=== PATIENT | female | born 1995 | race Caucasian/White ===

== ENCOUNTER 2020-04-04 19:42 | Emergency (ER) | payer OTHER ==
[2020-04-04] MEDS ORDERED: MORPHINE 4 MG/ML 1ML VIAL/SYRINGE (J2270) As Ordered ONE (19:43)
[2020-04-04] MEDS ORDERED: MORPHINE 4 MG/ML 1ML VIAL/SYRINGE (J2270) ONE (19:43)
[2020-04-04] MEDS ORDERED: ISOVUE-370 76% 100ML VIAL As Ordered ONE (22:06)
[2020-04-04] MEDS ORDERED: KETOROLAC 30 MG/ML 1ML VIAL As Ordered ONE (23:28)
[2020-04-04] MEDS ORDERED: KETOROLAC 30 MG/ML 1ML VIAL ONE (23:28)
[2020-05-04 18:07] LABS: BASO # 0.1 10^3/uL (0.0-0.2); BASO % 0.8 % (0.0-1.0); EOS # 0.1 10^3/uL (0.0-0.5); EOS % 0.8 % (0.0-3.0); HEMATOCRIT 33.1 % (36.0-47.0); HEMOGLOBIN 10.5 g/dl (12.0-15.5); LYMPH # 1.7 10^3/uL (1.5-5.0); LYMPH % 24.3 % (24.0-44.0); MEAN CORPUSCULAR HEMOGLOBIN 30.2 pg (27.0-33.0); MEAN CORPUSCULAR HGB CONC 31.7 g/dl (32.0-36.5); MEAN CORPUSCULAR VOLUME 95.1 fl (80.0-96.0); MONO # 0.4 10^3/uL (0.0-0.8); MONO % 5.3 % (0.0-5.0); NEUTROPHILS # 4.9 10^3/uL (1.5-8.5); NEUTROPHILS % 68.5 % (36.0-66.0); PLATELET COUNT, AUTOMATED 421 10^3/uL (150-450); RED BLOOD COUNT 3.48 10^6/uL (4.00-5.40); WHITE BLOOD COUNT 7.2 10^3/uL (4.0-10.0)
[2020-05-17 10:10] LABS: ALBUMIN 4.2 GM/DL (3.2-5.2); ALT/SGPT 11 U/L (12-78); BILIRUBIN,TOTAL 0.5 MG/DL (0.2-1.0); BLOOD UREA NITROGEN 11 MG/DL (7-18); CALCIUM LEVEL 9.8 MG/DL (8.5-10.1); CARBON DIOXIDE LEVEL 29 MEQ/L (21-32); CHLORIDE LEVEL 106 MEQ/L (98-107); GLOMERULAR FILTRATION RATE > 60.0 (>60); GLUCOSE, FASTING 91 MG/DL (70-100); LIPASE 492 U/L (73-393); POTASSIUM SERUM 4.3 MEQ/L (3.5-5.1); SODIUM LEVEL 140 MEQ/L (136-145); TOTAL PROTEIN 7.6 GM/DL (6.4-8.2)
[2020-05-17 10:11] LABS: HCG, SERUM QUALITATIVE NEGATIVE (NEGATIVE)
[2020-05-17 10:14] LABS: AMPHETAMINES LEVEL URINE NEGATIVE (NEGATIVE); BARBITURATES URINE NEGATIVE (NEGATIVE); BENZODIAZEPINES URINE NEGATIVE (NEGATIVE); CANNABINOIDS URINE NEGATIVE (NEGATIVE); COCAINE METABOLITE URINE NEGATIVE (NEGATIVE); METHADONE URINE NEGATIVE (NEGATIVE); OPIATES URINE POSITIVE (NEGATIVE); PHENCYCLIDINE URINE NEGATIVE (NEGATIVE)
[2020-05-19 11:20] LABS: APPEARANCE, URINE HAZY (CLEAR); BACTERIA, URINE AUTO NEGATIVE (NEGATIVE); BILIRUBIN, URINE AUTO NEGATIVE (NEGATIVE); BLOOD, URINE BLOOD NEGATIVE (NEGATIVE); COLOR, URINE STRAW (YELLOW); GLUCOSE, URINE (UA) AUTO NEGATIVE (NEGATIVE); KETONE, URINE AUTO NEGATIVE (NEGATIVE); LEUKOCYTE ESTERASE, URINE AUTO NEGATIVE (NEGATIVE); MUCUS, URINE SMALL (NEGATIVE); NITRITE, URINE AUTO NEGATIVE (NEGATIVE); PROTEIN, URINE AUTO NEGATIVE (NEGATIVE); RBC, URINE AUTO 1 /HPF (0-3); SQUAMOUS EPITHELIAL CELL UR AU 21 /HPF (0-6); UROBILINOGEN, URINE AUTO 0.2 mg/dL (0.0-2.0); WBC, URINE AUTO 0 /HPF (0-3)
[2020-05-19 11:21] LABS: SPECIFIC GRAVITY URINE AUTO >1.060 (1.002-1.035)
== END 2020-04-05 02:00 | disposition home or self-care (01) ==
LOC: M ED 19:42
DX: N83.201 Unspecified ovarian cyst, right side (principal); D64.9 Anemia, unspecified; M51.9 Unspecified thoracic, thoracolumbar and lumbosacral intervertebral disc disorder; F17.290 Nicotine dependence, other tobacco product, uncomplicated
CPT/HCPCS: 74177; 76830; 76856; 80053; 80307; 81001; 83605; 83690; 84703; 85025; 87040; 87086; 93976; 96374; 96375; 99284; J1885; J2270; Q9967

== ENCOUNTER 2020-05-17 12:59 | Emergency (ER) | payer OTHER ==
[~2020-05-17] VITALS: Ht 147.3 cm; Wt 44.9 kg
[2020-05-17] MEDS ORDERED: TRAM50TA2 PO (13:09)
[2020-05-17] MEDS ORDERED: KETOROLAC 30 MG/ML 1ML VIAL IV ONE (13:30)
[2020-05-17] MEDS ORDERED: diphenhydrAMINE 50MG/ML VIAL (J1200) IV ONE (13:30)
[2020-05-17] MEDS ORDERED: METOCLOPRAMIDE INJ 10MG/2ML VIAL (J2765 PER 1) IV ONE (13:30)
[2020-05-17] MEDS ORDERED: NS 1,000 ML IV ONE (13:30)
[2020-05-17] MEDS ORDERED: BENZOCAINE 20% GEL 9GM TUBE (ANBESOL MAX STRENGTH) TOP ONE (13:30)
[2020-05-17] MEDS ORDERED: AUGM875T28 PO (15:33)
[2020-05-17 15:55] VITALS: BP 126/83
== END 2020-05-17 15:57 | disposition home or self-care (01) ==
LOC: M ED 12:59
DX: K02.9 Dental caries, unspecified (principal); G43.909 Migraine, unspecified, not intractable, without status migrainosus; Z79.899 Other long term (current) drug therapy
CPT/HCPCS: 84702; 96361; 96374; 96375; 99283; J1200; J1885; J2765

== ENCOUNTER → 2020-05-26 | Outpatient (CLI) | payer OTHER ==
[~2020-05-26] MED LIST: ABIL1TAB13 PO; ALBU83IN NEB; AUGM875T28 PO; COMPMIS43 XX; KLON0.5T PO; PRED20TA PO; TRAM50TA2 PO; VITA50005 PO
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
== END ==
LOC: M PAIN 08:30
PROVIDERS: ATTEND Family Medicine
DX: M54.2 Cervicalgia (principal); M54.89 Other dorsalgia; F17.290 Nicotine dependence, other tobacco product, uncomplicated; Z79.899 Other long term (current) drug therapy

== ENCOUNTER 2020-07-08 17:10 | Emergency (ER) | payer OTHER ==
[~2020-07-08] VITALS: Ht 147.3 cm; Wt 44.8 kg
[~2020-07-08 17:10] MED LIST changes: -ABIL1TAB13 PO; -ALBU83IN NEB; -COMPMIS43 XX; -KLON0.5T PO; -PRED20TA PO; -VITA50005 PO
[2020-07-08] MEDS ORDERED: ABIL1TAB13 PO (17:24)
[2020-07-08] MEDS ORDERED: VITA50005 PO (17:24)
[2020-07-08] MEDS ORDERED: KLON0.5T PO (17:24)
[2020-07-08] MEDS ORDERED: ALBUTEROL 90 MCG/ACT 8GM HFA INHALER INH ONE (17:45)
[2020-07-08] MEDS ORDERED: NS 1,000 ML IV ONE (17:45)
[2020-07-08 18:33] LABS: VENOUS BASE EXCESS -7.8 (-2.0-2.0); VENOUS HCO3 16.7 MEQ/L (23.0-27.0); VENOUS O2 SATURATION 71.2 % (60.0-80.0); VENOUS PARTIAL PRESSURE CO2 30.8 mmHg (38.0-50.0); VENOUS PARTIAL PRESSURE O2 38.8 mmHg (30.0-50.0); VENOUS PH 7.351 UNITS (7.330-7.430); VENOUS STANDARD HCO3 17.7 MEQ/L; VENOUS TOTAL CO2 17.6 MEQ/L (24.0-28.0)
[2020-07-08 18:38] LABS: BASO % 0.4 % (0.0-1.0); EOS % 0.3 % (0.0-3.0); HEMATOCRIT 33.4 % (36.0-47.0); HEMOGLOBIN 10.8 g/dl (12.0-15.5); LYMPH # 1.5 10^3/uL (1.5-5.0); LYMPH % 20.1 % (24.0-44.0); MEAN CORPUSCULAR HEMOGLOBIN 29.8 pg (27.0-33.0); MEAN CORPUSCULAR HGB CONC 32.3 g/dl (32.0-36.5); MONO # 0.4 10^3/uL (0.0-0.8); MONO % 5.5 % (0.0-5.0); NEUTROPHILS # 5.4 10^3/uL (1.5-8.5); NEUTROPHILS % 73.4 % (36.0-66.0); PLATELET COUNT, AUTOMATED 193 10^3/uL (150-450); RED BLOOD COUNT 3.63 10^6/uL (4.00-5.40); WHITE BLOOD COUNT 7.3 10^3/uL (4.0-10.0)
[2020-07-08 19:19] LABS: ALBUMIN 3.9 GM/DL (3.2-5.2); ALT/SGPT 12 U/L (12-78); BILIRUBIN,DIRECT 0.1 MG/DL (0.0-0.2); BILIRUBIN,TOTAL 0.6 MG/DL (0.2-1.0); BLOOD UREA NITROGEN 4 MG/DL (7-18); CALCIUM LEVEL 8.3 MG/DL (8.5-10.1); CARBON DIOXIDE LEVEL 19 MEQ/L (21-32); CHLORIDE LEVEL 112 MEQ/L (98-107); CK-MB VALUE MASS < 1.0 NG/ML (<3.6); CPK CREATINE PHOSPHOKINASE 86 U/L (26-192); CREATININE FOR GFR 0.39 MG/DL (0.55-1.30); GLOMERULAR FILTRATION RATE > 60.0 (>60); GLUCOSE, FASTING 72 MG/DL (70-100); HCG, SERUM QUANTITATIVE 74414 MIU/ML; MB/CK RELATIVE INDEX 1.16 (< OR =4); NT-PRO BNP 14 PG/ML (<125); SODIUM LEVEL 140 MEQ/L (136-145); THYROID STIMULATING HORMONE 0.833 uIU/ML (0.358-3.740); THYROXINE (T4) 10.2 UG/DL (4.5-12.0); TOTAL PROTEIN 6.2 GM/DL (6.4-8.2); TROPONIN I < 0.02 NG/ML (< 0.10)
--- NOTE | 2020-07-08 19:31 | ECGEPIP ---
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
[2020-07-08] MEDS ORDERED: POTASSIUM CHLORIDE 10 MEQ SR TABLET PO ONE (20:00)
[2020-07-08] MEDS ORDERED: ALBU83IN NEB (20:00)
[2020-07-08] MEDS ORDERED: COMPMIS43 XX (20:00)
[2020-07-08] MEDS ORDERED: PRED20TA PO (20:00)
[2020-07-08] MEDS ORDERED: predniSONE 20 MG TAB PO ONE (20:00)
[2020-07-08 20:26] VITALS: BP 116/68
== END 2020-07-08 20:28 | disposition home or self-care (01) ==
LOC: M ED 17:10
DX: O99.511 Diseases of the respiratory system complicating pregnancy, first trimester (principal); J45.901 Unspecified asthma with (acute) exacerbation; O99.281 Endocrine, nutritional and metabolic diseases complicating pregnancy, first trimester; E87.6 Hypokalemia; R06.02 Shortness of breath; O99.331 Smoking (tobacco) complicating pregnancy, first trimester; F17.290 Nicotine dependence, other tobacco product, uncomplicated; Z3A.01 Less than 8 weeks gestation of pregnancy; Z79.899 Other long term (current) drug therapy

== ENCOUNTER 2020-07-12 13:37 | Emergency (ER) | payer OTHER ==
[~2020-07-12] VITALS: Ht 147.3 cm; Wt 45.9 kg
[~2020-07-12 13:37] MED LIST changes: +ABIL1TAB13 PO; +ALBU83IN NEB; +COMPMIS43 XX; +KLON0.5T PO; +PRED20TA PO; +VITA50005 PO
[2020-07-12 15:27] LABS: HEMATOCRIT 29.9 % (36.0-47.0); HEMOGLOBIN 9.8 g/dl (12.0-15.5); MEAN CORPUSCULAR HEMOGLOBIN 30.2 pg (27.0-33.0); MEAN CORPUSCULAR HGB CONC 32.8 g/dl (32.0-36.5); MEAN CORPUSCULAR VOLUME 92.3 fl (80.0-96.0); PLATELET COUNT, AUTOMATED 213 10^3/uL (150-450); RED BLOOD COUNT 3.24 10^6/uL (4.00-5.40); WHITE BLOOD COUNT 13.6 10^3/uL (4.0-10.0)
--- NOTE | 2020-07-12 15:34 | REP ---
INDICATION: preg. COMPARISON: None. TECHNIQUE: Real-time sonographic evaluation of gravid uterus performed. FINDINGS: There is a single living intrauterine gestation. The estimated gestational age 8 weeks 2 days based on a crown-rump length of 18 mm. EDC is 02/19/2021. The heart rate is 169 beats per minute. A yolk sac is also seen within the gestational sac. There is a small subchorionic hemorrhage measuring 14 x 4 x 27 mm. Cystic structure in the right ovary demonstrates internal septations and measures 2.1 cm maximally likely representing a corpus luteum. Blood flow seen in each ovary with duplex Doppler evaluation, with no torsion. IMPRESSION: Viable intrauterine gestation with estimated gestational age 8 weeks 2 days as discussed above. Small subchorionic hemorrhage. <Electronically signed by Edi Jose > 07/12/20 [id number]
[2020-07-12] MEDS ORDERED: clonazePAM 0.5 MG TAB PO ONE (16:00)
[2020-07-12 16:07] LABS: ACETAMINOPHEN LEVEL < 2.0 UG/ML (10.0-30.0); ALBUMIN 4.1 GM/DL (3.2-5.2); ALT/SGPT 10 U/L (12-78); BILIRUBIN,DIRECT < 0.1 MG/DL (0.0-0.2); BILIRUBIN,TOTAL 0.2 MG/DL (0.2-1.0); BLOOD UREA NITROGEN 7 MG/DL (7-18); CALCIUM LEVEL 8.7 MG/DL (8.5-10.1); CARBON DIOXIDE LEVEL 21 MEQ/L (21-32); CHLORIDE LEVEL 114 MEQ/L (98-107); CREATININE FOR GFR 0.57 MG/DL (0.55-1.30); ETHYL ALCOHOL (ETHANOL) < 0.003 % (0.000-0.010); GLOMERULAR FILTRATION RATE > 60.0 (>60); GLUCOSE, FASTING 121 MG/DL (70-100); POTASSIUM SERUM 3.7 MEQ/L (3.5-5.1); SODIUM LEVEL 141 MEQ/L (136-145); THYROID STIMULATING HORMONE 0.155 uIU/ML (0.358-3.740); TOTAL PROTEIN 6.7 GM/DL (6.4-8.2)
[2020-07-12 16:09] LABS: AMPHETAMINES LEVEL URINE NEGATIVE (NEGATIVE); BARBITURATES URINE NEGATIVE (NEGATIVE); BENZODIAZEPINES URINE NEGATIVE (NEGATIVE); CANNABINOIDS URINE NEGATIVE (NEGATIVE); COCAINE METABOLITE URINE NEGATIVE (NEGATIVE); METHADONE URINE NEGATIVE (NEGATIVE); OPIATES URINE NEGATIVE (NEGATIVE); PHENCYCLIDINE URINE NEGATIVE (NEGATIVE)
[2020-07-12 16:15] VITALS: BP 130/67
[2020-07-13] MEDS ORDERED: PRED20TA PO (13:52)
== END 2020-07-12 16:47 | disposition home or self-care (01) ==
LOC: M ED 13:37 → EDBD 13:37 → M ED 16:47
DX: O99.341 Other mental disorders complicating pregnancy, first trimester (principal); F43.0 Acute stress reaction; O99.511 Diseases of the respiratory system complicating pregnancy, first trimester; J45.909 Unspecified asthma, uncomplicated; Z3A.08 8 weeks gestation of pregnancy; Z79.899 Other long term (current) drug therapy
CPT/HCPCS: 36415; 76801; 80048; 80076; 80307; 84443; 85027; 93976; 99284; G0480

== ENCOUNTER 2020-07-13 13:42 | Inpatient (IN) | payer OTHER ==
[~2020-07-13] VITALS: Ht 147.3 cm; Wt 45.7 kg
[2020-07-13] MEDS ORDERED: PRED20TA PO (13:52)
[2020-07-13 14:37] LABS: HEMATOCRIT 33.8 % (36.0-47.0); HEMOGLOBIN 10.7 g/dl (12.0-15.5); MEAN CORPUSCULAR HEMOGLOBIN 29.7 pg (27.0-33.0); MEAN CORPUSCULAR HGB CONC 31.7 g/dl (32.0-36.5); MEAN CORPUSCULAR VOLUME 93.9 fl (80.0-96.0); PLATELET COUNT, AUTOMATED 223 10^3/uL (150-450); WHITE BLOOD COUNT 12.4 10^3/uL (4.0-10.0)
[2020-07-13 15:05] LABS: AMPHETAMINES LEVEL URINE NEGATIVE (NEGATIVE); BARBITURATES URINE NEGATIVE (NEGATIVE); BENZODIAZEPINES URINE NEGATIVE (NEGATIVE); CANNABINOIDS URINE NEGATIVE (NEGATIVE); COCAINE METABOLITE URINE NEGATIVE (NEGATIVE); METHADONE URINE NEGATIVE (NEGATIVE); OPIATES URINE NEGATIVE (NEGATIVE); PHENCYCLIDINE URINE NEGATIVE (NEGATIVE)
[2020-07-13 15:14] LABS: HCG, SERUM QUALITATIVE POSITIVE (NEGATIVE)
[2020-07-13 15:19] LABS: ACETAMINOPHEN LEVEL 5.9 UG/ML (10.0-30.0); ALBUMIN 4.1 GM/DL (3.2-5.2); ALT/SGPT 11 U/L (12-78); BILIRUBIN,DIRECT < 0.1 MG/DL (0.0-0.2); BILIRUBIN,TOTAL 0.2 MG/DL (0.2-1.0); BLOOD UREA NITROGEN 11 MG/DL (7-18); CALCIUM LEVEL 8.9 MG/DL (8.5-10.1); CARBON DIOXIDE LEVEL 21 MEQ/L (21-32); CHLORIDE LEVEL 110 MEQ/L (98-107); CREATININE FOR GFR 0.58 MG/DL (0.55-1.30); ETHYL ALCOHOL (ETHANOL) < 0.003 % (0.000-0.010); GLOMERULAR FILTRATION RATE > 60.0 (>60); GLUCOSE, FASTING 81 MG/DL (70-100); POTASSIUM SERUM 3.3 MEQ/L (3.5-5.1); SALICYLATE LEVEL 27.6 MG/DL (5.0-30.0); SODIUM LEVEL 140 MEQ/L (136-145); TOTAL PROTEIN 7.2 GM/DL (6.4-8.2)
[2020-07-13] MEDS ORDERED: POTASSIUM CHLORIDE 10 MEQ SR TABLET PO ONE (15:45)
[2020-07-13] MEDS ORDERED: traMADol 50 MG TAB PO PRN (16:45)
[2020-07-13] MEDS ORDERED: MAALOX 30 ML SUSP *UDC PO PRN (16:45)
[2020-07-13] MEDS ORDERED: traZODone 50 MG TAB PO PRN (16:45)
[2020-07-13] MEDS ORDERED: ALBUTEROL SULFATE 2.5 MG/0.5 ML INH NEB SOLN NEB PRN (16:45)
[2020-07-13] MEDS ORDERED: IBUPROFEN 400 MG TAB PO PRN (16:45)
[2020-07-13] MEDS ORDERED: MOM 30ML SUSPENSION UDC PO PRN (16:45)
[2020-07-13 21:07] VITALS: BP 115/55
[2020-07-13] MEDS ORDERED: QUEtiapine FUMARATE 50 MG TAB PO ONE (22:00)
[2020-07-13] MEDS: predniSONE 20 MG TAB PO SCH (22:09)
[2020-07-13] MEDS: ARIPiprazole 2 MG TAB PO SCH (22:09)
[2020-07-14 06:31] VITALS: BP 122/58
[2020-07-14] MEDS ORDERED: NICOTINE 7 MG/24 HR TRANSDERMAL TD SCH (09:00)
[2020-07-14] MEDS ORDERED: PRENATAL VITAMINS CHEWABLE TABLET PO SCH (09:00)
[2020-07-14] MEDS: ARIPiprazole 2 MG TAB PO SCH (10:34)
[2020-07-14] MEDS: predniSONE 20 MG TAB PO SCH (10:34)
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
--- NOTE | 2020-07-14 15:01 | MHDSPDOC ---
[facility] Discharge Summary Discharge Summary DATE OF ADMISSION: Jul 13, 2020 at 16:44 DATE OF DISCHARGE: Jul 14, 2020 at 13:00 DISCHARGE DIAGNOSES: Unspecified Schizophrenia and Other Psychotic Disorders Anxiety Disorder Borderline Personality Disorder, per patient's report Insomnia REASON FOR ADMISSION:Chief Complaint - "I had no sleep for the last 4 days and I was hearing stuff and seeing things that weren't there" History of Present Illness HISTORY OF THE PRESENT ILLNESS: Patient is a 24 -year-old , Unemployed, Domiciled , female, who brought to [facility] by her spouse after she was seen by her PCP for anxiety. She reports that she had 4 days of no sleep and was complaining of auditory and visual hallucinations. She states that she was prescribed Klonopin by her prescriber and that when she was trying to get her medications, she accidently dropped the bottle into the toilet. At the time of the initial psychiatric assessment, patient was reporting no auditory or visual hallucinations. She denies delusional, bizarre or psychotic symptoms. She was not observed with any jayson or obsessions or any other psychotic symptoms. She denied depression, anxiety, SI or HI. CONSULTANTS INVOLVED: None - patient left before this was done TREATMENT AND PROGRESS ON THE UNIT: Patient was admitted to the [facility] on a 9.39 legal status he was afforded the following treatment modalities: 1) Individual Therapy 2) Group Therapy 3) Medication Management 4) Milieu Therapy 5) Safe Environment HOSPITAL COURSE: Patient was admitted to [facility] on a 9.39 legal status. On initial psychiatric assessment patient denies having auditory or visual hallucinations. DISCHARGE ASSESSMENT: Patient is denying auditory or visual hallucinations, denies depression, suicidal/homicidal ideation. She is not observed with abnormal psychotic symptoms. She is no longer reporting any symptoms that require her continued hospitalization involuntarily. Patient requested to be discharged today. She was offered a voluntary admission and she declined. At this time, due to her normal mental status, I cannot with good petra mandate her to the hospital. Patient called her while she was in the office, her spouse feels that she has improved and can return home. Patient also has a dental appointment at 1:45 that she is wanting to go to. She also reports that she is afraid to stay on the unit due to agitated peers and states "I am , I don't know that I needed to be admitted." She reports that last night was the first night that she had received a full night's sleep. Call to pharmacy about any safe anxiolytics and Pharmacist feels that patient should refer this question to her OBGYN. MENTAL STATUS EXAMINATION ON DISCHARGE: Patient is a 24 -year-old , Unemployed, Domiciled , female, who brought to [facility] by her spouse after she was seen by her PCP for anxiety. She reports that she had 4 days of no sleep and was complaining of auditory and visual hallucinations. Hygiene is good, dressed appropriately, appears her stated age, makes good eye contact, no psychomotor changes. Speech: Is fluid, conversant, normal rate, tone and volume Language skills are intact Thought processes including: linear and goal oriented Thought content: denies depression and anxiety, SI/HI. Abstract reasoning, and computation: fair Description of associations: denies, none observed Description of abnormal or psychotic thoughts: denies, none observed. Reports no A/V/T hallucinations at this time Judgment: good Insight: good Orientation: alert and oriented to person, place, time and situation Recent and remote memory: intact Attention span and concentration: good Language: expansive Fund of knowledge: below average Mood: euthymic Affect: reactive MEDICATIONS ON DISCHARGE: Patient continued on her home medications, no changes and was encouraged to be seen by OBGYN for recommendations for safe anxiolytic PLAN/FOLLOWUP ARRANGEMENTS: [facility] The amount of time spent in the coordination of care for this patient was approximately 15 minutes. Vital Signs/I&Os Vital Signs Date Time Temp Pulse Resp B/P (MAP) Pulse Ox O2 Delivery O2 Flow Rate FiO2 07/14/20 06:31 98.4 92 16 122/58 (79) Room Air 07/13/20 21:07 99 Laboratory Data Labs 24H Laboratory Tests 2 07/13/20 17:37: Coronavirus (COVID-19)(PCR) NEGATIVE Medications Scheduled Aripiprazole (Abilify) 2 Mg Tablet, 2 MG PO TID, (Reported) Ergocalciferol (Vitamin D2) (Vitamin D2) 50,000 Units Cap, 50,000 UNITS PO QWEEK, (Reported) MONDAYS Scheduled PRN Albuterol Sulf (Albuterol Sulfate) 2.5 Mg/3 Ml Vial.neb, 1 VIAL NEB Q4HP PRN for wheezing, #50 Clonazepam (Klonopin) 0.5 Mg Tablet, 0.5 MG PO BID PRN for ANXIETY, (Reported) Tramadol HCl (Tramadol HCl) 50 Mg Tablet, 50 MG PO QID PRN for PAIN, (Reported) Allergies Coded Allergies: No Known Allergies (Unverified , 05/17/20) FERN YATES NP Jul 14, 2020 15:01
[2020-07-17] MEDS ORDERED: VITAMIN D 50,000 UNITS CAPSULE (ERGOCALCIFEROL 1.25MG) PO SCH (09:00)
== END 2020-07-14 13:00 | disposition home or self-care (01) | DRG 885 ==
LOC: M ED 13:42 → M ED INP 16:44 → M PSY 20:54
PROVIDERS: ADMIT Psychiatry & Neurology Psychiatry; ATTEND Psychiatry & Neurology Psychiatry
DX: F20.9 Schizophrenia, unspecified (principal); F41.9 Anxiety disorder, unspecified; F60.3 Borderline personality disorder; G47.00 Insomnia, unspecified

== ENCOUNTER 2020-08-13 00:47 | Emergency (ER) | payer OTHER ==
[~2020-08-13] VITALS: Ht 147.3 cm; Wt 45.0 kg
[2020-08-13] MEDS ORDERED: VITA50TA7 (00:57)
[2020-08-13] MEDS ORDERED: FLUO10CA16 (00:57)
[2020-08-13] MEDS ORDERED: QUET1TAB7 (00:57)
[2020-08-13] MEDS ORDERED: NITR100C2 (00:57)
[2020-08-13] MEDS ORDERED: FERR325T18 (00:57)
[2020-08-13] MEDS ORDERED: PEGPOW (00:57)
[2020-08-13 01:46] LABS: BASO % 0.3 % (0.0-1.0); EOS # 0.1 10^3/uL (0.0-0.5); EOS % 0.8 % (0.0-3.0); HEMATOCRIT 31.1 % (36.0-47.0); HEMOGLOBIN 10.1 g/dl (12.0-15.5); LYMPH # 1.7 10^3/uL (1.5-5.0); LYMPH % 21.1 % (24.0-44.0); MEAN CORPUSCULAR HEMOGLOBIN 29.4 pg (27.0-33.0); MEAN CORPUSCULAR HGB CONC 32.5 g/dl (32.0-36.5); MEAN CORPUSCULAR VOLUME 90.7 fl (80.0-96.0); MONO # 0.6 10^3/uL (0.0-0.8); MONO % 7.1 % (0.0-5.0); NEUTROPHILS # 5.6 10^3/uL (1.5-8.5); NEUTROPHILS % 70.4 % (36.0-66.0); PLATELET COUNT, AUTOMATED 161 10^3/uL (150-450); RED BLOOD COUNT 3.43 10^6/uL (4.00-5.40); WHITE BLOOD COUNT 7.9 10^3/uL (4.0-10.0)
[2020-08-13 02:31] LABS: BLOOD UREA NITROGEN 7 MG/DL (7-18); CALCIUM LEVEL 9.1 MG/DL (8.5-10.1); CARBON DIOXIDE LEVEL 22 MEQ/L (21-32); CHLORIDE LEVEL 106 MEQ/L (98-107); CREATININE FOR GFR 0.46 MG/DL (0.55-1.30); GLOMERULAR FILTRATION RATE > 60.0 (>60); GLUCOSE, FASTING 90 MG/DL (70-100); HCG, SERUM QUANTITATIVE 44772 MIU/ML; POTASSIUM SERUM 3.4 MEQ/L (3.5-5.1); SODIUM LEVEL 137 MEQ/L (136-145)
[2020-08-13] MEDS ORDERED: RHOGAM 300 MCG (1500 IU) INJ (J2790) IM ONE (03:00)
--- NOTE | 2020-08-13 03:16 | REPVR ---
PROCEDURE INFORMATION: Exam: US First Trimester, Transabdominal Exam date and time: 08/13/2020 2:08 AM Age: 24 years old Clinical indication: Lmp or gestational age (in weeks): 12w 5d; Other: Vaginal bleeding; ; Additional info: Vag bleeding, soft, dilated cervix, 12 wks preg TECHNIQUE: Imaging protocol: Real-time transabdominal obstetrical ultrasound of the maternal pelvis and a first trimester , less than 14 weeks 0 days, with image documentation. COMPARISON: No relevant prior studies available. FINDINGS: Gestation: Single live intrauterine fetus. Embryonic/ heart rate: 150 bpm. Placenta: Small subchorionic bleed. Amniotic fluid: Amniotic fluid is normal for gestational age. BIOMETRY: Gestational age (AUA): 12 weeks 3 day. Estimated due date (AUA): 02/22/2021. [place]-Rump length: 5.9 cm. IMPRESSION: 1. Single living intrauterine fetus with estimated gestational age of 12 weeks 3 days. 2. Small subchorionic bleed Electronically signed by: Baldomero Mccullough On 08/13/2020 03:16:46 AM
[2020-08-13 03:45] VITALS: BP 100/61
== END 2020-08-13 04:00 | disposition home or self-care (01) ==
LOC: M ED 00:47
DX: O20.0 Threatened abortion (principal); O20.8 Other hemorrhage in early pregnancy; Z3A.12 12 weeks gestation of pregnancy; Z79.51 Long term (current) use of inhaled steroids; Z79.899 Other long term (current) drug therapy
CPT/HCPCS: 76801; 80048; 81001; 84702; 85025; 86850; 86900; 86901; 96372; 99284; J2790

== ENCOUNTER 2020-09-08 19:39 | Emergency (ER) | payer OTHER ==
[~2020-09-08] VITALS: Ht 147.3 cm; Wt 46.5 kg
[~2020-09-08 19:39] MED LIST changes: +FERR325T18; +FLUO10CA16; +NITR100C2; +PEGPOW; +QUET25TA3; +VITA50TA7
[2020-09-08] MEDS ORDERED: ZOFR4TAB16 PO (19:52)
--- OUTSIDE RECORDS SUMMARY | 2020-09-08 19:57 | CCD ---
Author Author [facility] Organization [facility] [facility] Address Unknown Phone Unavailable Care Team Providers Care Patient Registration Rep Name Role Phone Elder Lu Unavailable PROBLEMS No Information ALLERGIES No Known Allergies ENCOUNTERS from 1995 to 2020-06-29 Encounter Location Date Provider Diagnosis [facility] [address] [place] [phone] Jun, Elder Lu IMMUNIZATIONS No Information SOCIAL HISTORY Sex Assigned At : Social History Observation Description Sex Assigned At Unknown Alcohol Screening: Question Answer Notes Did you have a drink containing alcohol in the past year? No Points 0 Interpretation Negative REASON FOR REFERRAL No Information VITAL SIGNS No information MEDICATIONS Medication SIG (Take, Route, Frequency, Duration) Start Date En d Date Status Flexeril 10 mg 30 10 mg one tablet orally every 8 hours prn pain Active Tramadol HCl 50 MG 1 tablet as needed Orally Once a day Active Hydrocodone-Acetaminophen 7.5-325 MG 1 tablet as needed Orally ever y 6 hrs Active Baclofen 5 MG 1 tablet with food or milk O rally Three times a day PRN for 30 days May, Active Hydrocodone-Acetaminophen 5-325 MG 1 tablet as needed Orally every 6 hrs Active PROCEDURES No Information RESULTS No Results REASON FOR VISIT MRI ORDERS MEDICAL (GENERAL) HISTORY Type Description Date Surgical History appendectomy Hospitalization History sepsis kidney infection, irr egular heart rate with low potassium. 02/2020 Goals Section No Information Health Concerns No Information MEDICAL EQUIPMENT No Information MENTAL STATUS No Information FUNCTIONAL STATUS No Information ASSESSMENTS No Information PLAN OF TREATMENT Medication Medication Name Sig Start Date Stop Date Baclofen 5 MG 1 tablet with food or milk O rally Three times a day PRN for 30 days May, Insurance Providers Payer Name Payer Address Payer Phone Insured Name Patient Relati onship to Insured Coverage Start Date Coverage End Date [facility] [address] [place] THE [facility] [address] [place] self
--- OUTSIDE RECORDS SUMMARY | 2020-09-08 19:57 | CCD ---
Author Author [facility] Organization [facility] [employer] [facility] Address Unknown Phone Unavailable Care Team Providers Care Technical Support Consultant Name Role Phone Elder Lu Unavailable PROBLEMS No Information ALLERGIES No Known Allergies ENCOUNTERS from 1995 to 2020-09-06 Encounter Location Date Provider Diagnosis [facility] [address] [place] [phone] Aug, Elder Lu IMMUNIZATIONS No Information SOCIAL HISTORY Sex Assigned At : Social History Observation Description Sex Assigned At Unknown Alcohol Screening: Question Answer Notes Did you have a drink containing alcohol in the past year? No Points 0 Interpretation Negative REASON FOR REFERRAL No Information VITAL SIGNS No information MEDICATIONS Medication SIG (Take, Route, Frequency, Duration) Notes Start Da te End Date Status Flexeril 10 mg 30 10 [...] RESULTS No Results REASON FOR VISIT MRI EXTENSION MEDICAL (GENERAL) HISTORY Type Description Date Surgical [...] a day PRN for 30 days May, Next Appt Details Provider Name:Elder Lu, 2020-10-27 09:15:00 AM, [address] [place], [phone], Insurance Providers Payer Name Payer Address Payer Phone Insured Name Patient Relati onship to Insured Coverage Start Date Coverage End Date [facility] [address] [address] [place] [id number] [place] self
--- OUTSIDE RECORDS SUMMARY | 2020-09-08 19:57 | CCD ---
Author Author [facility] Organization [facility] Address Unknown Phone Unavailable Care Team Providers Care Tool Distributor Name Role Phone Elder Lu Unavailable PROBLEMS No Information ALLERGIES No Known Allergies ENCOUNTERS from 1995 to 2020-06-14 Encounter Location Date Provider Diagnosis [facility] [address] [place] [phone] May, Elder Lu IMMUNIZATIONS No Information SOCIAL HISTORY [...] RESULTS No Results REASON FOR VISIT MRI MEDICAL (GENERAL) HISTORY Type Description Date Surgical [...] Insured Coverage Start Date Coverage End Date [facility] [address] [place] [address] [place] self
--- OUTSIDE RECORDS SUMMARY | 2020-09-08 19:57 | CCD ---
Author Author [facility] Address Unknown Phone Unavailable Care Team Providers Care Concert Promoter Name Role Phone Rodríguez MCCARTHY Unavailable Unavailable DELL AWAD Unavailable Unavailable Re-disclosure Warning The records that you are about to access may contain information from federally-assisted alcohol or drug abuse programs. If such information is present, then the following federally mandated warning applies: This information has been disclosed to you from records protected by federal confidentiality rules (42 CFR part 2). The federal rules prohibit you from making any further disclosure of this information unless further disclosure is expressly permitted by the written consent of the person to whom it pertains or as otherwise permitted by 42 CFR part 2. A general authorization for the release of medical or other information is NOT sufficient for this purpose. The Federal rules restrict any use of the information to criminally investigate or prosecute any alcohol or drug abuse patient.The records that you are about to access may contain highly sensitive health information, the redisclosure of which is protected by Article 27-F of the [facility] Public Health law. If you continue you may have access to information: Regarding HIV / AIDS; Provided by facilities licensed or operated by the [facility] Office of Mental Health; or Provided by the [facility] Office for People With Developmental Disabilities. If such information is present, then the following [facility] mandated warning applies: This information has been disclosed to you from confidential records which are protected by state law. State law prohibits you from making any further disclosure of this information without the specific written consent of the person to whom it pertains, or as otherwise permitted by law. Any unauthorized further disclosure in violation of state law may result in a fine or chcf sentence or both. A general authorization for the release of medical or other information is NOT sufficient authorization for further disc losure. Encounters Encounter Providers Location Date Indications Data Source(s ) Outpatient Attender: JONNY BOWIELOKESHReferrer: ALIZA PIERREES 09/21/2020 12:00:00 AM [facility] Outpatient Referrer: ALIZA RITESH 09/21/2020 12:00:00 AM [facility] Unknown [address] [facility] [place] [address] 09/06/2020 12:00:00 AM EST eCW1 ([facility]) Unknown [address] [facility] [place] [address] 07/08/2020 12:00:00 AM EST eCW1 ([facility]) Unknown [address] [facility] [place] [address] 07/04/2020 12:00:00 AM EST eCW1 ([facility]) Unknown [address] [facility] [place] [address] 06/29/2020 12:00:00 AM EST eCW1 ([facility]) Unknown [address] [facility] [place] [address] 06/14/2020 12:00:00 AM EDT eCW1 ([facility]) Unknown [address] [facility] [place] [address] 05/30/2020 12:00:00 AM EDT eCW1 ([facility]) Outpatient [address] [facility] [place] [address] 05/26/2020 12:00:00 AM EDT eCW1 ([facility]) Medications Medication Brand Name Start Date Product Form Dose Route Admi nistrative Instructions Pharmacy Instructions Status Indications Reaction Description Data Source(s) Baclofen 5 MG Oral Tablet Baclofen 5 MG 05/26/2020 12:00:00 AM EDT 1.0 {tablet_with_food_or_milk} active Baclo fen 5 MG eCW1 ([facility]) Baclofen 5 MG Oral Tablet Baclofen 5 MG 05/26/2020 12:00:00 AM EDT 1.0 {tablet_with_food_or_milk} active Baclo fen 5 MG eCW1 ([facility]) Baclofen 5 MG Oral Tablet Baclofen 5 MG 05/26/2020 12:00:00 AM EDT 1.0 {tablet_with_food_or_milk} active Baclo fen 5 MG eCW1 ([facility]) Baclofen 5 MG Oral Tablet Baclofen 5 MG 05/26/2020 12:00:00 AM EDT 1.0 {tablet_with_food_or_milk} active Baclo fen 5 MG eCW1 ([facility]) Baclofen 5 MG Oral Tablet Baclofen 5 MG 05/26/2020 12:00:00 AM EDT 1.0 {tablet_with_food_or_milk} active Baclo fen 5 MG eCW1 ([facility]) Baclofen 5 MG Oral Tablet Baclofen 5 MG 05/26/2020 12:00:00 AM EDT 1.0 {tablet_with_food_or_milk} active Baclo fen 5 MG eCW1 ([facility]) Baclofen 5 MG Oral Tablet Baclofen 5 MG 05/26/2020 12:00:00 AM EDT 1.0 {tablet_with_food_or_milk} active Baclo fen 5 MG eCW1 ([facility]) Insurance Providers Payer name Policy type / Coverage type Policy ID Covered green party ID Covered green party's relationship to nathan Policy Nathan Plan Information [facility] O [id number] S [id number] [facility] [id number] [place]UST [id number] U [id number] Self [id number] Vital Signs ID Date Data Source UNK Name Value Range Interpretation Code Description Data Source(s) Diastolic blood pressure 78 mm[Hg] 78 mm[Hg] eCW1 ([facility]) Systolic blood pressure 134 mm[Hg] 134 mm[Hg] e CW1 ([facility]) Body temperature 97.3 [degF] 97.3 [degF] eCW1 ( [facility]) Respiratory rate 16 /min 16 /min eCW1 ([facility]) Heart rate 96 /min 96 /min eCW1 ([facility]) Body mass index (BMI) [Ratio] 20.31 kg/m2 20.31 kg/m2 eCW1 ([facility]) Body height 58 [in_i] 58 [in_i] eCW1 ([facility]) Body weight 97.2 [lb_av] 97.2 [lb_av] eCW1 ([facility]) Patient Treatment Plan of Care Planned Activity Planned Date Details Description Data Source (s) Baclofen 5 MG Oral Tablet 05/26/2020 12:00:00 AM EDT eCW1 ([facility]) Baclofen 5 MG Oral Tablet 05/26/2020 12:00:00 AM EDT eCW1 ([facility]) Baclofen 5 MG Oral Tablet 05/26/2020 12:00:00 AM EDT eCW1 ([facility]) Baclofen 5 MG Oral Tablet 05/26/2020 12:00:00 AM EDT eCW1 ([facility]) Baclofen 5 MG Oral Tablet 05/26/2020 12:00:00 AM EDT eCW1 ([facility]) Baclofen 5 MG Oral Tablet 05/26/2020 12:00:00 AM EDT eCW1 ([facility]) Baclofen 5 MG Oral Tablet 05/26/2020 12:00:00 AM EDT eCW1 ([facility])
--- OUTSIDE RECORDS SUMMARY | 2020-09-08 19:57 | CCD ---
Author Author [facility] [employer] [facility] Organization [facility] [employer] [facility] Address Unknown Phone Unavailable Care Team Providers Care Rubber Flap Cutter Name Role Phone Elder Lu Unavailable PROBLEMS No Information ALLERGIES No Known Allergies ENCOUNTERS from 1995 to 2020-07-08 Encounter Location Date Provider Diagnosis [facility] [address] [place] [phone] Jun, Elder Lu IMMUNIZATIONS No Information SOCIAL [...] RESULTS No Results REASON FOR VISIT MRI FYI MEDICAL (GENERAL) HISTORY Type Description Date Surgical [...] Insured Coverage Start Date Coverage End Date [facility] [address] [place] [address] [place] self
[2020-09-08 22:11] LABS: APPEARANCE, URINE CLEAR (CLEAR); BACTERIA, URINE AUTO NEGATIVE (NEGATIVE); BILIRUBIN, URINE AUTO NEGATIVE (NEGATIVE); BLOOD, URINE BLOOD NEGATIVE (NEGATIVE); COLOR, URINE YELLOW (YELLOW); GLUCOSE, URINE (UA) AUTO NEGATIVE (NEGATIVE); KETONE, URINE AUTO NEGATIVE (NEGATIVE); LEUKOCYTE ESTERASE, URINE AUTO NEGATIVE (NEGATIVE); MUCUS, URINE SMALL (NEGATIVE); NITRITE, URINE AUTO NEGATIVE (NEGATIVE); PROTEIN, URINE AUTO 1+ mg/dL (NEGATIVE); RBC, URINE AUTO 1 /HPF (0-3); SPECIFIC GRAVITY URINE AUTO 1.027 (1.002-1.035); SQUAMOUS EPITHELIAL CELL UR AU 3 /HPF (0-6); UROBILINOGEN, URINE AUTO 0.2 mg/dL (0.0-2.0); WBC, URINE AUTO 1 /HPF (0-3)
[2020-09-08 22:17] LABS: BASO % 0.4 % (0.0-1.0); EOS # 0.1 10^3/uL (0.0-0.5); EOS % 1.4 % (0.0-3.0); HEMATOCRIT 30.3 % (36.0-47.0); HEMOGLOBIN 9.8 g/dl (12.0-15.5); LYMPH # 1.9 10^3/uL (1.5-5.0); LYMPH % 22.7 % (24.0-44.0); MEAN CORPUSCULAR HEMOGLOBIN 29.9 pg (27.0-33.0); MEAN CORPUSCULAR HGB CONC 32.3 g/dl (32.0-36.5); MEAN CORPUSCULAR VOLUME 92.4 fl (80.0-96.0); MONO # 0.6 10^3/uL (0.0-0.8); MONO % 6.8 % (0.0-5.0); NEUTROPHILS # 5.7 10^3/uL (1.5-8.5); NEUTROPHILS % 68.5 % (36.0-66.0); PLATELET COUNT, AUTOMATED 167 10^3/uL (150-450); RED BLOOD COUNT 3.28 10^6/uL (4.00-5.40); WHITE BLOOD COUNT 8.3 10^3/uL (4.0-10.0)
--- OUTSIDE RECORDS SUMMARY | 2020-09-08 22:39 | CCD ---
Author Author [facility] Organization [facility] Address Unknown Phone Unavailable Care Team Providers Care Clinical Analyst Name Role Phone JACKNEIDARodríguez CAM[facility] Unavailable Unavailable DELL AWAD Unavailable Unavailable Re-disclosure [...] is protected by Article 27-F of the [facility] Public Health law. If you continue you may have access to information: Regarding HIV / AIDS; Provided by facilities licensed or operated by the [facility] Office of Mental Health; or Provided by the [facility] Office for People With Developmental Disabilities. If such information is present, then the following [facility] mandated warning applies: This information has [...] law may result in a fine or retirement sentence or both. A general authorization for the release of medical or other information is NOT sufficient authorization for further disc losure. Encounters Encounter Providers Location Date Indications Data Source(s ) Outpatient Attender: JONNY BOWIELOKESHReferrer: ALIZA PIERREES 09/21/2020 12:00:00 AM [facility] Outpatient Referrer: ALIZA RITESH 09/21/2020 12:00:00 AM [facility] Unknown [address] [facility] [address] [place] [address] 09/06/2020 12:00:00 AM EST eCW1 ([facility]) Unknown [address] [facility] [address] [address] 07/08/2020 12:00:00 AM EST eCW1 ([facility]) Unknown [address] [facility] [place] [address] 07/04/2020 12:00:00 AM EST eCW1 ([facility]) Unknown [address] [facility] [address] [place] [address] 06/29/2020 12:00:00 AM EST eCW1 ([facility]) Unknown [address] [facility] [address] [address] 06/14/2020 12:00:00 AM EDT eCW1 ([facility]) Unknown [address] [facility] [place] [address] 05/30/2020 12:00:00 AM EDT eCW1 ([facility]) Outpatient [address] [facility] [address] [address] 05/26/2020 12:00:00 AM EDT eCW1 ([facility]) Medications Medication Brand Name Start Date Product Form Dose Route Admi nistrative Instructions Pharmacy Instructions Status Indications Reaction Description Data Source(s) Baclofen 5 MG Oral Tablet Baclofen 5 MG 05/26/2020 12:00:00 AM EDT 1.0 {tablet_with_food_or_milk} active Baclo fen 5 MG eCW1 ([facility]) Baclofen 5 MG Oral Tablet Baclofen 5 MG 05/26/2020 12:00:00 AM EDT 1.0 {tablet_with_food_or_milk} active Baclo fen 5 MG eCW1 ([facility]) Baclofen 5 MG Oral Tablet Baclofen 5 MG 05/26/2020 12:00:00 AM EDT 1.0 {tablet_with_food_or_milk} active Baclo fen 5 MG eCW1 ([facility]) Baclofen 5 MG Oral Tablet Baclofen 5 MG 05/26/2020 12:00:00 AM EDT 1.0 {tablet_with_food_or_milk} active Baclo fen 5 MG eCW1 ([facility]) Baclofen 5 MG Oral Tablet Baclofen 5 MG 05/26/2020 12:00:00 AM EDT 1.0 {tablet_with_food_or_milk} active Baclo fen 5 MG eCW1 ([facility]) Baclofen 5 MG Oral Tablet Baclofen 5 MG 05/26/2020 12:00:00 AM EDT 1.0 {tablet_with_food_or_milk} active Baclo fen 5 MG eCW1 ([facility]) Baclofen 5 MG Oral Tablet Baclofen 5 MG 05/26/2020 12:00:00 AM EDT 1.0 {tablet_with_food_or_milk} active Baclo fen 5 MG eCW1 ([facility]) Insurance Providers Payer name Policy type / Coverage type Policy ID Covered alliance party ID Covered alliance party's relationship to nathan Policy Nathan Plan Information [facility] [id number] [facility] [id number] [facility] [id number] S [id number] U [id number] Self [id number] Vital Signs ID Date Data Source UNK Name Value Range Interpretation Code Description Data Source(s) Diastolic blood pressure 78 mm[Hg] 78 mm[Hg] eCW1 ([facility]) Systolic blood pressure 134 mm[Hg] 134 mm[Hg] e CW1 ([facility]) Body temperature 97.3 [degF] 97.3 [degF] eCW1 ( [facility]) Respiratory rate 16 /min 16 /min eCW1 ([facility]) Heart rate 96 /min 96 /min eCW1 ([facility]) Body mass index (BMI) [Ratio] 20.31 kg/m2 20.31 kg/m2 eCW1 ([facility]) Body height 58 [in_i] 58 [in_i] eCW1 ([facility]) Body weight 97.2 [lb_av] 97.2 [lb_av] eCW1 ([facility]) Patient Treatment Plan of Care Planned Activity Planned Date Details Description Data Source (s) Baclofen 5 MG Oral Tablet 05/26/2020 12:00:00 AM EDT eCW1 ([facility]) Baclofen 5 MG Oral Tablet 05/26/2020 12:00:00 AM EDT eCW1 ([facility]) Baclofen 5 MG Oral Tablet 05/26/2020 12:00:00 AM EDT eCW1 ([facility]) Baclofen 5 MG Oral Tablet 05/26/2020 12:00:00 AM EDT eCW1 ([facility]) Baclofen 5 MG Oral Tablet 05/26/2020 12:00:00 AM EDT eCW1 ([facility]) Baclofen 5 MG Oral Tablet 05/26/2020 12:00:00 AM EDT eCW1 ([facility]) Baclofen 5 MG Oral Tablet 05/26/2020 12:00:00 AM EDT eCW1 ([facility])
[2020-09-08 22:54] LABS: ALBUMIN 3.1 GM/DL (3.2-5.2); BILIRUBIN,DIRECT 0.2 MG/DL (0.0-0.2); BILIRUBIN,TOTAL 0.6 MG/DL (0.2-1.0); TOTAL PROTEIN 5.9 GM/DL (6.4-8.2)
[2020-09-08 23:09] VITALS: BP 118/58
== END 2020-09-08 23:19 | disposition home or self-care (01) ==
LOC: M ED 19:39
DX: O99.891 Other specified diseases and conditions complicating pregnancy (principal); R10.2 Pelvic and perineal pain; Z3A.16 16 weeks gestation of pregnancy; Z79.899 Other long term (current) drug therapy

== ENCOUNTER → 2020-09-09 | Outpatient (CLI) | payer OTHER ==
[~2020-09-09] MED LIST changes: +QUET1TAB7; -QUET25TA3; +ZOFR4TAB16 PO
--- NOTE | 2020-09-12 23:14 | ECWPNPC ---
PATIENT NAME: MINERVA CONLEY : 1995 GENDER: FEMALE VISIT DATE: 09/09/2020 DISCHARGE DATE: 09/09/20 1014 VISIT LOCKED DATE TIME: PHYSICIAN: EVERTON ZARAGOZA RESOURCE: EVERTON ZARAGOZA REASON FOR APPOINTMENT 1. 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 DISPOSITION & COMMUNICATION ELECTRONICALLY SIGNED BY JORGE L BHARDWAJ ON 09/12/2020 AT 09:23 AM EST DISCLAIMER : THIS IS A VISIT SUMMARY EXTRACTED FROM THE [employer]ICALWORKS CHART. IT IS NOT A COPY OF THE [employer] PROGRESS NOTE. [facility]
== END ==
LOC: M PAIN 09:30
PROVIDERS: ATTEND Family Medicine
DX: Z79.891 Long term (current) use of opiate analgesic (principal)

== ENCOUNTER 2020-09-23 17:00 | Emergency (ER) | payer OTHER ==
[~2020-09-23] VITALS: Ht 147.3 cm; Wt 47.5 kg
[2020-09-23 17:01] VITALS: BP 114/65
--- OUTSIDE RECORDS SUMMARY | 2020-09-23 18:13 | CCD | Continuity of Care Document ---
Author Author Leanne SANDERS [place] [address] Phone [phone] Care Team Providers Care Informatics Coordinator Name Role Phone Jose Alfredo Monique [facility] [phone] Problems Description No Information Available Social History Type Date Description Comments Sex Unknown Allergies, Adverse Reactions, Alerts Description No Information Available Medications Description No Information Available Immunizations Description No Information Available Vital Signs Description No Information Available Results Description No Information Available Procedures Description No Information Available Medical Devices Description No Information Available Encounters Description No Information Available Assessments Description No Information Available Plan of Treatment No Information Available Functional Status Description No Information Available Mental Status Description No Information Available Referrals Description No Information Available
--- OUTSIDE RECORDS SUMMARY | 2020-09-23 18:13 | CCD ---
Author Author [facility] Organization [facility] Address Unknown Phone Unavailable Care Team Providers Care Success Coach Name Role Phone Elder Lu Unavailable PROBLEMS No Information ALLERGIES No Known Allergies ENCOUNTERS from 1994 to 2020-09-18 Encounter Location Date Provider Diagnosis [facility] Clinic [address] [place] [phone] Aug, Elder Lu IMMUNIZATIONS No Information SOCIAL [...] 50 MG 1 tablet as needed Orally fo ur times daily as needed for 30 days Active Hydrocodone-Acetaminophen 7.5-325 MG 1 tablet as needed Orally ever y 6 hrs Active Baclofen 5 MG 1 tablet with food or milk O rally Three times a day PRN for 30 days May, Active Hydrocodone-Acetaminophen 5-325 MG 1 tablet as needed Orally every 6 hrs Active PROCEDURES No Information RESULTS No Results REASON FOR VISIT Tramadol Refill MEDICAL (GENERAL) HISTORY Type Description Date Surgical History appendectomy Hospitalization History sepsis kidney infection, irr egular heart rate with low potassium. 02/2020 Goals Section No Information Health Concerns No Information MEDICAL EQUIPMENT No Information MENTAL STATUS No Information FUNCTIONAL STATUS No Information ASSESSMENTS No Information PLAN OF TREATMENT Medication Medication Name Sig Start Date Stop Date Tramadol HCl 50 MG 1 tablet as needed Orally fo ur times daily as needed for 30 days Baclofen 5 MG 1 tablet with food or milk O rally Three times a day PRN for 30 days May, Next Appt Details Provider Name:Elder Lu, 2020-10-27 09:15:00 AM, [address] [place], [address], Insurance Providers Payer Name Payer Address Payer Phone Insured Name Patient Relati onship to Insured Coverage Start Date Coverage End Date [facility] [address] [place] [address] MINERVA CONLEY self
--- OUTSIDE RECORDS SUMMARY | 2020-09-23 18:13 | CCD ---
Author Author [employer] [facility] [employer] Organization [employer] [facility] Address Unknown Phone Unavailable Care Team Providers Care Acid Cutter Name Role Phone Elder Lu Unavailable PROBLEMS No Information ALLERGIES No Known Allergies ENCOUNTERS from 1994 to 2020-09-09 Encounter Location Date Provider Diagnosis [facility] [address] [place] [phone] Aug, Elder Lu IMMUNIZATIONS No Information SOCIAL [...] Information RESULTS No Results REASON FOR VISIT NURSE CALL-MEDICATION QUESTION MEDICAL (GENERAL) HISTORY Type Description Date Surgical [...] Provider Name:Elder Lu, 2020-10-27 09:15:00 AM, [address] [place], [address], Insurance Providers Payer Name Payer Address Payer Phone Insured Name Patient Relati onship to Insured Coverage Start Date Coverage End Date [facility] [employer] [address] [place] [address] [place]ERVA [place]LEY self
--- OUTSIDE RECORDS SUMMARY | 2020-09-23 18:13 | CCD | Continuity of Care Document ---
Author Author TOMMY Leanne Hank Organization Unknown Address [address] [address] Phone [phone] Care Team Providers Care Embedded Linux Developer Name Role Phone Jose Alfredo Monique [facility] [phone] Problems Description No Information Available Social History Type Date Description Comments Sex Unknown Allergies, Adverse Reactions, Alerts Description No Information Available Medications Description No Information Available Immunizations Description No Information Available Vital Signs Description No Information Available Results Description No Information Available Procedures Date Code Description Status 09/15/2020 87978 MRI Spine Lumbar W/O Contrast Co mpleted 09/15/2020 26810 MRI Spine Lumbar W/O Contrast Co mpleted 09/15/2020 47830 MRI Spine Cervical W/O Contrast Completed 09/15/2020 29599 MRI Spine Cervical W/O Contrast Completed Medical Devices Description No Information Available Encounters Description No Information Available Assessments Date Code Description Provider 09/15/2020 M54.2 Cervicalgia Jd Rodriguez 09/15/2020 M54.2 Cervicalgia MRI Plan of Treatment No Information Available Functional Status Description No Information Available Mental Status Description No Information Available Referrals Refer to Reason for Referral Status Appt Date Created
--- OUTSIDE RECORDS SUMMARY | 2020-09-23 18:48 | CCD | Continuity of Care Document ---
Author Author Leanne SANDERS Organization [place] [address] Phone [phone] Care Team Providers Care Labeling Associate Name Role Phone Jose Alfredo Monique [facility] [phone] Problems Description No Information Available Social History [...]
--- OUTSIDE RECORDS SUMMARY | 2020-09-23 18:48 | CCD ---
Author Author [facility] Organization [facility] Address Unknown Phone Unavailable Care Team Providers Care Revenue Cycle Analyst Name Role Phone Rodríguez MCCARTHY Unavailable Unavailable Bon PRINCE MD Unavailable Unavailable Bon PRINCE MD Unavailable Unavailable Bon PRINCE MD Unavailable Unavailable Bon PRINCE MD Unavailable Unavailable Bon PRINCE MD Unavailable Unavailable Bon PRINCE MD Unavailable Unavailable Bon PRINCE MD Unavailable Unavailable Bon PRINCE MD Unavailable Unavailable Bon PRINCE MD Unavailable Unavailable Bon PRINCE MD Unavailable Unavailable Bon PRINCE MD Unavailable Unavailable Bon PRINCE MD Unavailable Unavailable Bon PRINCE MD Unavailable Unavailable Bon PRINCE MD Unavailable Unavailable Bon PRINCE MD Unavailable Unavailable Bon PRINCE MD Unavailable Unavailable Bon PRINCE MD Unavailable Unavailable Bon PRINCE MD Unavailable Unavailable Bon PRINCE MD Unavailable Unavailable Bon PRINCE MD Unavailable Unavailable Bon PRINCE MD Unavailable Unavailable Bon PRINCE MD Unavailable Unavailable Bon PRINCE MD Unavailable Unavailable Bon PRINCE MD Unavailable Unavailable Bon PRINCE MD Unavailable Unavailable Bon PRINCE MD Unavailable Unavailable Bon PRINCE MD Unavailable Unavailable Bon PRINCE MD Unavailable Unavailable Bon PRINCE MD Unavailable Unavailable Bon PRINCE MD Unavailable Unavailable Bon PRINCE MD Unavailable Unavailable Bon PRINCE MD Unavailable Unavailable Bon PRINCE MD Unavailable Unavailable Bon PRINCE MD Unavailable Unavailable Bon PRINCE MD Unavailable Unavailable Bon PRINCE MD Unavailable Unavailable Bon PRINCE MD Unavailable Unavailable Bon PRINCE MD Unavailable Unavailable Bon PRINCE MD Unavailable Unavailable Bon PRINCE MD Unavailable Unavailable SURESH, K ALEJANDRA MD Unavailable Unavailable SURESH, K ALEJANDRA MD Unavailable Unavailable SURESH, K ALEJANDRA MD Unavailable Unavailable SURESH, K ALEJANDRA MD Unavailable Unavailable SURESH, K ALEJANDRA MD Unavailable Unavailable SURESH, K ALEJANDRA MD Unavailable Unavailable SURESH, K ALEJANDRA MD Unavailable Unavailable SURESH, K ALEJANDRA MD Unavailable Unavailable SURESH, K ALEJANDRA MD Unavailable Unavailable SURESH, K ALEJANDRA MD Unavailable Unavailable SURESH, K ALEJANDRA MD Unavailable Unavailable SURESH, K ALEJANDRA MD Unavailable Unavailable SURESH, K ALEJANDRA MD Unavailable Unavailable SURESH, K ALEJANDRA MD Unavailable Unavailable SANDRA FLOYD Unavailable Unavailable DELL AWAD ALIZA Unavailable Unavailable Re-disclosure Warning The records that [...] is protected by Article 27-F of the [facility] Public Health law. If you continue you may have access to information: Regarding HIV / AIDS; Provided by facilities licensed or operated by the [facility] Office of Mental Health; or Provided by the [facility] Office for People With Developmental Disabilities. If such information is present, then the following [facility] mandated warning applies: This information has [...] law may result in a fine or detention sentence or both. A general authorization for the release of medical or other information is NOT sufficient authorization for further disc losure. Allergies and Adverse Reactions Type Description Substance Reaction Status Data Source(s ) Drug Class NO KNOWN ALLERGIES NO KNOWN ALLERGIES [facility] Encounters Encounter Providers Location Date Indications Data Source(s ) Outpatient Attender: ALEJANDRA SURESH MDReferrer: ALIZA ROCKWELL [id number] 09/21/2020 12:00:00 AM EST - 09/21/2020 04:23:29 PM [facility] Outpatient Attender: SANDRA FLOYDReferrer: ALIZA AWAD 09/21/2020 12:00:00 AM EST Chronic pain due to trauma [facility] Chronic pain due to trauma Outpatient Attender: JONNY MCCARTHYReferrer: ALIZA AWAD 09/21/2020 12:00:00 AM [facility] Outpatient Referrer: ALIZA AWAD 09/21/2020 12:00:00 AM [facility] [place] [address] [facility] [address] 09/14/2020 12:00:00 AM EST eCW1 ([facility]) [place] [address] [facility] [place] [address] 09/09/2020 12:00:00 AM EST eCW1 ([facility]) [place] [address] [facility] [place] [address] 09/08/2020 12:00:00 AM EST eCW1 ([facility]) [place] [address] [facility] [place] [address] 09/06/2020 12:00:00 AM EST eCW1 ([facility]) [place] [address] [facility] [place] [address] 09/06/2020 12:00:00 AM EST eCW1 ([facility]) [place] [address] [facility] [place] [address] 07/08/2020 12:00:00 AM EST eCW1 ([facility]) Unknown [address] [facility] [place] [address] 07/04/2020 12:00:00 AM EST eCW1 ([facility]) Unknown [address] [facility] [place] [address] 06/29/2020 12:00:00 AM EST eCW1 ([facility]) [place] [address] [facility] [address] 06/14/2020 12:00:00 AM EDT eCW1 ([facility]) [place] [address] [facility] [address] 05/30/2020 12:00:00 AM EDT eCW1 ([facility]) [place] [address] [facility] [address] 05/26/2020 12:00:00 AM EDT eCW1 ([facility]) Medications Medication Brand Name Start Date Product Form Dose Route Admi nistrative Instructions Pharmacy Instructions Status Indications Reaction Description Data Source(s) Baclofen 5 MG Oral Tablet Baclofen 5 MG 05/26/2020 12:00:00 AM EDT 1.0 {tablet_with_food_or_milk} active Baclo fen 5 MG eCW1 ([facility]) Baclofen 5 MG Oral Tablet Baclofen 5 MG 05/26/2020 12:00:00 AM EDT 1.0 {tablet_with_food_or_milk} active Baclo fen 5 MG eCW1 ([facility]) Baclofen 5 MG Oral Tablet Baclofen 5 MG 05/26/2020 12:00:00 AM EDT 1.0 {tablet_with_food_or_milk} active Baclo fen 5 MG eCW1 ([facility]) Baclofen 5 MG Oral Tablet Baclofen 5 MG 05/26/2020 12:00:00 AM EDT 1.0 {tablet_with_food_or_milk} active Baclo fen 5 MG eCW1 ([facility]) Baclofen 5 MG Oral Tablet Baclofen 5 MG 05/26/2020 12:00:00 AM EDT 1.0 {tablet_with_food_or_milk} active Baclo fen 5 MG eCW1 ([facility]) Baclofen 5 MG Oral Tablet Baclofen 5 MG 05/26/2020 12:00:00 AM EDT 1.0 {tablet_with_food_or_milk} active Baclo fen 5 MG eCW1 ([facility]) Baclofen 5 MG Oral Tablet Baclofen 5 MG 05/26/2020 12:00:00 AM EDT 1.0 {tablet_with_food_or_milk} active Baclo fen 5 MG eCW1 ([facility]) Baclofen 5 MG Oral Tablet Baclofen 5 MG 05/26/2020 12:00:00 AM EDT 1.0 {tablet_with_food_or_milk} active Baclo fen 5 MG eCW1 ([facility]) Baclofen 5 MG Oral Tablet Baclofen 5 MG 05/26/2020 12:00:00 AM EDT 1.0 {tablet_with_food_or_milk} active Baclo fen 5 MG eCW1 ([facility]) Baclofen 5 MG Oral Tablet Baclofen 5 MG 05/26/2020 12:00:00 AM EDT 1.0 {tablet_with_food_or_milk} active Baclo fen 5 MG eCW1 ([facility]) Baclofen 5 MG Oral Tablet Baclofen 5 MG 05/26/2020 12:00:00 AM EDT 1.0 {tablet_with_food_or_milk} active Baclo fen 5 MG eCW1 ([facility]) Insurance Providers Payer name Policy type / Coverage type Policy ID Covered democrat ID Covered democrat's relationship to webster Policy Webster Plan Information [facility] [id number] SP [id number] U [id number] Self [id number] [facility] [id number] S [id number] Problems, Conditions, and Diagnoses Code Display Name Description Problem Type Effective Dates Data Source(s) G89.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 Diagnosis 09/21/2020 12:48:04 PM [facility] Surgeries/Procedures Procedure Description Date Indications Data Source(s) MRI SPINAL CANAL CERVICAL W/O CONTRAST MATRL 1 12:00:00 AM EST MEDENT ([facility], ) MRI SPINAL CANAL CERVICAL W/O CONTRAST MATRL 1 12:00:00 AM EST [facility] ([facility], ) MRI SPINAL CANAL LUMBAR W/O CONTRAST MATERIAL 09/15/19 21 12:00:00 AM EST [facility] ([facility], ) MRI SPINAL CANAL LUMBAR W/O CONTRAST MATERIAL 09/15/19 21 12:00:00 AM EST [facility]ENT ([facility]) Results ID Date Data Source [id number] 09/22/2020 11:06:13 AM EST [facility] Name Value Range Interpretation Code Description Data Lo rce(s) Supporting Document(s) Progress Note [facility] WHNURh7zGpMEXsEh47/IXElyCOPry8EuMUgfKNi6LCbvGECoE7MeRMK3pN2gXYI0LIlTKkCtPvDmNXA2 lbm FmYaxHDlIkTWBeAwgAUwVcIBcxRdrcsXKkQE2SkSH6WLAyY72xSZTsAWEuI6KlUQP6SHS+Ep3IKPGlyJ KaLQ4TBrgH3D8uz2xXSI0tCK/DBvlQPhrKvLJggMbTQpeRG2qvm6BsUOtfNtZACmPrAZJq8/ys/sLgsh W7MqbllLYXqenjI8rVLo3np4AbQESr/azIyOfF5rcB /H/6i9ktYB+REYMUNDO/4VXNND7pnv7f56tqybujVG8O49i8J/fMPeqdh+6imnjoj3uTaxVQHG7phizpN2/+TZ [file] ICAgICAgICAgICAgICAgICAgICAgICAgICAgICAgICAgICAgICAgICAgICAgICAgICAgICAgICAgICAg ICAgICAgICAgICAgICAgICANCiAgICAgICAgICAgIC AgICAgICAgICAgICAgICAgICAgICAgICAgICAgICAgICAgICAgICAgICAgICAgICAgICAgICAgICAgIC AgICAgICAgICAgICAgICAgICAgICAgICAgICANCiAgICAgICAgICAgICAgICAgICAgICAgICAgICAgIC AgICAgICAgICAgICAgICAgICAgICAgICAgICAgICAg ICAgICAgICAgICAgICAgICAgICAgICAgICAgICAgICAgICAgICANCiAgICAgICAgICAgICAgICAgICAg ICAgICAgICAgICAgICAgICAgICAgICAgICAgICAgICAgICAgICAgICAgICAgICAgICAgICAgICAgICAg ICAgICAgICAgICAgICAgICAgICANCiAgICAgICAgIC AgICAgICAgICAgICAgICAgICAgICAgICAgICAgICAgICAgICAgICAgICAgICAgICAgICAgICAgICAgIC AgICAgICAgICAgICAgICAgICAgICAgICAgICAgICANCiAgICAgICAgICAgICAgICAgICAgICAgICAgIC AgICAgICAgICAgICAgICAgICAgICAgICAgICAgICAg ICAgICAgICAgICAgICAgICAgICAgICAgICAgICAgICAgICAgICAgICANCiAgICAgICAgICAgICAgICAg ICAgICAgICAgICAgICAgICAgICAgICAgICAgICAgICAgICAgICAgICAgICAgICAgICAgICAgICAgICAg ICAgICAgICAgICAgICAgICAgICAgICANCiAgICAgIC AgICAgICAgICAgICAgICAgICAgICAgICAgICAgICAgICAgICAgICAgICAgICAgICAgICAgICAgICAgIC AgICAgICAgICAgICAgICAgICAgICAgICAgICAgICAgICANCiAgICAgICAgICAgICAgICAgICAgICAgIC AgICAgICAgICAgICAgICAgICAgICAgICAgICAgICAg ICAgICAgICAgICAgICAgICAgICAgICAgICAgICAgICAgICAgICAgICAgICANCiAgICAgICAgICAgICAg ICAgICAgICAgICAgICAgICAgICAgICAgICAgICAgICAgICAgICAgICAgICAgICAgICAgICAgICAgICAg ICAgICAgICAgICAgICAgICAgICAgICAgICANCjw/eH OzH1avbYUwnsX5Y5jpDy1POt5VIW1qj5SyZQVaBVtdivQcWehWWgXsRWCaIfbEPyu3BQbxAF2TbLYaL3 DzI0DpXBebSW7JLNRtIUNnvNJkLVGgGRVjQeW9WLLcDDccOA1KkKLtATtsKPSdPTEeLsEzDYRcPZ9MHA RrA790raXyHy5PUf6WUhKqIS3jvc4OVlAcIXJuRatH Czy9KVmrRG7OqEYbiMGvJpLyZFLOGyJaD4swd7IeXwQmDOZSEAeyIS3Tj9EtyYWmDHv+Sr3LOR4cn8Qv BYeaEpPyOK8mss3LYIcYWsVeP8ZpqVofNFAev5fsSBEdAC7umUIbCOU8JRCvThJcdOZRSOAhvPRfcb7i instOEUdRSQvCZ7tUs1sZKRhIXAsPeVjKESSBR5OUS IuDDUwgZLuBEOsUGBFLX0KQOowFPC7IVAcxoTsrXVlNAtjDJ1UZCBvpmFnKtGnATWKKEy+Ir3WAA4rf0 VbTAveCjBtHD0qxs6RDFaAFdAjB1Z7zKDqA5P4FXwwFq9TOYYdNALsSLwqFYELRJctVG6QBB4nvsQ6WJ 4HsVAxUOJvTKHozQUjKYg1V42jeBDkNMfiCV9AOUW+ Villa+Ns3MODMpJYKkIYLnIdUaVTAZKsXcR8HkC3RHf1DvM7HhHZ47yRysutHlVVtuFX4ARK2bYEDtJCPP OU9ZaBYgoK6yaiSxZLOrHHAKCpApW10nnPOlLOCaFABcGJDoTa3FUQMzW7YvcbCtgEmnbwXmMZFgVBRM VG9IYIfjezYqwTUlkFyyQQ73iVgeIX2GQc8WXoBgOS 4ybk0RpGIvVa6JMZAuET2KGHJtGMPrPLYhGXY2SSGpVpCgTRweZUMqEQDiYRX8GAJvGTZkFM5ONcYzQS SzRXF9VXkaUNUbKEBoqe5HATFjBMY0JcDwIhOsPHQiNEZdTIcdWKPeWDCiIGW8OACoYFVwTN7TTxJjZW BaQGP4PDGmJBSyFZQpxz6VHFKoAGKbCoi5SNSqYMWa VHKgSUehAKCoMSB7RBL6YXLiRNRqOL4MFaHtYKBnOGtsZRbrRZJjKZMrdh3EINFjLWPnWoh1BVUzNXFo ALWwBEoyPUBaHNY4ZOi5IBXxJCQbXH8ZGzMsYLKfKMseEXUcNSIrBUUjtm6XFOMfNQCuFBUwFNGqUBMy UYHmWBhnPVZjBYC5KLY8PPWbFDZbUE0HGpKxSCZjSN v7XVMqBQJpCZXvvr2FOQVaINFfFLibHOIgKDTmONNjLMsqZEXsUPH5HYXlZIPuLEYpQV8ZZdJpABYoJh n9HWRuTBAfGARfir2ZJSOeLYR2ZVJvWLAlXFZvIAJzAXjlOIIrJIBmLYX9WSRcKQEyBC3VPbTmRUJxME F5GfkaVWRpHAVexi9LNXHiVFT1AtUkLOWaYSPbADFa WDpnZYAmXDTnQHdlGKOeZLMnLC2GClWhEPZpSHY2BdIvJBUpIKBjst8XjMSziXspma8MYNpXMq6RhPuw BSC6DAxbRm6nqRGaBhMiYCEQRs0JsjNjCESxTCAWUEhhJPVmRGTkPLKdOBUlERBmOPW2UaIdEaD4YFE5 UEYwRIMcTCN9EbN7XDDzKQNqH5ErZnK3Cer1T3F5AJ mwPKE1FITfQ0W0ZHk+PK6dTEb+Nu7Ke1TnvhF3zxWtJWi7Lwz1QB6SQSLEV4SVVs== Procedure Vital Signs ID Date Data Source UNK Name Value Range Interpretation Code Description Data Source(s) Diastolic blood pressure 78 mm[Hg] 78 mm[Hg] eCW1 ([facility]) Systolic blood pressure 134 mm[Hg] 134 mm[Hg] e CW1 ([facility]) Body temperature 97.3 [degF] 97.3 [degF] eCW1 ( [facility]) Respiratory rate 16 /min 16 /min [facility] Heart rate 96 /min 96 /min eCW1 ([facility]) Body mass index (BMI) [Ratio] 20.31 kg/m2 20.31 kg/m2 eCW1 ([facility]) Body height 58 [in_i] 58 [in_i] eCW1 ([facility]) Body weight 97.2 [lb_av] 97.2 [lb_av] eCW1 ([facility]) ID Date Data Source [id number] 09/22/2020 11:06:13 AM [facility] Name Value Range Interpretation Code Description Data Source(s) WEIGHT RECORDED 105 lb 105 lb [facility] Body height Measured 58 in 58 in [facility] Patient Treatment Plan of Care Planned Activity Planned Date Details Description Data Source (s) Baclofen 5 MG Oral Tablet 05/26/2020 12:00:00 AM EDT eCW1 ([facility]) Baclofen 5 MG Oral Tablet 05/26/2020 12:00:00 AM EDT eCW1 ([facility]) Baclofen 5 MG Oral Tablet 05/26/2020 12:00:00 AM EDT eCW1 ([facility]) Baclofen 5 MG Oral Tablet 05/26/2020 12:00:00 AM EDT eCW1 ([facility]) Baclofen 5 MG Oral Tablet 05/26/2020 12:00:00 AM EDT eCW1 ([facility]) Baclofen 5 MG Oral Tablet 05/26/2020 12:00:00 AM EDT eCW1 ([facility]) Baclofen 5 MG Oral Tablet 05/26/2020 12:00:00 AM EDT eCW1 ([facility]) Baclofen 5 MG Oral Tablet 05/26/2020 12:00:00 AM EDT eCW1 ([facility]) Baclofen 5 MG Oral Tablet 05/26/2020 12:00:00 AM EDT eCW1 ([facility]) Baclofen 5 MG Oral Tablet 05/26/2020 12:00:00 AM EDT eCW1 ([facility]) Baclofen 5 MG Oral Tablet 05/26/2020 12:00:00 AM EDT eCW1 ([facility])
--- OUTSIDE RECORDS SUMMARY | 2020-09-23 18:48 | CCD ---
Author Author [employer] Organization [facility] Address Unknown Phone Unavailable Care Team Providers Care Paperhanger Assistant Name Role Phone Elder Lu Unavailable PROBLEMS No Information ALLERGIES No Known Allergies ENCOUNTERS from 1994 to 2020-09-08 Encounter Location Date Provider Diagnosis [facility] Clinic [address] [place] [phone] Aug, Elder Lu IMMUNIZATIONS No Information SOCIAL [...] Information RESULTS No Results REASON FOR VISIT No Information MEDICAL (GENERAL) HISTORY Type Description Date Surgical [...] days May, Next Appt Details Provider Name:Elder Lewis Aly, 2020-09-09 09:30:00 AM, [address] [place], [address], Provider Name:Elder Lewis Aly, 2020-10-27 09:15:00 AM, [address] [place], [address], Insurance Providers Payer Name Payer Address Payer Phone Insured Name Patient Relati onship to Insured Coverage Start Date Coverage End Date [facility] [address] [place] [address] [place]A [place] self
--- OUTSIDE RECORDS SUMMARY | 2020-09-23 18:48 | CCD ---
Author Author [employer] Organization [employer] [facility] Address Unknown Phone Unavailable Care Team Providers Care Shipfitter Helper Name Role Phone Elder Lu Unavailable PROBLEMS No Information ALLERGIES No Known Allergies ENCOUNTERS from 1994 to 2020-09-12 Encounter Location Date Provider Diagnosis [facility] Pain Clinic [address] [place] [phone] Aug, Elder Lu correction (current) use of opiate analge sic Z79.891 IMMUNIZATIONS No Information SOCIAL HISTORY Sex Assigned [...] Information RESULTS No Results REASON FOR VISIT UTOX MEDICAL (GENERAL) HISTORY Type Description Date Surgical History appendectomy Hospitalization History sepsis kidney infection, irr egular heart rate with low potassium. 02/2020 Goals Section No Information Health Concerns No Information MEDICAL EQUIPMENT No Information MENTAL STATUS No Information FUNCTIONAL STATUS No Information ASSESSMENTS Encounter Date Diagnosis Assessment Notes Treatment Notes Treatm ent Clinical Notes Aug, correction (current) use of opiate analgesic (ICD -10 - Z79.891) Aug, Other utox collected and narcotic agreement signed today. PLAN OF TREATMENT Medication Medication Name Sig Start Date Stop Date Baclofen 5 MG 1 tablet with food or milk O rally Three times a day PRN for 30 days May, Treatment Notes Test Name Order Date Pain Center Urine Tox (send out) 2020-09-12 Next Appt Details Provider Name:Elder Lu, 2020-10-27 09:15:00 AM, [address] [place] [address], [phone], Insurance Providers Payer Name Payer Address Payer Phone Insured Name Patient Relati onship to Insured Coverage Start Date Coverage End Date [facility] [employer] [address] [place] [id number] [place]ERVA CONLEY self
== END 2020-09-23 20:12 | disposition home or self-care (01) ==
LOC: M ED 17:00
DX: Z20.828 Contact with and (suspected) exposure to other viral communicable diseases (principal); Z3A.18 18 weeks gestation of pregnancy

== ENCOUNTER 2020-10-09 08:25 | Emergency (ER) | payer OTHER ==
[~2020-10-09] VITALS: Ht 147.3 cm; Wt 50.0 kg
[~2020-10-09 08:25] MED LIST changes: -QUET1TAB7; +QUET25TA3
--- OUTSIDE RECORDS SUMMARY | 2020-10-09 08:29 | CCD ---
Author Author [employer] Organization [employer] Address Unknown Phone Unavailable Care Team Providers Care Fire Extinguisher Charger Name Role Phone Elder Lu Unavailable PROBLEMS No Information ALLERGIES No Known Allergies ENCOUNTERS from 1994 to 2020-10-05 Encounter Location Date Provider Diagnosis [facility] Pain Clinic [address] [place] [phone] Sep, Elder Lu IMMUNIZATIONS No Information SOCIAL HISTORY [...] Information RESULTS No Results REASON FOR VISIT SCRIPT MEDICAL (GENERAL) HISTORY Type Description Date Surgical [...] Details Provider Name:Elder Lu, 2020-10-27 09:15:00 AM, [address] [place], [address], Insurance Providers Payer Name Payer Address Payer Phone Insured Name Patient Relati onship to Insured Coverage Start Date Coverage End Date [facility] [employer] [address] [place] [address] [place]ERVA CONLEY self
--- OUTSIDE RECORDS SUMMARY | 2020-10-09 08:29 | CCD ---
Author Author [facility] Organization [facility] Address Unknown Phone Unavailable Care Team Providers Care Lining Repairer Name Role Phone Rodríguez MCCARTHY Unavailable Unavailable [...] is protected by Article 27-F of the [facility] Public Health law. If you continue you may have access to information: Regarding HIV / AIDS; Provided by facilities licensed or operated by the [facility] Office of Mental Health; or Provided by the [facility] Office for People With Developmental Disabilities. If such information is present, then the following [facility] mandated warning applies: This information has been [...] law may result in a fine or penitentiary sentence or both. A general authorization for the release of medical or other information is NOT sufficient authorization for further disc losure. Allergies and Adverse Reactions Type Description Substance Reaction Status Data Source(s ) Drug Class NO KNOWN ALLERGIES NO KNOWN ALLERGIES [facility] Encounters Encounter Providers Location Date Indications Data Source(s ) Unknown [address] [facility] [place] [address] 10/05/2020 12:00:00 AM EST eCW1 ([facility]) Outpatient Attender: ALEJANDRA PRINCE MDReferrer: ALIZA ROCKWELL [id number] 09/21/2020 12:00:00 AM EST - 09/21/2020 04:23:29 PM [facility] Outpatient Attender: SANDRA FLOYDReferrer: ALIZA AWAD 09/21/2020 12:00:00 AM EST Chronic pain due to trauma [facility] Chronic pain due to trauma Outpatient Attender: JONNY MCCARTHYReferrer: ALIZA AWAD 09/21/2020 12:00:00 AM [facility] Outpatient Referrer: ALIZA AWAD 09/21/2020 12:00:[address] [facility] Unknown [address] [facility] [place] [address] 09/14/2020 12:00:00 AM EST eCW1 ([facility]) Outpatient [address] [facility] [place] [address] 09/09/2020 12:00:00 AM EST eCW1 ([facility]) Unknown [address] [facility] [place] [address] 09/08/2020 12:00:00 AM EST eCW1 ([facility]) [place] [address] [facility] [place] [address] 09/06/2020 12:00:00 AM EST eCW1 ([facility]) Unknown [address] [facility] [place] [address] 09/06/2020 12:00:00 AM EST eCW1 ([facility]) Unknown [address] [facility] [place] [address] 07/08/2020 12:00:00 AM EST eCW1 ([facility]) Unknown [address] [facility] [place] [address] 07/04/2020 12:00:00 AM EST eCW1 ([facility]) Unknown [address] [facility] [place] [address] 06/29/2020 12:00:00 AM EST eCW1 ([facility]) Unknown [address] [facility] [place] [address] 06/14/2020 12:00:00 AM EDT eCW1 ([facility]) Unknown [address] [facility] [place] [address] 05/30/2020 12:00:00 AM EDT eCW1 ([facility]) Outpatient [address] [facility] [place] [address] 05/26/2020 12:00:00 AM EDT eCW1 ([facility]) Medications Medication Brand Name Start Date Product Form Dose Route Admi nistrative Instructions Pharmacy Instructions Status Indications Reaction Description Data Source(s) Baclofen 5 MG Oral Tablet Baclofen 5 MG 05/26/2020 12:00:00 AM EDT 1.0 {tablet_with_food_or_milk} active Baclo fen 5 MG eCW1 ([facility]) Baclofen 5 MG Oral Tablet Baclofen 5 MG 05/26/2020 12:00:00 AM EDT 1.0 {tablet_with_food_or_milk} active Baclo fen 5 MG eCW1 ([facility]) Baclofen 5 MG Oral Tablet Baclofen 5 MG 05/26/2020 12:00:00 AM EDT 1.0 {tablet_with_food_or_milk} active Baclo fen 5 MG eCW1 ([facility]) Baclofen 5 MG Oral Tablet Baclofen 5 MG 05/26/2020 12:00:00 AM EDT 1.0 {tablet_with_food_or_milk} active Baclo fen 5 MG eCW1 ([facility]) Baclofen 5 MG Oral Tablet Baclofen 5 MG 05/26/2020 12:00:00 AM EDT 1.0 {tablet_with_food_or_milk} active Baclo fen 5 MG eCW1 ([facility]) Baclofen 5 MG Oral Tablet Baclofen 5 MG 05/26/2020 12:00:00 AM EDT 1.0 {tablet_with_food_or_milk} active Baclo fen 5 MG eCW1 ([facility]) Baclofen 5 MG Oral Tablet Baclofen 5 MG 05/26/2020 12:00:00 AM EDT 1.0 {tablet_with_food_or_milk} active Baclo fen 5 MG eCW1 ([facility]) Baclofen 5 MG Oral Tablet Baclofen 5 MG 05/26/2020 12:00:00 AM EDT 1.0 {tablet_with_food_or_milk} active Baclo fen 5 MG eCW1 ([facility]) Baclofen 5 MG Oral Tablet Baclofen 5 MG 05/26/2020 12:00:00 AM EDT 1.0 {tablet_with_food_or_milk} active Baclo fen 5 MG eCW1 ([facility]) Baclofen 5 MG Oral Tablet Baclofen 5 MG 05/26/2020 12:00:00 AM EDT 1.0 {tablet_with_food_or_milk} active Baclo fen 5 MG eCW1 ([facility]) Baclofen 5 MG Oral Tablet Baclofen 5 MG 05/26/2020 12:00:00 AM EDT 1.0 {tablet_with_food_or_milk} active Baclo fen 5 MG eCW1 ([facility]) Baclofen 5 MG Oral Tablet Baclofen 5 MG 05/26/2020 12:00:00 AM EDT 1.0 {tablet_with_food_or_milk} active Baclo fen 5 MG eCW1 ([facility]) Insurance Providers Payer name Policy type / Coverage type Policy ID Covered green party ID Covered green party's relationship to webster Policy Webster Plan Information [facility] HUMANA [id number] SP [id number] U [id number] Self [id number] HUMANA [facility] O [id number] S [id number] Problems, Conditions, and Diagnoses Code Display Name Description Problem Type Effective Dates Data Source(s) G89.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 Diagnosis 09/21/2020 12:48:04 PM [facility] Surgeries/Procedures Procedure Description Date Indications Data Source(s) MRI SPINAL CANAL CERVICAL W/O CONTRAST MATRL 12:00:00 AM EST MEDENT ([facility], ) MRI SPINAL CANAL CERVICAL W/O CONTRAST MATRL 12:00:00 AM EST MEDENT ([facility], ) MRI SPINAL CANAL LUMBAR W/O CONTRAST MATERIAL 09/15/19 12:00:00 AM EST MEDENT ([facility], ) MRI SPINAL CANAL LUMBAR W/O CONTRAST MATERIAL 09/15/19 12:00:00 AM EST MEDENT ([facility], ) Results ID Date Data Source [id number] 09/22/2020 11:06:13 AM EST [facility] Name Value Range Interpretation Code Description Data Lo rce(s) Supporting Document(s) Progress Note [facility] THQSMh6lIrMCMcVa01/ZWSutDBNza3SlIOyiSLr9CIxoFKAtU5JpUHB4zS3kSXM3MRkHDwCdAnNiDOJ0 lbm JcOztZKzWqVEYyHlvWVqKjCTwcEoqyjNSeAR8BjXC6YOVtS04wAPRxESKhM5NoDBA8FLT+Js8KLLFpfD DhJZ7JQguX0D9ey1rLUL3mEF/NJvzNVgeKuPXmnIiFHbaEJ0xgv1HcIRboIaDLMaGpTDAg4/ys/sLgsh Y1DqmgpERWbqhiD6rTFd7tp3IqBJMr/ytNmUyP2ocZ /H/2m3reGC+REYMUNDO/3XMCMS2kuu1l66uqzyabSC7K40h1C/fMPeqdh+3tvuwrf0nFsfZICF6xsobgG9/+TZ [file] ICAgICAgICAgICAgICAgICAgICAgICAgICAgICAgICAgICAgICAgICAgICAgICAgICAgICAgICAgICAg ICAgICAgICAgICAgICAgICANCiAgICAgICAgICAgIC AgICAgICAgICAgICAgICAgICAgICAgICAgICAgICAgICAgICAgICAgICAgICAgICAgICAgICAgICAgIC AgICAgICAgICAgICAgICAgICAgICAgICAgICANCiAgICAgICAgICAgICAgICAgICAgICAgICAgICAgIC AgICAgICAgICAgICAgICAgICAgICAgICAgICAgICAg ICAgICAgICAgICAgICAgICAgICAgICAgICAgICAgICAgICAgICANCiAgICAgICAgICAgICAgICAgICAg ICAgICAgICAgICAgICAgICAgICAgICAgICAgICAgICAgICAgICAgICAgICAgICAgICAgICAgICAgICAg ICAgICAgICAgICAgICAgICAgICANCiAgICAgICAgIC AgICAgICAgICAgICAgICAgICAgICAgICAgICAgICAgICAgICAgICAgICAgICAgICAgICAgICAgICAgIC AgICAgICAgICAgICAgICAgICAgICAgICAgICAgICANCiAgICAgICAgICAgICAgICAgICAgICAgICAgIC AgICAgICAgICAgICAgICAgICAgICAgICAgICAgICAg ICAgICAgICAgICAgICAgICAgICAgICAgICAgICAgICAgICAgICAgICANCiAgICAgICAgICAgICAgICAg ICAgICAgICAgICAgICAgICAgICAgICAgICAgICAgICAgICAgICAgICAgICAgICAgICAgICAgICAgICAg ICAgICAgICAgICAgICAgICAgICAgICANCiAgICAgIC AgICAgICAgICAgICAgICAgICAgICAgICAgICAgICAgICAgICAgICAgICAgICAgICAgICAgICAgICAgIC AgICAgICAgICAgICAgICAgICAgICAgICAgICAgICAgICANCiAgICAgICAgICAgICAgICAgICAgICAgIC AgICAgICAgICAgICAgICAgICAgICAgICAgICAgICAg ICAgICAgICAgICAgICAgICAgICAgICAgICAgICAgICAgICAgICAgICAgICANCiAgICAgICAgICAgICAg ICAgICAgICAgICAgICAgICAgICAgICAgICAgICAgICAgICAgICAgICAgICAgICAgICAgICAgICAgICAg ICAgICAgICAgICAgICAgICAgICAgICAgICANCjw/eH JfX5rfjGLldtZ5M2oqEv3NVa6RMS2en5RbXOZyJIijpdMfYxgEUfLlKDJxLxnVZmt6DOgfJW7AaQNpL4 JmZ8RwHTqbOF2ETEHmYWJttZUvJBSjOJYgSsJ3PUNhRObgGM9GbROoLCxyCAOiZHQuRvDkCAItIQ7OFE JvC928thFwYh1ZQn0QZnKaIS6mej8FIzFnYWRwZpqW Hzm3UStsFI3DeZCcrUBkMiWaWLCKKgHrR4val8YlXzMlUORJRMflTQ3Qn4YnqZQuLVp+Jy8JSF6kk6As JHkxCdEbCU0iug1ZYWoHSmSxU7ZmvNnmGGCid5haBDNlBI1bfVVwXXS2AIPnQsAlgISEVYCopQQmjf6a votyDSHzKUDbIG2mOj3wSWRlUENvFrFtKUNBYO4DNL QvZZOnuAHkHMNpCOSMSV9GZSkuPAS8SYWelbAbxGLcHTktXL8GGBAgkgZuJpFzQXHMPLq+Be1VEE1uj9 OcNRbpHlRzHG9sci3QNIxZKaGnA4E5uWPsN5L5PLxgVm6MKQZwNEJfSWvpRMNNIDmeIH9LVF5kqrD1ZD 1ZsGNmASWhCETonAMuXDu7S53weJViOSuvXI5EVRN+ Villa+Aw2CHQQoHRYvQXNaRhPhKKTRMgSjI5HtN5PGz1CaH1RnGL23xGyapnUdTOhrTG0KAX8kKSRxVCAX FV1OnNDrcU4fcpYfTFRaDSVBZvXmD20txWCuRGEtVHMwNZOaVy3EPJAmX8GohnAxfRjulwVwSJOcFRPB IF8ONFvyujRurHZdpOrvIT83kEduNE0PXg5DCiFlHA 0gzd0VnBQrBy4EOJQhIH3GWEGiCGAiOOLzAGP0SHJaZnOjSWciRYDlSHMtGRG5WEBtDAKrVR5FKfIdEF QrTQC3XTwvIYFrPEHfgn5ETQUxTBN9TcAaTrHyLXKzSSGnRVhfJEPkKDEaFAD6UQVwIXEwEZ6HUtJhYQ HoOQI9KQKdPSMaJFAhbd8YAVEpGVJbCze0FEEnXTPs HFDxMJscIXZdUUV0HWN6ATAzLITeAR7LGmFuJLGlIBziEFwoCYKxKANbxp0NQWPaJUMjWey8HYSeBOQz KAKgVCteWSZlEXV5PJy5PTLfQWUlCD6CUcYrETVfHSquQIYtCWDoXORnkn4XCVTbTANgKPEdDWNrELEd DXKgOXgiVJGzTIH6HHE0MZOyEKQmIS0TDcLrTKXmZQ g8JCWzZEKmOEKpgp9AGGRnCIIyYDmyYEFbXBOcMLYvDIuzRDYkBEJ5UTSwMVGrRSTrKD9USjMnHWRoSt r0PWNmGFLoGPWdtf1COKIzCCN6QWIiQHUiTFPcNDOlGQzxDMGkURUeWRQ5HJSaPSJhUC4DXuSxJJLjOF B2AbtpLOAnMQTrxt4AEYLmNBA6HwNhSDZwPRQgNPOk ZNlnIHQrHPCnZIdyHLLmDCRaXN5WRnNhPPNoMZU1AaSyXGYyGBTgew0HeAPvhDetia2YWQwJYc5YfCgw ZAD2EAorUe8gjTReYoWsTCAHJs5FneXbLMSqNHLELWuoUHVlFXTxHMVvMQWoFOLmPXQ4JnEzXyZ0KHG2 PRZdYGAqIOE0RtQ2UNDqZEOdQ8JyNuN7Twr0U9W9AX spOHM4GYBgL0L5BHz+BT3bIHo+Mp2Il2OtoiU6rfTpIGx0Jml0IC8WGQVSM3HYXz== Procedure Vital Signs ID Date Data Source UNK Name Value Range Interpretation Code Description Data Source(s) Diastolic blood pressure 78 mm[Hg] 78 mm[Hg] eCW1 ([facility]) Systolic blood pressure 134 mm[Hg] 134 mm[Hg] e CW1 ([facility]) Body temperature 97.3 [degF] 97.3 [degF] eCW1 ( [facility]) Respiratory rate 16 /min 16 /min eCW1 ([facility]) Heart rate 96 /min 96 /min eCW1 ([facility]) Body mass index (BMI) [Ratio] 20.31 kg/m2 20.31 kg/m2 eCW1 ([facility]) Body height 58 [in_i] 58 [in_i] eCW1 ([facility]) Body weight 97.2 [lb_av] 97.2 [lb_av] eCW1 ([facility]) ID Date Data Source [id number] 09/22/2020 11:06:[address] [facility] Name Value Range Interpretation Code Description Data Source(s) WEIGHT RECORDED 105 lb 105 lb [facility] Body height Measured 58 in 58 in [facility] Patient Treatment Plan of Care Planned Activity Planned Date Details Description Data Source (s) Baclofen 5 MG Oral Tablet 05/26/2020 12:00:00 AM EDT eCW1 ([facility]) Baclofen 5 MG Oral Tablet 05/26/2020 12:00:00 AM EDT eCW1 ([facility]) Baclofen 5 MG Oral Tablet 05/26/2020 12:00:00 AM EDT eCW1 ([facility]) Baclofen 5 MG Oral Tablet 05/26/2020 12:00:00 AM EDT eCW1 ([facility]) Baclofen 5 MG Oral Tablet 05/26/2020 12:00:00 AM EDT eCW1 ([facility]) Baclofen 5 MG Oral Tablet 05/26/2020 12:00:00 AM EDT eCW1 ([facility]) Baclofen 5 MG Oral Tablet 05/26/2020 12:00:00 AM EDT eCW1 ([facility]) Baclofen 5 MG Oral Tablet 05/26/2020 12:00:00 AM EDT eCW1 ([facility]) Baclofen 5 MG Oral Tablet 05/26/2020 12:00:00 AM EDT eCW1 ([facility]) Baclofen 5 MG Oral Tablet 05/26/2020 12:00:00 AM EDT eCW1 ([facility]) Baclofen 5 MG Oral Tablet 05/26/2020 12:00:00 AM EDT eCW1 ([facility]) Baclofen 5 MG Oral Tablet 05/26/2020 12:00:00 AM EDT eCW1 ([facility])
[2020-10-09] MEDS ORDERED: DOCU100C16 (08:40)
[2020-10-09] MEDS ORDERED: VITA50TA7 (08:40)
--- OUTSIDE RECORDS SUMMARY | 2020-10-09 09:01 | CCD ---
Author Author [facility] Organization [facility] Address Unknown Phone Unavailable Care Team Providers Care Router Setter Name Role Phone Rodríguez MCCARTHY Unavailable Unavailable [...] K ALEJANDRA MD Unavailable Unavailable SURESH, K ALEJADNRA MD Unavailable Unavailable SURESH, K ALEJANDRA MD [...] is protected by Article 27-F of the [facility] Public Health law. If you continue you may have access to information: Regarding HIV / AIDS; Provided by facilities licensed or operated by the [facility] Office of Mental Health; or Provided by the [facility] Office for People With Developmental Disabilities. If such information is present, then the following [facility] mandated warning applies: This information has [...] law may result in a fine or group home sentence or both. A general authorization for the release of medical or other information is NOT sufficient authorization for further disc losure. Allergies and Adverse Reactions Type Description Substance Reaction Status Data Source(s ) Drug Class NO KNOWN ALLERGIES NO KNOWN ALLERGIES [facility] Encounters Encounter Providers Location Date Indications Data Source(s ) [place] [address] [address] 10/05/2020 12:00:00 AM EST eCW1 ([facility]) Outpatient Attender: ALEJANDRA PRINCE MDReferrer: ALIZA ROCKWELL [id number] 09/21/2020 12:00:00 AM EST - 09/21/2020 04:23:29 PM [facility] Outpatient Attender: SANDRA FLOYDReferrer: ALIZA AWAD 09/21/2020 12:00:00 AM EST Chronic pain due to trauma [facility] Chronic pain due to trauma Outpatient Attender: JONNY MCCARTHYReferrer: ALIZA AWAD 09/21/2020 12:00:00 AM [facility] Outpatient Referrer: ALIZA AWAD 09/21/2020 12:00:00 AM ES [facility] [place] [address] [address] 09/14/2020 12:00:00 AM EST eCW1 ([facility]) [place]patient [address] [address] 09/09/2020 12:00:00 AM EST eCW1 ([facility]) [place] [address] [address] 09/08/2020 12:00:00 AM EST eCW1 ([facility]) [place] [address] [facility] [place] [address] 09/06/2020 12:00:00 AM EST eCW1 ([facility]) [place] [address] [address] 09/06/2020 12:00:00 AM EST eCW1 ([facility]) [place] [address] [address] 07/08/2020 12:00:00 AM EST eCW1 ([facility]) Unknown [address] [facility] [place] [address] 07/04/2020 12:00:00 AM EST eCW1 ([facility]) [place] [address] [address] 06/29/2020 12:00:00 AM EST eCW1 ([facility]) [place] [address] [address] 06/14/2020 12:00:00 AM EDT eCW1 ([facility]) [place] [address] [address] 05/30/2020 12:00:00 AM EDT eCW1 ([facility]) Outpatient [address] [address] 05/26/2020 12:00:00 AM EDT eCW1 ([facility]) Medications Medication Brand Name Start Date Product Form Dose Route Admi nistrative Instructions Pharmacy Instructions Status Indications Reaction Description Data Source(s) Baclofen 5 MG Oral Tablet Baclofen 5 MG 05/26/2020 12:00:00 AM EDT 1.0 {tablet_with_food_or_milk} active Baclo fen 5 MG eCW1 ([facility]) Baclofen 5 MG Oral Tablet Baclofen 5 MG 05/26/2020 12:00:00 AM EDT 1.0 {tablet_with_food_or_milk} active Baclo fen 5 MG eCW1 ([facility]) Baclofen 5 MG Oral Tablet Baclofen 5 MG 05/26/2020 12:00:00 AM EDT 1.0 {tablet_with_food_or_milk} active Baclo fen 5 MG eCW1 ([facility]) Baclofen 5 MG Oral Tablet Baclofen 5 MG 05/26/2020 12:00:00 AM EDT 1.0 {tablet_with_food_or_milk} active Baclo fen 5 MG eCW1 ([facility]) Baclofen 5 MG Oral Tablet Baclofen 5 MG 05/26/2020 12:00:00 AM EDT 1.0 {tablet_with_food_or_milk} active Baclo fen 5 MG eCW1 ([facility]) Baclofen 5 MG Oral Tablet Baclofen 5 MG 05/26/2020 12:00:00 AM EDT 1.0 {tablet_with_food_or_milk} active Baclo fen 5 MG eCW1 ([facility]) Baclofen 5 MG Oral Tablet Baclofen 5 MG 05/26/2020 12:00:00 AM EDT 1.0 {tablet_with_food_or_milk} active Baclo fen 5 MG eCW1 ([facility]) Baclofen 5 MG Oral Tablet Baclofen 5 MG 05/26/2020 12:00:00 AM EDT 1.0 {tablet_with_food_or_milk} active Baclo fen 5 MG eCW1 ([facility]) Baclofen 5 MG Oral Tablet Baclofen 5 MG 05/26/2020 12:00:00 AM EDT 1.0 {tablet_with_food_or_milk} active Baclo fen 5 MG eCW1 ([facility]) Baclofen 5 MG Oral Tablet Baclofen 5 MG 05/26/2020 12:00:00 AM EDT 1.0 {tablet_with_food_or_milk} active Baclo fen 5 MG eCW1 ([facility]) Baclofen 5 MG Oral Tablet Baclofen 5 MG 05/26/2020 12:00:00 AM EDT 1.0 {tablet_with_food_or_milk} active Baclo fen 5 MG eCW1 ([facility]) Baclofen 5 MG Oral Tablet Baclofen 5 MG 05/26/2020 12:00:00 AM EDT 1.0 {tablet_with_food_or_milk} active Baclo fen 5 MG eCW1 ([facility]) Insurance Providers Payer name Policy type / Coverage type Policy ID Covered alliance party ID Covered alliance party's relationship to webster Policy Webster Plan Information [facility] HUMANA [id number] SP [id number] U [id number] Self [id number] HUMANA [facility] O [id number] S [id number] Problems, Conditions, and Diagnoses Code Display Name Description Problem Type Effective Dates Data Source(s) G89.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 Surgeries/Procedures Procedure Description Date Indications Data Source(s) MRI SPINAL CANAL CERVICAL W/O CONTRAST MATRL 12:00:00 AM EST MEDENT ([facility], ) MRI SPINAL CANAL CERVICAL W/O CONTRAST MATRL 12:00:00 AM EST MEDENT ([facility], ) MRI SPINAL CANAL LUMBAR W/O CONTRAST MATERIAL 09/15/19 12:00:00 AM EST MEDENT ([facility], ) MRI SPINAL CANAL LUMBAR W/O CONTRAST MATERIAL 09/15/19 12:00:00 AM EST MEDENT ([facility], ) Results ID Date Data Source [id number] 09/22/2020 11:06:13 AM EST [facility] Name Value Range Interpretation Code Description Data Lo rce(s) Supporting Document(s) Progress Note [facility] VCOPUe9fDpUZDtXq80/PUBsoVVWkf2NrDJqjNTh1ZGmaOIVaE2TbLDX3aC1kPGJ5APiYTiMrCoBsCBR8 lbm NaChfQFvMeDVTiFmvAKzLmSWgwLtmhkZZjRV9OyIJ0DVQtM22lXICzFEKdY8EpPTG7NGY+Eq5SNTTtkY QkDP3YVdcO4T6aq7hTDK0qBW/SNbyMMykJnFDrkHwMKwgHP8dnv5HjAFetWsOILiNcFJBw4/ys/sLgsh P1VxtqoJJFxulaV5jVGf9my9GpSUAt/trHnItY7edN /H/1h3nnTI+REYMUNDO/5JHHNJ2nnh1k91rzedntCT7O62u3L/fMPeqdh+9poeawx2zWpfCXLZ6fhllyF6/+TZ [file] ICAgICAgICAgICAgICAgICAgICAgICAgICAgICAgICAgICAgICAgICAgICAgICAgICAgICAgICAgICAg ICAgICAgICAgICAgICAgICANCiAgICAgICAgICAgIC AgICAgICAgICAgICAgICAgICAgICAgICAgICAgICAgICAgICAgICAgICAgICAgICAgICAgICAgICAgIC AgICAgICAgICAgICAgICAgICAgICAgICAgICANCiAgICAgICAgICAgICAgICAgICAgICAgICAgICAgIC AgICAgICAgICAgICAgICAgICAgICAgICAgICAgICAg ICAgICAgICAgICAgICAgICAgICAgICAgICAgICAgICAgICAgICANCiAgICAgICAgICAgICAgICAgICAg ICAgICAgICAgICAgICAgICAgICAgICAgICAgICAgICAgICAgICAgICAgICAgICAgICAgICAgICAgICAg ICAgICAgICAgICAgICAgICAgICANCiAgICAgICAgIC AgICAgICAgICAgICAgICAgICAgICAgICAgICAgICAgICAgICAgICAgICAgICAgICAgICAgICAgICAgIC AgICAgICAgICAgICAgICAgICAgICAgICAgICAgICANCiAgICAgICAgICAgICAgICAgICAgICAgICAgIC AgICAgICAgICAgICAgICAgICAgICAgICAgICAgICAg ICAgICAgICAgICAgICAgICAgICAgICAgICAgICAgICAgICAgICAgICANCiAgICAgICAgICAgICAgICAg ICAgICAgICAgICAgICAgICAgICAgICAgICAgICAgICAgICAgICAgICAgICAgICAgICAgICAgICAgICAg ICAgICAgICAgICAgICAgICAgICAgICANCiAgICAgIC AgICAgICAgICAgICAgICAgICAgICAgICAgICAgICAgICAgICAgICAgICAgICAgICAgICAgICAgICAgIC AgICAgICAgICAgICAgICAgICAgICAgICAgICAgICAgICANCiAgICAgICAgICAgICAgICAgICAgICAgIC AgICAgICAgICAgICAgICAgICAgICAgICAgICAgICAg ICAgICAgICAgICAgICAgICAgICAgICAgICAgICAgICAgICAgICAgICAgICANCiAgICAgICAgICAgICAg ICAgICAgICAgICAgICAgICAgICAgICAgICAgICAgICAgICAgICAgICAgICAgICAgICAgICAgICAgICAg ICAgICAgICAgICAgICAgICAgICAgICAgICANCjw/eH DaV5vcxCIrvrA9I3deBc4UZv8RSV4xw8MzGVItYTxcwkNvXhtIYaUoXJQqIclJYrn4KQlgPU3NeRAwN3 NiD3QxRTfmXD4YRYIeDNQwfKTaQRIpGOBsLdW4ELTwURhkIF8EsMTmMAraHWDeEUYgIvJjBQPxYS1JMQ OmS538ykNgPn4SPd4IFmBwDD9kvw6AMkSoARJkTojK Vrm1YPtsUN6ZcNKvcHWhIeAyVRDYHnFgI8ahh7OqXdAgZDNTZPhrMR0Hv3ThoECnIIs+Iv9QJR1rh7Oz BGjiBsWlTT8iqf8TEYnQClYyK2KeaLvrJGOur6bzSBUcBT3fsDJjCMM4NASsSkWbtYIEXEVlmVYgoa4a idniOUJdMGGbEY2sBi1jWWExAEFcKuLpHDNCPY4EQK QaAVVbqPAwVUAmPYZFEP3UJVwqMRT8SWEodtSqeHHaRPrpIE9AJBRbqzHaWfZiZQTGJZc+Qd2OOG1ot3 XjWTigYpIcIT4ygx6OHOoQBpYlE1H5rGJaB3M3AImoZy4PJVHjXJXiFNslZFLYNOzeLK5EBY2oslO4KY 5TuJVmJAVqLKVlnCVvWNr9D56iaRSmRBswMP2PJPG+ Villa+Tx8VFZVrPKQiRULxRzJqSBVIBsGhZ4DhG5OYf2UxR1XiEH28bSyakhFtYLniCM9QRW4gYRDmNWGN OU5FrSXqoX4qtmMzKHWoJHZALfNhQ19fcVNuKSExDEYdBXPsGi0VLXJkX9XgatFxxIlicjNiHFMaKVUU YQ2IHBrgjrJkpSElgSlnCJ37wKqvXA1MWm0BDvScKZ 4jri1BhEWtHb8GAMTdLS6XEWZnKPFaWICuTIL1BBQwKsYsVImfATTpORQmYJX0KLQwFHJcSV3VLxWbZT NfZVF0ZDuoRNRzCWHgmy8HAFPrFML6GjFvGmEkRUTaWBAsMFgwDSAfUMSgACJ9NVZwYCSrFY2BWsLnVO WmEWB7HWZyLDApOZFobd3ZVJCkPCKlMjd0GRZoBOKd CVZwRMbuOWYdFYY1KPJ5JJMvXMDvUO5QOxEkLLMvFCphEWbwULYrCLUapy1GKHGcSKGyFft3XIHqJNKn COSzNIxyAJSnJDK7XEl8AWMeQHXpQL6VLfBcURAkBLdoEYPoWQAuWJRbwz9FPWAkIHAgPGOeOUVvRZMc FYRaYTkuFAEcFFL6DRN6RGOaWRHvLC0JGbMrZJInSD e4NGSlPSTyNQQvgl6WUHZrETFfIJgwHTYsVQMkHLIuXEccWISuYPG3VEDvZPPlBJXuUR6JMbBvQCRiWa i2QTQqVGGrYKIrvf7PBVXmLCD5OCZrONCzHVMgCQQkWDmoNVHtEWMrBKL7QLBqILVsPH9MZoNcQVEySG A0PablNWQaZMAkjr6DCSRqTZT1TaCvVFStIISvNHDu XXhwCZMkXLPnPYjiSVUjIBPyMS3GJtWjLRXuZJO5IyXfQABrEYHjye6WbLCjoIvtxx1RSPsWBo1FdSda VDJ0PKjsCp3syVUyBcYfSHCLFu0DgeVzQUMpRUZLYYhwMTMaCMFiZXPkGAWkYEIiEFC3FiRcAqS6OVF9 JOGyECMuSZH2TmM9OHHfXIHnD7UnIoG5Msl4O9D9VT saSQU2BBHtH3Q5WLf+KU3pVQr+Un8Ik7SwawA3ehGgVIn2Ufe9VK8QQTJUV0PMLo== Procedure Vital Signs ID Date Data Source UNK Name Value Range Interpretation Code Description Data Source(s) Diastolic blood pressure 78 mm[Hg] 78 mm[Hg] eCW1 ([facility]) Systolic blood pressure 134 mm[Hg] 134 mm[Hg] e CW1 ([facility]) Body temperature 97.3 [degF] 97.3 [degF] eCW1 ( [facility]) Respiratory rate 16 /min 16 /min eCW1 ([facility]) Heart rate 96 /min 96 /min eCW1 ([facility]) Body mass index (BMI) [Ratio] 20.31 kg/m2 20.31 kg/m2 eCW1 ([facility]) Body height 58 [in_i] 58 [in_i] eCW1 ([facility]) Body weight 97.2 [lb_av] 97.2 [lb_av] eCW1 ([facility]) ID Date Data Source [id number] 09/22/2020 11:06:13 AM [facility] Name Value Range Interpretation Code Description Data Source(s) WEIGHT RECORDED 105 lb 105 lb [facility] Body height Measured 58 in 58 in [facility] Patient Treatment Plan of Care Planned Activity Planned Date Details Description Data Source (s) Baclofen 5 MG Oral Tablet 05/26/2020 12:00:00 AM EDT eCW1 ([facility]) Baclofen 5 MG Oral Tablet 05/26/2020 12:00:00 AM EDT eCW1 ([facility]) Baclofen 5 MG Oral Tablet 05/26/2020 12:00:00 AM EDT eCW1 ([facility]) Baclofen 5 MG Oral Tablet 05/26/2020 12:00:00 AM EDT eCW1 ([facility]) Baclofen 5 MG Oral Tablet 05/26/2020 12:00:00 AM EDT eCW1 ([facility]) Baclofen 5 MG Oral Tablet 05/26/2020 12:00:00 AM EDT eCW1 ([facility]) Baclofen 5 MG Oral Tablet 05/26/2020 12:00:00 AM EDT eCW1 ([facility]) Baclofen 5 MG Oral Tablet 05/26/2020 12:00:00 AM EDT eCW1 ([facility]) Baclofen 5 MG Oral Tablet 05/26/2020 12:00:00 AM EDT eCW1 ([facility]) Baclofen 5 MG Oral Tablet 05/26/2020 12:00:00 AM EDT eCW1 ([facility]) Baclofen 5 MG Oral Tablet 05/26/2020 12:00:00 AM EDT eCW1 ([facility]) Baclofen 5 MG Oral Tablet 05/26/2020 12:00:00 AM EDT eCW1 ([facility])
[2020-10-09] MEDS ORDERED: NS 1,000 ML IV ONE (09:15)
[2020-10-09] MEDS ORDERED: ONDANSETRON 4MG/2ML VIAL IV ONE (09:15)
[2020-10-09 09:18] LABS: BASO % 0.2 % (0.0-1.0); EOS % 0.2 % (0.0-3.0); HEMATOCRIT 33.5 % (36.0-47.0); HEMOGLOBIN 10.8 g/dl (12.0-15.5); LYMPH # 0.4 10^3/uL (1.5-5.0); LYMPH % 3.8 % (24.0-44.0); MEAN CORPUSCULAR HGB CONC 32.2 g/dl (32.0-36.5); MEAN CORPUSCULAR VOLUME 93.1 fl (80.0-96.0); MONO # 0.4 10^3/uL (0.0-0.8); MONO % 4.3 % (2.0-8.0); NEUTROPHILS # 9.3 10^3/uL (1.5-8.5); NEUTROPHILS % 91.3 % (36.0-66.0); PLATELET COUNT, AUTOMATED 165 10^3/uL (150-450); WHITE BLOOD COUNT 10.2 10^3/uL (4.0-10.0)
[2020-10-09 09:45] LABS: ALBUMIN 3.3 GM/DL (3.2-5.2); ALT/SGPT 11 U/L (12-78); BILIRUBIN,DIRECT 0.2 MG/DL (0.0-0.2); BILIRUBIN,TOTAL 0.8 MG/DL (0.2-1.0); BLOOD UREA NITROGEN 7 MG/DL (7-18); CALCIUM LEVEL 8.1 MG/DL (8.5-10.1); CARBON DIOXIDE LEVEL 22 MEQ/L (21-32); CHLORIDE LEVEL 109 MEQ/L (98-107); CREATININE FOR GFR 0.49 MG/DL (0.55-1.30); GLOMERULAR FILTRATION RATE > 60.0 (>60); GLUCOSE, FASTING 96 MG/DL (70-100); LIPASE 214 U/L (73-393); POTASSIUM SERUM 3.7 MEQ/L (3.5-5.1); SODIUM LEVEL 140 MEQ/L (136-145); TOTAL PROTEIN 6.8 GM/DL (6.4-8.2)
[2020-10-09 10:27] LABS: AMPHETAMINES LEVEL URINE NEGATIVE (NEGATIVE); BARBITURATES URINE NEGATIVE (NEGATIVE); BENZODIAZEPINES URINE NEGATIVE (NEGATIVE); CANNABINOIDS URINE NEGATIVE (NEGATIVE); COCAINE METABOLITE URINE NEGATIVE (NEGATIVE); METHADONE URINE NEGATIVE (NEGATIVE); OPIATES URINE NEGATIVE (NEGATIVE); PHENCYCLIDINE URINE NEGATIVE (NEGATIVE)
[2020-10-09] MEDS ORDERED: PROM25TA22 PO (12:01)
[2020-10-09 12:12] VITALS: BP 129/56
== END 2020-10-09 12:22 | disposition home or self-care (01) ==
LOC: M ED 08:25
DX: O21.9 Vomiting of pregnancy, unspecified (principal); O99.342 Other mental disorders complicating pregnancy, second trimester; O99.332 Smoking (tobacco) complicating pregnancy, second trimester; Z79.899 Other long term (current) drug therapy
CPT/HCPCS: 80048; 80076; 80307; 81001; 83690; 85025; 87086; 96361; 96374; 99284; J2405

== ENCOUNTER → 2020-10-27 | Outpatient (CLI) | payer OTHER ==
[~2020-10-27] MED LIST changes: +DOCU100C16; -PEGPOW; +POLY510P14; +PROM25TA22 PO; +PYRI50TA41; -VITA50TA7
--- NOTE | 2020-11-01 05:33 | ECWPNPC ---
PATIENT NAME: MINERVA CONLEY : 1995 GENDER: FEMALE VISIT DATE: 10/27/2020 DISCHARGE DATE: 10/27/20 1030 VISIT LOCKED DATE TIME: PHYSICIAN: EVERTON ZARAGOZA RESOURCE: EVERTON ZARAGOZA REASON FOR APPOINTMENT 1. MRI REVIEW HISTORY OF PRESENT ILLNESS DEPRESSION SCREENING: PHQ-2 (2015 EDITION) LITTLE INTEREST OR PLEASURE IN DOING THINGS?NOT AT ALL FEELING DOWN, DEPRESSED, OR HOPELESS?NOT AT ALL TOTAL SCORE0 25-YEAR-OLD FEMALE IN FOR CHRONIC PAIN FOLLOW-UP SHE RATES HER PAIN CURRENTLY AT A 6 OUT OF 10 AND DESCRIBES IT STABBING PRESSURE. PATIENT HAD MRI RECENTLY WHICH WILL BE REVIEWED WITH PATIENT TODAY. GENERAL: -. FALL RISK SCREENING: SCREENING : NO FALLS REPORTED IN THE LAST YEAR. PAIN SCREENING: PATIENT HAS A COMPLAINT OF ACUTE OR CHRONIC PAIN :YES LOCATION OF PAIN:LOW BACK INTENSITY OF PAIN (SCALE OF 1 TO 10):6 WHAT DOES YOUR PAIN FEEL LIKE:STABBING PRESSURE DURATION:CONTINOUS, CONSTANT, AWAKENS FROM SLEEP PAIN IS INCREASED BY:ACTIVITIES, PROLONGED STANDING PAIN IS DECREASED BY: TRAMDOL TAKES OFF THE EDGE AND EASIER TO MOVE AROUND. HEAT HELPS SOME. NURSING NOTE: -. PAIN CENTER INTAKE QUESTIONS: DO YOU HAVE A HISTORY OF MRSA? :NO DO YOU TAKE A BLOOD THINNERS? :NO DO YOU HAVE ANY BLEEDING DISORDERS? :NO ANY NEW NUMBNESS OR WEAKNESS IN YOUR LEGS OR ARMS? :NO ANY PACEMAKER,DEFIBRILLATOR, OR DORSAL COLUMN STIMULATOR? :NO DO YOU HAVE ANY RASHES OR OPEN SORES? :NO ARE YOU ALLERGIC TO IV DYE? :NO ARE YOU DIABETIC? :NO ANY NEW PROBLEMS WITH YOUR MEDICATIONS? :NO HAVE YOU RECEIVED A VACCINE IN THE PAST 30 DAYS? :NO DO YOU PLAN TO RECEIVE A VACCINE IN THE NEXT 21 DAYS? :NO DO YOU NEED ANY PRESCRIPTION? :NO DO YOU TAKE ANY IMMUNOSUPPRESSIVE MEDICATIONS? :NO DO YOU HAVE ANY KIDNEY OR LIVER DISEASE? :NO IS THERE A CHANCE YOU COULD BE ? :YES ARE YOU BREAST FEEDING? :NO CURRENT MEDICATIONS TAKING TRAMADOL HCL 50 MG TABLET 1 TABLET NEEDED ORALLY FOUR TIMES DAILY NEEDED TAKING VITAMIN 27-0.8 MG TABLET 1 TABLET ORALLY ONCE A DAY TAKING SEROQUEL XR 150 MG TABLET EXTENDED RELEASE 24 HOUR 1 TABLET IN THE EVENING ORALLY ONCE A DAY TAKING EFFEXOR TABLET ORALLY TAKING IRON 325 (65 FE) MG TABLET 1 TABLET ORALLY ONCE A DAY NOT-TAKING HYDROCODONE-ACETAMINOPHEN 5-325 MG TABLET 1 TABLET NEEDED ORALLY EVERY 6 HRS NOT-TAKING HYDROCODONE-ACETAMINOPHEN 7.5-325 MG TABLET 1 TABLET NEEDED ORALLY EVERY 6 HRS NOT-TAKING FLEXERIL 10 MG 30 10 MG TABLETS ONE TABLET ORALLY EVERY 8 HOURS PRN PAIN NOT-TAKING BACLOFEN 5 MG TABLET 1 TABLET WITH FOOD OR MILK ORALLY THREE TIMES A DAY PRN MEDICATION LIST REVIEWED AND RECONCILED WITH THE PATIENT PAST MEDICAL HISTORY ASTHMA ALLERGIES N.K.D.A. SURGICAL HISTORY APPENDECTOMY SOCIAL HISTORY GENERAL: TOBACCO USE VAPORYES LATEX QUESTIONNAIRE LATEX ALLERGY : HAVE YOU EVER DEVELOPED ANY TYPE OF REACTION AFTER HANDLING LATEX PRODUCTS SUCH RUBBER GLOVES, CONDOMS, DIAPHRAGMS, BALLOONS, SOCKS, OR UNDERWEAR?YES REACTION TO LATEX CONDOMS LATEX ALLERGY : HAVE YOU EVER DEVELOPED ANY TYPE OF REACTION DURING OR AFTER DENTAL APPOINTMENT, VAGINAL/RECTAL EXAMINATION, SURGICAL PROCEDURE, OR ANY OTHER EXPOSURE?NO LATEX RISK : HAVE YOU EVER HAD ANY DIFFICULTY BREATHING OR HIVES AFTER EATING OR HANDLING ANY FRUITS, OR VEGETABLES; SUCH KIWI, BANANAS, STONE FRUITS, OR CHESTNUTSNO LATEX RISK : ARE YOU FREQUENTLY EXPOSED TO LATEX PRODUCTS IN YOUR OCCUPATION?NO DATE ASKED : 10/27/2020 ALCOHOL USE: NO. 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 02/2020 REVIEW OF SYSTEMS CONSTITUTIONAL: ANY RECENT FEVER NO . CHILLS NO . WEIGHT CHANGE OF UNKNOWN REASONS NO . GASTROENTEROLOGY: NEW UNEXPLAINABLE CHANGES IN BOWEL CONTROL NO . CONSTIPATION NO . GENITOURINARY: ANY NEW CHANGE IN BLADDER CONTROL? NO . NEUROLOGY: NEW ONSET DIZZINESS OR NEUROLOGICAL CHANGES NOT MENTIONED NO . NEW NUMBNESS OR PAIN PATTERNS NOT MENTIONED AND PERTINENT TO TODAY'S VISIT NO . CARDIOLOGY: NEW CHEST PRESSURE NO . PATIENT DENIES NO . RESPIRATORY: UNEXPLAINABLE COUGH NO . NEW SHORTNESS OF BREATH NO . VITAL SIGNS WT 112.4 LBS, HT 58 IN, BMI 23.49 INDEX, BP 108/62 MM HG, HR 89 /MIN, RR 16 /MIN, TEMP 97.0 F, OXYGEN SAT % 99%, SAFE IN ENV? (Y/N) YES, NA INITIALS AK 09:25, REVIEWED BY: JEANNETTE LIMON MA. EXAMINATION GENERAL EXAMINATION: GENERALNO ACUTE DISTRESS, WELL NOURISHED AND HYDRATED. PSYCHAPPROPRIATE MOOD AND AFFECT . NECK:POINT TENDER BILATERAL NECK AND SHOULDERS, STARTING SKIN SHOWS NO ERYTHEMA, ECCHYMOSIS, INCREASED WARMTH, AND/OR SKIN ERUPTIONS NOTED. BANDS OF RESTRICTIVE TISSUE NOTED OVER TRIGGER POINTS . LUNGS:CLEAR TO AUSCULTATION BILATERALLY, NO WHEEZES, RHONCHI, RALES. HEART:NO MURMURS, REGULAR RATE AND RHYTHM. ASSESSMENTS MYALGIA, OTHER SITE - M79.18 (PRIMARY) TREATMENT MYALGIA, OTHER SITE MEDICATION: NORCO TABLET 5MG/325MG ORALLY (HYDROCODONE/ACETAMINOPHEN) (ORDERED FOR 11/07/2020) MEDICATION: VALIUM TAB 2MG ORALLY (DIAZEPAM) (ORDERED FOR 11/07/2020) NOTES: 45-YEAR-OLD FEMALE IN FOR CHRONIC PAIN FOLLOW-UP. MRI WAS REVIEWED WITH PATIENT TODAY. GIVEN PRESENTING SYMPTOMS AND RESULTS OF PHYSICAL EXAMINATION RECOMMENDED TRIGGER POINT INJECTIONS BILATERALLY NECK AND SHOULDER WITH POST PROCEDURAL FOLLOW-UP. HE HAS EXPRESSED UNDERSTANDING OF AND WAS IN AGREEMENT WITH TREATMENT PLAN. GIVEN TIME TO ASK QUESTIONS AND EXPRESS CONCERNS. , ISTOP REGISTRY REVIEWED AND DEMONSTRATES COMPLLIANCE. (REF # [id number] ) BRINGS IN MEDICATIONS WHICH IS APPROPRIATE FOR WHAT WAS DISPENSED. RECENT URINE TOXICOLOGY REVIEWED. NO UNAUTHORIZED MEDICATIONS. NO ILLICIT SUBSTANCES AND PRESCRIBED MEDICATIONS WERE PRESENT. OTHERS NOTES: TRIGGER POINT INJECTION MATERIAL WAS PRINTED AND REVIEWED WITH PT. EM. PROCEDURE CODES FA211 ESTABILISHED PATIENT [facility] CHARGE DISPOSITION & COMMUNICATION FOLLOW UP POSTPROCEDURE (REASON: BILATERAL NECK AND SHOULDER TRIGGER POINT INJECTIONS) ELECTRONICALLY SIGNED BY JORGE L BHARDWAJ ON 10/31/2020 AT 03:42 PM EST DISCLAIMER : THIS IS A VISIT SUMMARY EXTRACTED FROM THE [employer] CHART. IT IS NOT A COPY OF THE [address] PROGRESS NOTE. MTDD
== END ==
LOC: M PAIN 09:15
PROVIDERS: ATTEND Family Medicine
DX: M79.18 Myalgia, other site (principal); Z79.899 Other long term (current) drug therapy

== ENCOUNTER 2020-12-02 10:03 | Outpatient (CLI) | payer OTHER ==
[~2020-12-02] VITALS: Ht 147.3 cm; Wt 55.0 kg
[~2020-12-02 10:03] MED LIST changes: +IRON SUCROSE 300 MG in NS 250 ML OVER 90 MIN. IV ONE
[2020-12-02 10:05] VITALS: BP 121/68
[2020-12-02 13:00] VITALS: BP 115/58
== END 2020-12-02 13:00 | disposition home or self-care (01) ==
LOC: M INFU 10:03
PROVIDERS: ATTEND Obstetrics & Gynecology
DX: O99.013 Anemia complicating pregnancy, third trimester (principal); D50.9 Iron deficiency anemia, unspecified; Z3A.28 28 weeks gestation of pregnancy
CPT/HCPCS: 96365; 96366; J1756

== ENCOUNTER 2020-12-09 08:18 | Outpatient (CLI) | payer OTHER ==
[~2020-12-09] VITALS: Ht 147.3 cm; Wt 55.0 kg
[2020-12-09 08:10] VITALS: BP 126/57
[~2020-12-09 08:18] MED LIST changes: -IRON SUCROSE 300 MG in NS 250 ML OVER 90 MIN. IV ONE
[2020-12-09] MEDS ORDERED: IRON SUCROSE 300 MG in NS 250 ML OVER 90 MIN. IV ONE (08:30)
[2020-12-09 10:00] VITALS: BP 122/55
[2020-12-09 10:49] VITALS: BP 116/62
[2020-12-09 11:46] VITALS: BP 114/66
[2020-12-09 12:15] VITALS: BP 127/61
== END 2020-12-09 12:15 | disposition home or self-care (01) ==
LOC: M INFU 08:18
PROVIDERS: ATTEND Obstetrics & Gynecology
DX: O99.013 Anemia complicating pregnancy, third trimester (principal); D50.9 Iron deficiency anemia, unspecified; Z3A.28 28 weeks gestation of pregnancy
CPT/HCPCS: 96365; 96366; J1756

== ENCOUNTER 2020-12-13 13:24 | Outpatient (CLI) | payer OTHER ==
[~2020-12-13] VITALS: Ht 147.3 cm; Wt 54.5 kg
[2020-12-13 13:52] VITALS: BP 97/62
--- NOTE | 2020-12-13 14:42 | IPNPDOC ---
Text Note Date of Service The patient was seen on 12/13/20. NOTE 25yo (one child given up for adoption) presenting for c/o DFM x2 days and cramping pelvic/back pain. Patient reports she has had +FM but only active FM from [id number], she struggles to make kick counts during the day. She reports she has been taking fioriect, tylenol, flexeril, and tramadol for mgmt of chronic back/neck pain. She reports that she has been hydrating but in further discussion she has been drinking green tea and gatorade but minimal amounts of water. She also admitted that she has been sleeping on the floor as she doesn't currently have a bed but notes that her new bed is scheduled to arrive on Saturday and this has been worsening her lower back pain. Denies VB or LOF. Vitals: normotensive, afebrile NST: reactive Marvel: rare ctx's TAUS: breech presentation, posterior placenta, MIRTA 15.5cm, BPP 10/10 PE: General: well-appearing sitting upright in bed in NAD. Patient was noted to quickly change positions from laying to sitting and standing without exhibiting pain RESP: no exaggerated respiratory effort appreciated CARDS: well-perfused, no edema ABD: soft, gravid, S=D, nontender : NEFG, no abnml vaginal discharge, no VB. SVE closed/thick/high. EXT: no edema A/P: 25yo presenting for c/o DFM and cramping pelvic pain. status reassuring with BPP 10/10. Patient counseled on FKCs and how to complete (laying on side in quiet room to focus on FKCs with goal of 5 in one hour twice daily) Patient counseled on adequate hydration with water and to limit intake of caffeinated and sugary beverages Patient counseled on PTL precautions Patient to f/u for COB appt as scheduled All questions answered. Med rec done. KEY ACOSTA DO Dec 13, 2020 14:42
[2020-12-13] MEDS ORDERED: BUTA-198 PO (15:02)
[2020-12-13] MEDS ORDERED: ACET-907 PO (15:02)
== END 2020-12-13 14:34 | disposition home or self-care (01) ==
LOC: M LDO 13:24
DX: O36.8190 Decreased fetal movements, unspecified trimester, not applicable or unspecified (principal); O26.899 Other specified pregnancy related conditions, unspecified trimester; M54.5 Low back pain; Z3A.00 Weeks of gestation of pregnancy not specified
CPT/HCPCS: 59025; G0378; G0463

== ENCOUNTER 2020-12-16 11:27 | Outpatient (CLI) | payer OTHER ==
[~2020-12-16] VITALS: Ht 147.3 cm; Wt 55.0 kg
[~2020-12-16 11:27] MED LIST changes: +ACET-907 PO; +BUTA-198 PO
[2020-12-16 11:30] VITALS: BP 117/62
[2020-12-16] MEDS ORDERED: IRON SUCROSE 300 MG in NS 250 ML OVER 90 MIN. IV ONE (11:30)
[2020-12-16 13:00] VITALS: BP 128/62
[2020-12-16 14:49] VITALS: BP 133/69
== END 2020-12-16 14:50 | disposition home or self-care (01) ==
LOC: M INFU 11:27
PROVIDERS: ATTEND Obstetrics & Gynecology
DX: O99.013 Anemia complicating pregnancy, third trimester (principal); Z3A.28 28 weeks gestation of pregnancy
CPT/HCPCS: 96365; 96366; J1756

== ENCOUNTER 2021-01-08 20:15 | Emergency (ER) | payer OTHER ==
[~2021-01-08] VITALS: Ht 147.3 cm; Wt 54.5 kg
[2021-01-08 20:16] VITALS: BP 121/68
[2021-01-09] MEDS ORDERED: CLON0.5T2 (13:59)
[2021-01-09] MEDS ORDERED: QUET100T2 (13:59)
[2021-01-09] MEDS ORDERED: CYCL-707 (13:59)
== END 2021-01-08 22:10 | disposition left against medical advice (07) ==
LOC: M ED 20:15
DX: Z53.21 Procedure and treatment not carried out due to patient leaving prior to being seen by health care provider (principal)

== ENCOUNTER 2021-01-09 13:48 | Emergency (ER) | payer OTHER ==
[~2021-01-09] VITALS: Ht 147.3 cm; Wt 54.5 kg
[2021-01-09] MEDS ORDERED: QUET100T2 (13:59)
[2021-01-09] MEDS ORDERED: CYCL-707 (13:59)
[2021-01-09] MEDS ORDERED: CLON0.5T2 (13:59)
--- NOTE | 2021-01-09 14:20 | REP ---
INDICATION: FALL PAIN. COMPARISON: None. TECHNIQUE: Four views FINDINGS: No acute fracture or destructive osseous lesion. The mortise is intact. IMPRESSION: Negative exam <Electronically signed by Tobi Jones > 01/09/21 [id number]
--- NOTE | 2021-01-09 14:21 | REP ---
INDICATION: FALL PAIN. COMPARISON: None. TECHNIQUE: Two views FINDINGS: No acute fracture or destructive osseous lesion. IMPRESSION: Negative exam <Electronically signed by Tobi Jones > 01/09/21 [id number]
--- NOTE | 2021-01-09 17:30 | REP ---
INDICATION: diffuse R foot pain s/p fall, 34 weeks preg. COMPARISON: None. FINDINGS: The joint spaces are symmetric and relatively well maintained. There is no evidence of acute fracture or destructive osseous lesion. IMPRESSION: Negative. <Electronically signed by Tobi Jones > 01/09/21 [id number]
--- NOTE | 2021-01-09 19:04 | REP ---
INDICATION: r/o DVT RLE. COMPARISON: None. TECHNIQUE: Multiple ultrasonographic images of the deep venous structures of the right thigh were obtained from the common femoral vein to the popliteal vein along with Doppler interrogation and color flow Doppler images. FINDINGS: There is no abnormal echogenic material seen within any of the visualized deep venous structures that would suggest acute thrombosis. Coaptation is unremarkable throughout. Doppler interrogation shows an expected response to respiratory variability and augmentation. The color flow images show what appears to be a normal vascular pattern throughout. IMPRESSION: There is no ultrasonographic evidence of deep venous thrombosis involving any of the visualized deep venous structures of the right thigh, as described above. <Electronically signed by Tobi Jones > 01/09/21 [id number]
--- NOTE | 2021-01-09 20:06 | REP ---
INDICATION: 34 weeks, fall injury to RLE, OBGYN request. COMPARISON: None TECHNIQUE: Limited OB ultrasound ordered and performed transabdominally FINDINGS: Multiple ultrasonographic images of the gravid uterus show a single living intra uterine gestation in the cephalic presentation. Doppler interrogation of the heart shows a heart rate of 134 beats per minute. The placenta is fundal and not low-lying. The cervix measures 2.9 cm in length and is closed. The subjective amniotic fluid volume is within normal limits. The calculated amniotic fluid index is 14.8 within expected range 8.1 to 24.8. Doppler interrogation of the umbilical artery shows an AB ratio of 2.41. This is within the normal range. IMPRESSION: Limited OB ultrasound as described above. <Electronically signed by Tobi Jones > 01/09/212001
[2021-01-09 20:13] VITALS: BP 111/63
== END 2021-01-09 21:00 | disposition home or self-care (01) ==
LOC: M ED 13:48
DX: O9A.213 Injury, poisoning and certain other consequences of external causes complicating pregnancy, third trimester (principal); S93.401A Sprain of unspecified ligament of right ankle, initial encounter; S80.11XA Contusion of right lower leg, initial encounter; S90.31XA Contusion of right foot, initial encounter; X50.0XXA Overexertion from strenuous movement or load, initial encounter; Y92.002 Bathroom of unspecified non-institutional (private) residence as the place of occurrence of the external cause; Y93.9 Activity, unspecified; Y99.9 Unspecified external cause status; Z3A.34 34 weeks gestation of pregnancy; Z79.899 Other long term (current) drug therapy

== ENCOUNTER 2021-01-14 08:42 | Emergency (ER) | payer OTHER ==
[~2021-01-14] VITALS: Ht 147.3 cm; Wt 127.0 kg
[~2021-01-14 08:42] MED LIST changes: +CLON0.5T2; +CYCL-707; +QUET100T2
[2021-01-14 08:44] VITALS: BP 107/59
== END 2021-01-14 09:55 | disposition home or self-care (01) ==
LOC: M ED 08:42
DX: O9A.213 Injury, poisoning and certain other consequences of external causes complicating pregnancy, third trimester (principal); S93.402A Sprain of unspecified ligament of left ankle, initial encounter; W01.0XXA Fall on same level from slipping, tripping and stumbling without subsequent striking against object, initial encounter; Y92.019 Unspecified place in single-family (private) house as the place of occurrence of the external cause; Y93.9 Activity, unspecified; Y99.9 Unspecified external cause status; O26.893 Other specified pregnancy related conditions, third trimester; M54.32 Sciatica, left side; Z3A.34 34 weeks gestation of pregnancy; Z79.899 Other long term (current) drug therapy

== ENCOUNTER 2021-01-16 00:23 | Inpatient (IN) | payer OTHER ==
[~2021-01-16] VITALS: Ht 147.3 cm; Wt 57.2 kg
[2021-01-16] VITALS (10 sets, daily range): BP systolic 88–118; BP diastolic 51–66
[2021-01-16] MEDS ORDERED: CLON0.25 PO (00:44)
[2021-01-16] MEDS ORDERED: LACTATED RINGER'S 1000 ML IV STA (01:08)
[2021-01-16] MEDS ORDERED: LR 1,000 ML IV SCH (01:10)
[2021-01-16 01:34] LABS: HEMATOCRIT 31.4 % (36.0-47.0); HEMOGLOBIN 9.9 g/dl (12.0-15.5); MEAN CORPUSCULAR HEMOGLOBIN 32.2 pg (27.0-33.0); MEAN CORPUSCULAR HGB CONC 31.5 g/dl (32.0-36.5); MEAN CORPUSCULAR VOLUME 102.3 fl (80.0-96.0); PLATELET COUNT, AUTOMATED 160 10^3/uL (150-450); RED BLOOD COUNT 3.07 10^6/uL (4.00-5.40); WHITE BLOOD COUNT 12.3 10^3/uL (4.0-10.0)
[2021-01-16] MEDS ORDERED: PENICILLIN G POTASSIUM IV 5 MU in D5W MINI-BAG PLUS 100 ML IV STA (02:03)
[2021-01-16 02:32] LABS: APPEARANCE, URINE CLEAR (CLEAR); BACTERIA, URINE AUTO NEGATIVE (NEGATIVE); BILIRUBIN, URINE AUTO NEGATIVE (NEGATIVE); BLOOD, URINE BLOOD 3+ (NEGATIVE); COLOR, URINE YELLOW (YELLOW); GLUCOSE, URINE (UA) AUTO NEGATIVE (NEGATIVE); KETONE, URINE AUTO NEGATIVE (NEGATIVE); LEUKOCYTE ESTERASE, URINE AUTO 1+ (NEGATIVE); NITRITE, URINE AUTO NEGATIVE (NEGATIVE); PROTEIN, URINE AUTO 1+ mg/dL (NEGATIVE); RBC, URINE AUTO 5 /HPF (0-3); SPECIFIC GRAVITY URINE AUTO 1.012 (1.002-1.035); SQUAMOUS EPITHELIAL CELL UR AU 2 /HPF (0-6); UROBILINOGEN, URINE AUTO 0.2 mg/dL (0.0-2.0); WBC, URINE AUTO 3 /HPF (0-3)
[2021-01-16 02:52] LABS: AMPHETAMINES URINE REFLEX NEGATIVE (NEGATIVE); BARBITURATES URINE REFLEX NEGATIVE (NEGATIVE); BENZODIAZEPINES URINE REFLEX NEGATIVE (NEGATIVE); CANNABINOIDS URINE REFLEX NEGATIVE (NEGATIVE); COCAINE METABOLITE URINE REFLE NEGATIVE (NEGATIVE); METHADONE URINE REFLEX NEGATIVE (NEGATIVE); OPIATES URINE REFLEX NEGATIVE (NEGATIVE); PHENCYCLIDINE URINE REFLEX NEGATIVE (NEGATIVE)
--- NOTE | 2021-01-16 02:55 | REPVR ---
PROCEDURE INFORMATION: Exam: US , Limited Exam date and time: 01/16/2021 2:05 AM Age: 25 years old Clinical indication: Lmp or gestational age (in weeks): 35; Antepartum complications; Bleeding; ; Additional info: 35 weeks r/out abruptio aph TECHNIQUE: Imaging protocol: Real-time ultrasound of the maternal uterus with image documentation. Exam focused on the clinical indication. COMPARISON: Obs. Limited, [facility] US 01/09/2021 7:28 PM FINDINGS: Gestation: There is a single live intrauterine . presentation: Cephalic. Placenta: Grade 1. Posterior location. No placenta previa or placental abruption is seen. Amniotic fluid index: 15.9 cm MATERNAL: Cervix: Closed. Measures 2.7 cm in length. No funneling of the internal os of the cervix is noted. IMPRESSION: Single live intrauterine in cephalic presentation without evidence for placenta previa or placental abruption. PROCEDURE INFORMATION: Exam: US Doppler Velocimetry of the Umbilical Artery Exam date and time: 01/16/2021 2:05 AM Age: 25 years old Clinical indication: Lmp or gestational age (in weeks): 35; Antepartum complications; Bleeding; ; Additional info: 35 weeks r/out abruptio aph TECHNIQUE: Imaging protocol: US Doppler velocimetry of the umbilical artery with Doppler color and waveform analysis. COMPARISON: Obs. Limited, [facility] US 01/09/2021 7:28 PM FINDINGS: Umbilical cord and insertion: There are 2 umbilical arteries and 1 umbilical vein. Cord insertion on the abdominal wall is normal. Umbilical artery Doppler: There are 2 umbilical arteries, which are patent. There is normal continuous forward flow in the umbilical artery during diastole and no absent or reversed end-diastolic flow is noted. Umbilical artery peak systolic velocity: 59.4 cm/s Umbilical artery systolic to diastolic ratio: Systolic to diastolic ratio is within normal limits for age and measures 2.54. IMPRESSION: Unremarkable umbilical Doppler for age. Electronically signed by: Zachary Forte On 01/16/2021 02:54:46 AM
[2021-01-16 04:04] LABS: AMPHETAMINES URINE REFLEX NEGATIVE (NEGATIVE); BARBITURATES URINE REFLEX NEGATIVE (NEGATIVE); BENZODIAZEPINES URINE REFLEX NEGATIVE (NEGATIVE); CANNABINOIDS URINE REFLEX NEGATIVE (NEGATIVE); COCAINE METABOLITE URINE REFLE NEGATIVE (NEGATIVE); METHADONE URINE REFLEX NEGATIVE (NEGATIVE); OPIATES URINE REFLEX NEGATIVE (NEGATIVE); PHENCYCLIDINE URINE REFLEX NEGATIVE (NEGATIVE)
[2021-01-16] MEDS ORDERED: PENICILLIN G POTASSIUM IV 2.5 MU in IV 1 EA IV SCH (06:30)
[2021-01-16] MEDS ORDERED: ACETAMINOPHEN 500 MG TAB PO ONE (06:35)
--- NOTE | 2021-01-16 07:02 | HPEPDOC ---
Obstetrical History & Physical General Date of Admission Item Value Date Time Urine Opiates Screen NEGATIVE 01/16/21 033 Urine Methadone Screen NEGATIVE 01/16/21329 Urine Barbiturates Screen NEGATIVE 01/16/21329 Urine Phencyclidine Screen NEGATIVE 01/16/21329 Urine Amphetamines Screen NEGATIVE 01/16/21329 Urine Benzodiazepines Screen NEGATIVE 01/16/21329 Urine Cocaine Metabolite Screen NEGATIVE 01/16/21329 Urine Cannabinoids Screen NEGATIVE 01/16/21329 Item Value Date Time Urine Color YELLOW 01/16/21 0208 Urine Appearance CLEAR 01/16/21207 Urine pH 7.0 UNITS 01/16/21207 Urine Specific [place] 1.012 01/16/21207 Urine Protein 1+ mg/dL H 01/16/21207 Urine Glucose (Auto)(UA) NEGATIVE mg/dL 01/16/21207 Urine Ketones (Auto) NEGATIVE mg/dL 01/16/21207 Urine Blood 3+ H 01/16/21207 Urine Nitrite NEGATIVE 01/16/21207 Urine Bilirubin NEGATIVE 01/16/218 Urine Urobilinogen 0.2 mg/dL 01/16/218 Urine Leukocyte Esterase (Auto) 1+ H 01/16/218 Urine WBC (Auto) 3 /HPF 01/16/21 0208 Urine RBC (Auto) 5 /HPF H 01/16/21 0208 Urine Hyaline Casts (Auto) 0 /LPF 01/16/218 Urine Bacteria (Auto) NEGATIVE 01/16/21207 Urine Squamous Epithelial Cells 2 /HPF 01/16/218 Item Value Date Time White Blood Count 12.3 10^3/uL H 01/16/21 0126 Red Blood Count 3.07 10^6/uL L 01/16/21 0126 Hemoglobin 9.9 g/dl L 01/16/21 012 Hematocrit 31.4 % L 01/16/21125 Mean Corpuscular Volume 102.3 fl H 01/16/21125 Mean Corpuscular Hemoglobin 32.2 pg 01/16/21125 Mean Corpuscular Hemoglobin Concent 31.5 g/dl L 01/16/21 0126 Red Cell Distribution Width 18.2 % H 01/16/21 012 Platelet Count 160 10^3/uL 01/16/21 0126 January 16, 2021 at 01:13 Primary Care Physician: Zay Shepard MD History of Present Illness 01/16/2021 HISTORY OF 1 HOUR [facility] POST INTERCOURSE WITH PAINFUL CONTRACTIONS CONTINUOUSLY . NO SROM Chief Complaint: Contractions, pre-term Information Provided By: Patient Age: 24 : 5 Term: 2 Pre-term: 1 Abortions: 1 Livin Care Care: Good Care Number of Visits: 10 Dating Final EDC: Feb 20, 2021 Final EDC for Daily Update: Feb 20, 2021 Final EDC by: LMP LMP: May 16, 2020 1st Trimester Date: Jul 06, 2020 Weeks + Days: 6.1 Estimated Date of Confinement: Feb 20, 2021 EGA at Admission: 35.0 Antepartum Course Diagnos(e)s [facility] AT 35 WEEKS Height (inches): 58 Pre- weight (lbs.): 100.8 Admission Weight (lbs.): 120.6 Change in Weight (lbs.): 20.2 Past Medical History Past Obstetrical History : Past Obstetrical History: Multigravida (03/22/2012 36 WEEKS 7 LBS) Date of Delivery: December 24, 2004 Gestation: 40 Type of Delivery: Spontaneous Vaginal Del. Complications: Yes (GIVEN UO FOR ADOPTION NO DETAILS) MOLD FILLER PLASTIC DOLLS History: No pertinent history (SPONTANOUS ) Past Medical History Medical History HISTORY OF OPOID DEPENDENCE, BIPOLAR W PSYCHOSIS ASTHMA RH NEGATIVE SMOKER ANEMIA Surgical History: Denies/None, Other (RUPTURED DISC, APPENDECTOMY ) Family History Significant Family History: Other (HYPERTENSION,PANCREATITIS,PSORIATIC ARTHRITIS, BREAST CANCER ) Social History Social history TO ACTIVE DUTY VAPS / NON SMOKER CHRONIC PAIN NO VIOLENCE Marital Status: Family situation: Spouse/partner home Psychosocial History: Bipolar (WITH PSYCHOSIS) * Smoker: current smoker Alcohol: Denies Drugs: prescription drugs (TRAMADOL PERCOCET OPOID DEPENDENCE FLEXERIL RESPERIDONE ) Abuse Violence Screening Have you been hit/kicked/slapp: No Have you been sexually assault: No Imunizations Tdap status: current Influenza Status: current Allergies Coded Allergies: No Known Allergies (Unverified , 05/17/20) Medications Scheduled Clonazepam (Clonazepam) 0.25 Mg Tab.rapdis, 0.25 MG PO DAILY Scheduled PRN Ondansetron HCl (Zofran) 4 Mg Tablet, 4 MG PO Q6-8HP PRN for nausea/vomiting Tramadol HCl (Tramadol HCl) 50 Mg Tablet, 50 MG PO QID PRN for PAIN Miscellaneous Medications Quetiapine Fumarate (Quetiapine Fumarate) 100 Mg Tablet Physical Examination Physical Examination GENERAL: Alert and oriented times three. BREAST: . ABDOMEN: Gravid and tender to touch. FETUS: Is vertex (VTX) by sterile vaginal examination (SVE), fetus is vertex (VTX) by Mo. POSTERIOR FINGER TIP MINIMAL BLEEDING,50 % EFFACED -3 STATION HEART RATE: Regular rate and rhythm. LUNGS: Clear to auscultation (CTA). EXTREMITIES: No edema. No clonus. Deep tendon reflexes (DTRs) + . Other physical findings PATIENT APPEARS DISORIENTATED NOT RESPONSIVE IN COHETENT WAY TO QUESTIONS Vital Signs/I&O Vital Signs Date Time Temp Pulse Resp B/P (MAP) Pulse Ox O2 Delivery O2 Flow Rate FiO2 01/16/21 00:27 97.9 86 18 102/59 (73) 96 Laboratory Data 24H LABS Laboratory Tests 2 01/16/21 01:19: Serology Scanned Report Hepatitis B Testing Pertinent Laboratoy Data Blood Type: A- RBC Antibody Screen: Negative HIV: Negative Hepatitis B: Negative Rapid Plasma Reagin: Nonreactive Rubella: Immune Varicella: Nonreactive Chlamydia/Gonorrhea: Negative Group B Streptococcus: Unknown Quad Screen Test: Declined Cystic Fibrosis: Negative Anatomy Ultrasound Ultrasound Date: January 09, 2021 Placenta Location: Anterior Normal Anatomy: Yes Steroid Therapy Steroid Therapy: No Vaginal Examination Dilation: Fingertip Effacement: 50% Station: -3 Cervical Consistency: Soft Cervical Position: Posterior Presentation: Cephalic presentation Assessment Variability: Minimal to moderate Accelerations: None Decelerations: None Tocometer Contractions: Yes Frequency: regular Duration: less than 60 seconds Strength: palpated as moderate Multi-drug resistant Organism: No history of MDRO Assessment/Plan Assessment 24year-old (G5 para (P3 at 35 weeks by 6.1-week ultrasound. Presents to Labor and Delivery (L&D) . Plan Admit and orient. Automatic Car Wash Attendant and consent. Diet: NPO Group B Streptococcus (GBS) UNKNOWN Labs and intravenous (IV) per unit protocol. Counseled on Pitocin and induction of labor (IOL). Lactated Ringers (LR): [id number] mL, then at 125 mL/hr. Anticipate [normal spontaneous delivery ()]. C-S as appropriate. Labor and Delivery Counseling PLAN OF CARE ADMIT RESUSCITATE FETUS IV ANTIBIOTICS RE UNKNOWN GBS , US RE ABRUPTIO MONITOR CLOSELY REEVALUATE 1 HOUR [facility] NAME: MINERVA CONLEY DATE OF : 1995 BUSINESS NUMBER: [id number] AGE: 25 SEX: F REPORT #: [id number] ROOM: [facility] TECHNOLOGIST: TUNG DOCTOR: Zay Shepard MD Ordered for Date&Time: 01/16/21120 cc: [~ rep ct ivnm] Service Date&Time: 01/16/21204 This report is in Signed status. Interpretation performed by [facility]. Thank you for having your radiology procedures performed at [facility] RADIOLOGY REPORT Date&Time printed: [~ rep prt dt last] [~ rep prt tm last] Page 2 of 2 [place] [id number] RADIOLOGY REPORT This report is in Signed status. Interpretation performed by [facility]. Thank you for having your radiology procedures performed at [facility] RADIOLOGY REPORT Date&Time printed: [~ rep prt dt last] [~ rep prt tm last] Page 1 of 2 NAME: MINERVA CONLEY DATE OF : 1995 BUSINESS NUMBER: [id number] AGE: 25 SEX: F REPORT #: [id number] ROOM: [facility] TECHNOLOGIST: TUNG DOCTOR: Zay Shepard MD Ordered for Date&Time: 01/16/21120 cc: [~ rep ct ivnm] Service Date&Time: 01/16/21204 EXAMINATION REQUESTED: Obs. Limited, M[facility] US REASON FOR PATIENT VISIT: BLEEDING REASON FOR EXAMINATION: 35 WEEKS R/OUT ABRUPTIO [facility] PROCEDURE INFORMATION: Exam: US , Limited Exam date and time: 01/16/2021 2:05 AM Age: 25 years old Clinical indication: Lmp or gestational age (in weeks): 35; Antepartum complications; Bleeding; ; Additional info: 35 weeks r/out abruptio aph TECHNIQUE: Imaging protocol: Real-time ultrasound of the maternal uterus with image documentation. Exam focused on the clinical indication. COMPARISON: Obs. Limited, [facility] US 01/09/2021 7:28 PM FINDINGS: Gestation: There is a single live intrauterine . presentation: Cephalic. Placenta: Grade 1. Posterior location. No placenta previa or placental abruption is seen. Amniotic fluid index: 15.9 cm MATERNAL: Cervix: Closed. Measures 2.7 cm in length. No funneling of the internal os of the cervix is noted. IMPRESSION: Single live intrauterine in cephalic presentation without evidence for placenta previa or placental abruption. PROCEDURE INFORMATION: Exam: US Doppler Velocimetry of the Umbilical Artery Exam date and time: 01/16/2021 2:05 AM Age: 25 years old Clinical indication: Lmp or gestational age (in weeks): 35; Antepartum complications; Bleeding; ; Additional info: 35 weeks r/out abruptio aph TECHNIQUE: Imaging protocol: US Doppler velocimetry of the umbilical artery with Doppler color and waveform analysis. COMPARISON: Obs. Limited, [facility] US 01/09/2021 7:28 PM FINDINGS: Umbilical cord and insertion: There are 2 umbilical arteries and 1 umbilical vein. Cord insertion on the abdominal wall is normal. Umbilical artery Doppler: There are 2 umbilical arteries, which are patent. There is normal continuous forward flow in the umbilical artery during diastole and no absent or reversed end-diastolic flow is noted. Umbilical artery peak systolic velocity: 59.4 cm/s Umbilical artery systolic to diastolic ratio: Systolic to diastolic ratio is within normal limits for age and measures 2.54. IMPRESSION: Unremarkable umbilical Doppler for age. Electronically signed by: Zachary Melissa On 01/16/2021 02:54:46 AM DD: ZACHARY MELISSA MD 01/16/21 0205 DT: KENDY 01/16/21 0254 DS: MIKKI 01/16/21 0254 [~ rep ct labl] Zay Shepard MD January 16, 2021 01:38
--- NOTE | 2021-01-16 07:18 | IPNPDOC ---
Text Note Date of Service The patient was seen on 01/16/21. NOTE 01/16/21 reviewed over last 3 hours patient progress. PATIENT HAD NO MORE BL EEDING INITIALLY HAD REACTIVE STRIP CONTRACTIONS MODERATE AND EVALUATION FOR BLEEDING NEGATIVE . PATIENT WENT TO BATHROOM AND RETURNED BABY WAS DECREASED VARIABILITY, PATIENT APPEARED INCOHERENT, AND WAS UNABLE TO MAINTAIN THOUGHT. PATIENT HAS HISTORY OF OPIOIDS DEPENDANCY AND WERE UNABLE TO EXPLAIN SUDDEN CHANGE , ROLLED OUT ABRUPTIO,US NEGATIVE FOR ABRUPTIO, VERTEX CERVIX CLOSED CONFIRMED BY EXAMINATION, BOLUS FLUID AND RESTED PATIENT CONTRACTIONS SPACED OUT AFTER 3 HOURS STRIP BETTER MODERATE VARIABILITY SPACED CONTRACTIONS NO BLEEDING . PRESENT PLAN ISABELLE STOP ANTIBIOTICS SALINE LOCK AND REVIEW FOR DISCHARGE TODAY [facility] NAME: MINERVA CONLEY DATE OF : 1995 BUSINESS NUMBER: [id number] AGE: 25 SEX: F REPORT #: [id number] ROOM: [facility] TECHNOLOGIST: TUNG DOCTOR: Zay Shepard MD Ordered for Date&Time: 01/16/21 012 cc: [~ rep ct ivnm] Service Date&Time: 01/16/21 0205 This report is in Signed status. Interpretation performed by [facility]. Thank you for having your radiology procedures performed at [facility] RADIOLOGY REPORT Date&Time printed: [~ rep prt dt last] [~ rep prt tm last] Page 2 of 2 [place] [id number] RADIOLOGY REPORT This report is in Signed status. Interpretation performed by [facility]. Thank you for having your radiology procedures performed at [facility] RADIOLOGY REPORT Date&Time printed: [~ rep prt dt last] [~ rep prt tm last] Page 1 of 2 NAME: MINERVA CONLEY DATE OF : 1995 BUSINESS NUMBER: [id number] AGE: 25 SEX: F REPORT #: [id number] ROOM: [facility] TECHNOLOGIST: TUNG DOCTOR: Zay Shepard MD Ordered for Date&Time: 01/16/21 012 cc: [~ rep ct ivnm] Service Date&Time: 01/16/21 020 EXAMINATION REQUESTED: Obs. Limited, [facility] US REASON FOR PATIENT VISIT: BLEEDING REASON FOR EXAMINATION: 35 WEEKS R/OUT ABRUPTIO [facility] PROCEDURE INFORMATION: Exam: US , Limited Exam date and time: 01/16/2021 2:05 AM Age: 25 years old Clinical indication: Lmp or gestational age (in weeks): 35; Antepartum complications; Bleeding; ; Additional info: 35 weeks r/out abruptio aph TECHNIQUE: Imaging protocol: Real-time ultrasound of the maternal uterus with image documentation. Exam focused on the clinical indication. COMPARISON: Obs. Limited, [facility] US 01/09/2021 7:28 PM FINDINGS: Gestation: There is a single live intrauterine . presentation: Cephalic. Placenta: Grade 1. Posterior location. No placenta previa or placental abruption is seen. Amniotic fluid index: 15.9 cm MATERNAL: Cervix: Closed. Measures 2.7 cm in length. No funneling of the internal os of the cervix is noted. IMPRESSION: Single live intrauterine in cephalic presentation without evidence for placenta previa or placental abruption. PROCEDURE INFORMATION: Exam: US Doppler Velocimetry of the Umbilical Artery Exam date and time: 01/16/2021 2:05 AM Age: 25 years old Clinical indication: Lmp or gestational age (in weeks): 35; Antepartum complications; Bleeding; ; Additional info: 35 weeks r/out abruptio aph TECHNIQUE: Imaging protocol: US Doppler velocimetry of the umbilical artery with Doppler color and waveform analysis. COMPARISON: Obs. Limited, [facility] US 01/09/2021 7:28 PM FINDINGS: Umbilical cord and insertion: There are 2 umbilical arteries and 1 umbilical vein. Cord insertion on the abdominal wall is normal. Umbilical artery Doppler: There are 2 umbilical arteries, which are patent. There is normal continuous forward flow in the umbilical artery during diastole and no absent or reversed end-diastolic flow is noted. Umbilical artery peak systolic velocity: 59.4 cm/s Umbilical artery systolic to diastolic ratio: Systolic to diastolic ratio is within normal limits for age and measures 2.54. IMPRESSION: Unremarkable umbilical Doppler for age. Electronically signed by: Zachary Melissa On 01/16/2021 02:54:46 AM DD: ZACHARY MELISSA MD 01/16/21 0205 DT: KENDY 01/16/21253 DS: MIKKI 01/16/21253 [~ rep ct labl] VS,Fishbone, I+O VS, Fishbone, I+O Laboratory Tests 01/16/21 01:26 Vital Signs Date Time Temp Pulse Resp B/P (MAP) Pulse Ox O2 Delivery O2 Flow Rate FiO2 01/16/21 05:30 95 18 109/57 (74) 01/16/21 04:31 98.0 01/16/21 00:27 96 I&O- Last 24 Hours up to 6 AM 01/16/21 05:59 Intake Total 100 ml Balance 100 ml Zay Shepard MD January 16, 2021 07:11
[2021-01-16] MEDS ORDERED: RHOGAM 300 MCG (1500 IU) INJ (J2790) IM SCH (09:45)
--- NOTE | 2021-01-16 09:57 | IPNPDOC ---
Obstetrical Progress Note Date of Service January 16, 2021 Subjective Ms. Moise is a 25yo at 35+0 who presented initially for contractions and VB after intercourse. She had a US with a CL 2.7cm with no funneling and no indication of previa or abruption. Her CBC was stable from her prior. She had a KHB that was negative, she received rhogam as she was >3wk from her prior administration. Her SVE was FT/T/H by Dr. Shepard and unchanged with my exam on discharge. She notably had a sudden change in affect during her stay and there is concern that she went to the bathroom to take illicit drugs, she notably has history of use and is dependent on opioids, these behaviors are also witnessed in the office with her frequently. A UDS was performed which was negative. It may have been too soon to get UDS results, will repeat UDS at next visit. CAT I reactive NST. labor and abruption are unlikely at this time. As there are no acute issues will proceed with discharge and follow up in the office as scheduled. Educated on PTL/abruption and routine OB return precautions. Objective Vital Signs Date Time Temp Pulse Resp B/P (MAP) Pulse Ox O2 Delivery O2 Flow Rate FiO2 01/16/21 07:53 88 18 112/63 (79) 01/16/21 04:31 98.0 01/16/21 00:27 96 Assessment Heart Rate (FHR): 130 Variability: Moderate Accelerations: Positive Decelerations: None Heart Rate Tracing: Category I Tocometer Contractions: Yes Frequency: irregular Sterile Vaginal Examination Dilation: Fingertip Station: -3 Cervical Consistency: Medium Cervical Position: Posterior Postion/Presentation: Cephalic presentation (by exam) ALIZA AWAD DO January 16, 2021 09:57
== END 2021-01-16 10:52 | disposition home or self-care (01) | DRG 832 ==
LOC: M LDO 00:23 → M LDI 01:13
PROVIDERS: ADMIT Obstetrics & Gynecology; ATTEND Obstetrics & Gynecology
DX: O46.93 Antepartum hemorrhage, unspecified, third trimester (principal); O47.03 False labor before 37 completed weeks of gestation, third trimester; O99.323 Drug use complicating pregnancy, third trimester; F11.10 Opioid abuse, uncomplicated; Z3A.35 35 weeks gestation of pregnancy; O99.333 Smoking (tobacco) complicating pregnancy, third trimester; F17.210 Nicotine dependence, cigarettes, uncomplicated; Z79.899 Other long term (current) drug therapy

== ENCOUNTER 2021-01-19 14:43 | Emergency (ER) | payer OTHER ==
[~2021-01-19] VITALS: Ht 147.3 cm; Wt 129.0 kg
[~2021-01-19 14:43] MED LIST changes: +CLON0.25 PO
[2021-01-19 14:44] VITALS: BP 112/58
[2021-01-19] MEDS ORDERED: BUTA-198 (14:53)
[2021-01-19] MEDS ORDERED: FAMOTIDINE 40MG/5ML ORAL SUSPENSON 50ML BOTTLE PO ONE (16:25)
[2021-01-19] MEDS ORDERED: ACETAMINOPHEN 500 MG TAB PO ONE (16:25)
[2021-01-19] MEDS ORDERED: LIDOCAINE 4% CREAM 5GM (LMX4) TOP ONE (16:25)
[2021-01-19] MEDS ORDERED: FAMOTIDINE 20 MG TAB PO ONE (16:40)
--- NOTE | 2021-01-19 17:41 | REP ---
INDICATION: lower calf pain x 1wk, CP x 2 days, 35wks preg COMPARISON: None. TECHNIQUE: Jose scale and color Doppler evaluation bilateral lower extremities using linear high frequency transducer. FINDINGS: Ultrasound examination of the right and left lower extremity deep venous structures from the common femoral vein through the calf veins to include the peroneal, anterior and posterior tibial arteries demonstrates normal compressibility flow and wave patterns in response to respiration and augmentation. There is no evidence for deep venous thrombosis. IMPRESSION: No evidence for deep venous thrombosis. <Electronically signed by Raul Black > 01/19/21 1222
--- NOTE | 2021-01-19 20:00 | ECGEPIP ---
[facility] [place] - ED Test Date: 2021-01-19 Pat Name: MINERVA CONLEY Department: Room: - Gender: Female Phys Ther: LUIS : 1995 Requested By: RENO Reid Order Number: [id number] Reading MD: Reno Trevino Measurements Intervals [place] Rate: 74 P: 14 OR: 146 QRS: -2 QRSD: 74 T: 21 QT: 392 QTc: 435 Interpretive Statements Normal sinus rhythm Nonspecific ST-T wave abnormalities Similar to tracing done 07-08-20 Electronically Signed on 01-19-2021 20:00:04 EDT by Reno Trevino
== END 2021-01-19 17:55 | disposition home or self-care (01) ==
LOC: M ED 14:43
DX: O99.891 Other specified diseases and conditions complicating pregnancy (principal); R07.9 Chest pain, unspecified; O99.513 Diseases of the respiratory system complicating pregnancy, third trimester; J45.909 Unspecified asthma, uncomplicated; O99.333 Smoking (tobacco) complicating pregnancy, third trimester; F17.200 Nicotine dependence, unspecified, uncomplicated; Z3A.35 35 weeks gestation of pregnancy; Z79.899 Other long term (current) drug therapy; Z98.890 Other specified postprocedural states

== ENCOUNTER 2021-01-26 11:44 | Outpatient (CLI) | payer OTHER ==
[~2021-01-26] VITALS: Ht 147.3 cm; Wt 54.2 kg
[~2021-01-26 11:44] MED LIST changes: +BUTA-198
[2021-01-26 12:07] VITALS: BP 110/64
[2021-01-26 13:13] VITALS: BP 112/66
[2021-01-26] MEDS ORDERED: LOMOTIL 2.5MG/0.025MG TABLET PO ONE (13:15)
[2021-01-26] MEDS ORDERED: LR 1,000 ML IV ONE (13:15)
[2021-01-26] MEDS ORDERED: ONDANSETRON 4MG/2ML VIAL IV ONE (13:15)
[2021-01-26] MEDS ORDERED: LR 1,000 ML IV SCH (13:15)
[2021-01-26 13:45] LABS: HEMATOCRIT 38.5 % (36.0-47.0); MEAN CORPUSCULAR HGB CONC 31.2 g/dl (32.0-36.5); MEAN CORPUSCULAR VOLUME 105.8 fl (80.0-96.0); PLATELET COUNT, AUTOMATED 217 10^3/uL (150-450); RED BLOOD COUNT 3.64 10^6/uL (4.00-5.40); WHITE BLOOD COUNT 15.7 10^3/uL (4.0-10.0)
[2021-01-26 13:58] LABS: ALBUMIN 3.2 GM/DL (3.2-5.2); ALT/SGPT 14 U/L (12-78); BILIRUBIN,TOTAL 0.8 MG/DL (0.2-1.0); BLOOD UREA NITROGEN 5 MG/DL (7-18); CALCIUM LEVEL 9.1 MG/DL (8.5-10.1); CARBON DIOXIDE LEVEL 16 MEQ/L (21-32); CHLORIDE LEVEL 112 MEQ/L (98-107); CREATININE FOR GFR 0.37 MG/DL (0.55-1.30); GLOMERULAR FILTRATION RATE > 60.0 (>60); GLUCOSE, FASTING 76 MG/DL (70-100); POTASSIUM SERUM 4.6 MEQ/L (3.5-5.1); SODIUM LEVEL 139 MEQ/L (136-145)
[2021-01-26 14:04] LABS: AMPHETAMINES URINE REFLEX NEGATIVE (NEGATIVE); BARBITURATES URINE REFLEX NEGATIVE (NEGATIVE); BENZODIAZEPINES URINE REFLEX NEGATIVE (NEGATIVE); CANNABINOIDS URINE REFLEX NEGATIVE (NEGATIVE); COCAINE METABOLITE URINE REFLE NEGATIVE (NEGATIVE); METHADONE URINE REFLEX NEGATIVE (NEGATIVE); OPIATES URINE REFLEX NEGATIVE (NEGATIVE); PHENCYCLIDINE URINE REFLEX NEGATIVE (NEGATIVE)
--- NOTE | 2021-01-26 14:27 | IPNPDOC ---
Obstetrical Progress Note Date of Service Jan 26, 2021 Subjective 25 at 36w3d with KARINA 20 FEB 2021 presents to L&D with complaints of low back pain, diarrhea x2 days, and 1 episode of nausea/vomiting today. She reports that nausea/vomiting has resolved. She reports facundo de guzman contractions. She denies leaking of fluid, vaginal bleeding, and reports positive movement. Objective Vital Signs Date Time Temp Pulse Resp B/P (MAP) Pulse Ox O2 Delivery O2 Flow Rate FiO2 01/26/21 12:07 98.7 100 20 110/64 (79) No CVAT Assessment Heart Rate (FHR): 135 Variability: Moderate Accelerations: Present Decelerations: None Tocometer Contractions: Yes Frequency: irregular Sterile Vaginal Examination Dilation: Fingertip Effacement (%): 50% Station: -3 Cervical Consistency: Medium Cervical Position: Posterior Postion/Presentation: Cephalic presentation Assessment and Plan Age: 25 : 5 Term: 2 Pre-term: 1 Abortions: 1 Livin Weeks & Days 36w3d Status: Reassuring Anticipate: Other (Discharge to home, certified not in labor) Additional Comments Assessment: Diarrhea Dehydration Plan: Recommended to increase hydration with 3-4 liters of water per day Recommended to eat small portions every 2-3 hours Prescriptions given for Flexeril and Lomotil Recommended for follow up in clinic at [facility] in 1 weeks [facility] and PTL precautions discussed Return to L&D if symptoms worsen or persist 20 minutes of time spent with the patient for assessment, diagnosis, and to discuss the plan of care for discharge THOMAS LUNDBERG CNM Jan 26, 2021 14:27
[2021-01-26] MEDS ORDERED: FAMOTIDINE INJ 20MG/2ML VIAL (S0028 PER 1) IVP ONE (15:00)
== END 2021-01-26 14:53 | disposition home or self-care (01) ==
LOC: M LDO 11:44
PROVIDERS: ATTEND Registered Nurse Maternal Newborn
DX: O26.893 Other specified pregnancy related conditions, third trimester (principal); R19.7 Diarrhea, unspecified; Z3A.36 36 weeks gestation of pregnancy; M54.5 Low back pain; O21.8 Other vomiting complicating pregnancy; O99.283 Endocrine, nutritional and metabolic diseases complicating pregnancy, third trimester; E86.0 Dehydration
CPT/HCPCS: 59025; 80053; 80307; 81001; 85027; 87086; 96374; 96375; G0378; G0463

== ENCOUNTER 2021-02-07 13:39 | Inpatient (IN) | payer OTHER ==
[2021-02-07] VITALS (24 sets, daily range): BP systolic 91–123; BP diastolic 51–77
[~2021-02-07] VITALS: Ht 147.3 cm; Wt 57.7 kg
[~2021-02-07 13:39] MED LIST changes: +ERGO500029 PO; -VITA50005 PO
[2021-02-07] MEDS ORDERED: OXYTOCIN INJ 10 UNITS/ML VIAL (J2590) IV PRN (14:15)
[2021-02-07] MEDS ORDERED: OXYTOCIN DRIP 30 UNITS in IV 1 EA IV PRN ×6 (14:15)
[2021-02-07] MEDS ORDERED: METHYLERGONOVINE MALEATE 0.2 MG/ML VIAL (J2210) IM PRN (14:15)
[2021-02-07] MEDS ORDERED: TRANEXAMIC ACID INJection 1,000 MG in NS 100 ML IV PRN (14:15)
[2021-02-07] MEDS ORDERED: OXYTOCIN DRIP 30 UNITS in IV 1 EA IV SCH (14:15)
[2021-02-07] MEDS ORDERED: CARBOPROST TROMETHAMINE 250 MCG/ML AMP IM PRN (14:15)
[2021-02-07] MEDS ORDERED: OXYTOCIN INJ 10 UNITS/ML VIAL (J2590) IM PRN (14:15)
--- NOTE | 2021-02-07 14:27 | HPEPDOC ---
Obstetrical History & Physical General Date of Admission Feb 07, 2021 at 13:39 History of Present Illness Mrs. Leanne Moise is a 25yo at 38w1d ega, by LMP c/w st trimester ultrasound, with PNC c/b Opioid Dependence, Bipolar Disorder with Psychosis, Asthma, Rhesus Negative, Anemia, Varicella Non-Immune who was found to have oligohydramnios at today's appointment. Mrs. Moise denies Contractions, Leakage Of Fluid & Vaginal Bleeding. She endorses + Movements. Chief Complaint: Induction of labor Information Provided By: Patient Age: 25 : 5 Term: 3 Pre-term: 0 Abortions: 1 Livin Care Care: Good Care Number of Visits: 16 Dating Final EDC: Feb 20, 2021 Final EDC for Daily Update: Feb 20, 2021 Final EDC by: LMP LMP: May 16, 2020 Weeks + Days: 38 Estimated Date of Confinement: Feb 20, 2021 EGA at Admission: 38 Antepartum Course Diagnos(e)s Opioid Dependence Bipolar Disorder Asthma Smoker Varicella Non-Immune Anemia History of Pyelonephritis Height (inches): 58 Pre- weight (lbs.): 100.8 Admission Weight (lbs.): 126.2 Change in Weight (lbs.): 25.4 Past Medical History Past Obstetrical History #1: Past Obstetrical History: Primgravida (2011) Gestation: 36 Type of Delivery: Spontaneous Vaginal Del. Weight of (grams): 3200 Complications: No Past Obstetrical History #2: Past Obstetrical History: Multigravida (2014) Gestation: 36 Type of Delivery: Spontaneous Vaginal Del. Complications: No Past Obstetrical History #3: Past Obstetrical History: Multigravida (2015) Complications: Yes (SAB) Past Obstetrical History #4: Past Obstetrical History: Multigravida (2018) Gestation: 37 Type of Delivery: Spontaneous Vaginal Del. Weight of (grams): 2800 Complications: No BED LASTER History: No pertinent history Past Medical History Surgical History: Denies/None Family History Significant Family History: No pertinent family hx Social History Marital Status: Family situation: Spouse/partner home Psychosocial History: Bipolar * Smoker: current smoker Alcohol: Denies Drugs: other Abuse Violence Screening Have you been hit/kicked/slapp: No Have you been sexually assault: No Imunizations Tdap status: current Influenza Status: current Allergies Coded Allergies: No Known Allergies (Unverified , 02/07/21) Medications Scheduled Clonazepam (Clonazepam) 0.5 Mg Tab.rapdis, 0.5 MG PO BID Ferrous Sulfate (Ferrous Sulfate) 325 Mg Tablet.dr, 325 MG PO BID Quetiapine Fumarate (Seroquel) 100 Mg Tablet, 100 MG PO QPM Scheduled PRN Tramadol HCl (Tramadol HCl) 50 Mg Tablet, 50 MG PO QID PRN for PAIN Miscellaneous Medications Ferrous Sulfate (Ferrous Sulfate) 325 Mg Tablet.dr, 325 MG PO Quetiapine Fumarate (Quetiapine Fumarate) 100 Mg Tablet Physical Examination Physical Examination GENERAL: Alert and oriented times three. ABDOMEN: Gravid and non-tender to touch. FETUS: Is vertex (VTX) by sterile vaginal examination (SVE), fetus is vertex (VTX) by Mo. SVE: 3/5-/0. HEART RATE: Regular rate and rhythm. LUNGS: Clear to auscultation (CTA). EXTREMITIES: No edema. Laboratory Data 24H LABS Laboratory Tests 2 02/07/21 13:53: Serology Scanned Report Hepatitis B Testing Urine Culture: No Growth, Contaminated Pertinent Laboratoy Data Blood Type: A- RBC Antibody Screen: Negative HIV: Negative Hepatitis B: Negative Hepatitis C: Negative Rapid Plasma Reagin: Nonreactive Rubella: Immune Varicella: Nonreactive Chlamydia/Gonorrhea: Negative Group B Streptococcus: Negative Anatomy Ultrasound Ultrasound Date: Nov 16, 2020 Placenta Location: Fundal Normal Anatomy: Yes Placenta Previa: No Estimated Weight (grams): 803 Steroid Therapy Steroid Therapy: No Vaginal Examination Dilation: 3 cm Effacement: 50% Station: -1, 0 Cervical Consistency: Medium Cervical Position: Posterior Presentation: Cephalic presentation Assessment Heart Rate (FHR): 130 Variability: Moderate Accelerations: Positive Decelerations: None Tocometer Contractions: Yes Frequency: irregular Duration: less than 60 seconds Strength: palpated as mild Assessment/Plan Assessment Mrs. Moise is a 25yo at 38w1d ega with multiple PNCs who was found to have oligohydramnios and sent to L&D for IOL. Plan Admit and orient. Do All Operator and consent. Diet: Clear liquid diet. Group B Streptococcus (GBS) negative. Labs and intravenous (IV) per unit protocol. Counseled on Pitocin and induction of labor (IOL). Lactated Ringers (LR): Bolus 999mL, then at 125mL/hr. Anticipate normal spontaneous delivery (). C-S as appropriate. Continue Seroquel and Tramadol DEREK GREENWOOD M.D. Feb 07, 2021 14:27
[2021-02-07] MEDS ORDERED: SERO1TAB PO (14:43)
[2021-02-07] MEDS ORDERED: CLON0.5T17 PO (14:43)
[2021-02-07] MEDS ORDERED: FERR325T3 PO ×2 (14:43)
[2021-02-07] MEDS: LR 1,000 ML IV SCH ×2 (15:36→23:18)
[2021-02-07] MEDS: traMADol 50 MG TAB PO PRN (17:16)
[2021-02-07 17:25] LABS: HEMATOCRIT 33.6 % (36.0-47.0); HEMOGLOBIN 10.8 g/dl (12.0-15.5); MEAN CORPUSCULAR HEMOGLOBIN 33.4 pg (27.0-33.0); MEAN CORPUSCULAR HGB CONC 32.1 g/dl (32.0-36.5); PLATELET COUNT, AUTOMATED 206 10^3/uL (150-450); RED BLOOD COUNT 3.23 10^6/uL (4.00-5.40); WHITE BLOOD COUNT 12.6 10^3/uL (4.0-10.0)
[2021-02-07] MEDS ORDERED: FENTANYL 2MCG/ML ROPIVACAINE 0.2% IN 0.9% NACL 100ML IVBAG As Ordered ONE (20:52)
[2021-02-07] MEDS: clonazePAM 0.5 MG TAB PO SCH (21:00)
[2021-02-07] MEDS: QUEtiapine FUMARATE 100 MG TAB PO SCH (21:00)
--- NOTE | 2021-02-07 22:48 | IPNPDOC ---
Text Note Date of Service The patient was seen on 02/07/21. NOTE Item Value Date Time White Blood Count 12.6 10^3/uL H 02/07/21 1554 Red Blood Count 3.23 10^6/uL L 02/07/21 1554 Hemoglobin 10.8 g/dl L 02/07/21 1554 Hematocrit 33.6 % L 02/07/21 1554 Mean Corpuscular Volume 104.0 fl H 02/07/21 1554 Mean Corpuscular Hemoglobin 33.4 pg H 02/07/21 1554 Mean Corpuscular Hemoglobin Concent 32.1 g/dl 02/07/21 1554 Red Cell Distribution Width 15.3 % H 02/07/21 1554 Platelet Count 206 10^3/uL 02/07/21 1554 2240 post epidural admitted IOL for oligohydramnios AT 38.1 WEEKS RISK FACTORS BIPOLAR SMOKER OPIOID DEPENDANCE PRESENTLY ON 10 MUNITS PITOCIN CERVICAL EXAMINATION 3 CM POSTERIOR 50% EFFACED -3 STATION SLIGHT DEFLECTION AROM SMALL AMOUNT CLEAR FLUID CATEGORY 1 STRIP SAFE TO PROCEED VS,Fishbone, I+O VS, Fishbone, I+O Laboratory Tests 02/07/21 15:54 Vital Signs Date Time Temp Pulse Resp B/P (MAP) Pulse Ox O2 Delivery O2 Flow Rate FiO2 02/07/21 21:12 79 18 107/77 (87) 02/07/21 19:35 97.0 Zay Shepard MD Feb 07, 2021 22:45
[2021-02-07] MEDS ORDERED: ePHEDrine SULFATE 25 MG/5 ML(5MG/ML) SYRINGE As Ordered ONE (23:10)
[2021-02-07] MEDS: ePHEDrine SULFATE 25 MG/5 ML(5MG/ML) SYRINGE IV PRN ×3 (23:12→23:23)
[2021-02-07] MEDS ORDERED: REFRIGERATOR IV KEYS XX PRN (23:45)
[2021-02-07] MEDS ORDERED: ONDANSETRON 4MG/2ML VIAL IV PRN (23:45)
[2021-02-07] MEDS ORDERED: LACTATED RINGER'S 1000 ML IV PRN (23:45)
[2021-02-07] MEDS ORDERED: NALOXONE INJ 0.4MG/1ML VIAL (J2310 PER 1MG) IV PRN (23:45)
[2021-02-07] MEDS ORDERED: EPIDURAL COMMENT XX SCH (23:45)
[2021-02-07] MEDS ORDERED: diphenhydrAMINE 50MG/ML VIAL (J1200) IV PRN (23:45)
[2021-02-07] MEDS ORDERED: FENTANYL/ROPIVACAINE/NACL BAG 100 ML EPIDURAL SCH (23:45)
[2021-02-07] MEDS ORDERED: EPIDURAL/PCA KEYS XX PRN (23:45)
[2021-02-08] VITALS (20 sets, daily range): BP systolic 87–125; BP diastolic 51–69
[2021-02-08 00:05] LABS: AMPHETAMINES URINE REFLEX NEGATIVE (NEGATIVE); BARBITURATES URINE REFLEX NEGATIVE (NEGATIVE); BENZODIAZEPINES URINE REFLEX NEGATIVE (NEGATIVE); CANNABINOIDS URINE REFLEX NEGATIVE (NEGATIVE); COCAINE METABOLITE URINE REFLE NEGATIVE (NEGATIVE); METHADONE URINE REFLEX NEGATIVE (NEGATIVE); OPIATES URINE REFLEX NEGATIVE (NEGATIVE); PHENCYCLIDINE URINE REFLEX NEGATIVE (NEGATIVE)
[2021-02-08] MEDS: LR 1,000 ML IV SCH (01:24)
[2021-02-08 04:47] LABS: CORD GAS ABE A -5.5; CORD GAS ABE V -4.2; CORD GAS HCO3 A 23.6 MEQ/L; CORD GAS HCO3 V 21.7 MEQ/L; CORD GAS O2 SAT A 40.5 %; CORD GAS O2 SAT V 72.1 %; CORD GAS PCO2 A 62.1 mmHg; CORD GAS PCO2 V 42.4 mmHg; CORD GAS PH A 7.197 UNITS; CORD GAS PH V 7.326 UNITS; CORD GAS PO2 A 20.3 mmHg; CORD GAS PO2 V 30.9 mmHg; CORD GAS SBC A 18.8 MEQ/L; CORD GAS SBC V 20.5 MEQ/L; CORD GAS TCO2 A 25.5 MEQ/L
[2021-02-08] MEDS ORDERED: ACETAMINOPHEN TAB 650MG DOSE (2X325MG) PO PRN (05:00)
[2021-02-08] MEDS ORDERED: METHYLERGONOVINE MALEATE 0.2 MG TAB PO PRN (05:00)
[2021-02-08] MEDS ORDERED: RHOGAM 300 MCG (1500 IU) INJ (J2790) IM SCH (05:00)
[2021-02-08] MEDS ORDERED: MEASLES,MUMPS,RUBELLA VACCINE INJ (MMR-II) (90707) SC SCH (05:00)
[2021-02-08] MEDS ORDERED: ANUSOL HC CREAM 30GM TOP PRN (05:00)
[2021-02-08] MEDS ORDERED: DOCUSATE SODIUM 100MG CAPSULE PO PRN (05:00)
[2021-02-08] MEDS ORDERED: MOM 30ML SUSPENSION UDC PO PRN (05:00)
[2021-02-08] MEDS ORDERED: DIBUCAINE 1% OINTMENT 30GM TOP PRN (05:00)
[2021-02-08] MEDS: PRENATAL VITAMINS CHEWABLE TABLET PO SCH (08:08)
[2021-02-08] MEDS: traMADol 50 MG TAB PO PRN ×3 (08:08→20:24)
[2021-02-08] MEDS: clonazePAM 0.5 MG TAB PO SCH ×2 (08:28→21:42)
--- NOTE | 2021-02-08 09:22 | IPN ---
PROGRESS NOTE DATE: 02/08/2021 SUBJECTIVE: This lady requested circumcision of her male after discussing risks and benefits of circumcision, medical and non-medical indications of a penile block and aftercare, expressed understanding of penile block, aftercare and bleeding, signed the consent form, all questions were answered, a 20 minute discussion. We await clearance by the yield improvement engineer.
[2021-02-08] MEDS: IBUPROFEN 600MG TAB PO PRN ×2 (12:13→20:24)
[2021-02-08] MEDS: ACETAMINOPHEN 500 MG TAB PO PRN (17:24)
[2021-02-08] MEDS ORDERED: ONDANSETRON 4MG/2ML VIAL IV PRN (18:05)
--- NOTE | 2021-02-08 21:35 | DN ---
DELIVERY NOTE DATE OF DELIVERY: 02/07/2021 TIME OF : GENDER: Male APGARS: 8 and 9 LACERATIONS: ANESTHESIA: ESTIMATED BLOOD LOSS: COUNTS: DESCRIPTION OF DELIVERY: This lady is a 25-year-old 5, now para 4, who was admitted at 38 and 1 weeks of gestation for induction of labor because of oligohydramnios after she had been seen at the center. She had an epidural in place and delivered a live male infant weighing 7 pounds 4 ounces (3290 grams). Apgars of 8 and 9 at 1 and 5 minutes respectively. Cord around the neck x1. Arterial pH 7.19, base excess -5.5; venous pH 7.32, base excess -4.2. She has a perineum which is intact. The placenta delivered spontaneously thereafter, three vessel cord. Uterus contracted well down on Pitocin. Examination of the anterior, posterior and lateral scott was intact. Sphincter was tight. Uterus is still well contracted under Pitocin. Risks factors for this lady include that she has opioid dependence, bipolar disorder with psychosis, asthma, anemia, smoker and she has had pyelonephritis in the past. IN SUMMARY: I have a 38 and 1 week gestation admitted for induction of labor because of oligohydramnios, who delivered a live male .
[2021-02-08] MEDS: QUEtiapine FUMARATE 100 MG TAB PO SCH (21:42)
[2021-02-09] MEDS: traMADol 50 MG TAB PO PRN ×3 (02:40→15:01)
[2021-02-09] MEDS: IBUPROFEN 600MG TAB PO PRN ×2 (02:40→09:23)
[2021-02-09 06:06] VITALS: BP 116/68
--- NOTE | 2021-02-09 06:47 | IPNPDOC ---
Progress Note Date of Service: Feb 09, 2021 Day#: 1 Progress Note SUBJECT: Mrs. Leanne Moise is a 25yo who is now PPD#1 s/p an unc omplicated vaginal delivery productive of a viable male infant weighing 3290- grams with APGARS 8/9 on 08 February 2021. This morning, Mrs. Moise is doing well. She reports that her pain is well controlled; her lochia is diminishing; she is ambulating without difficulty; is voiding spontaneously; and is passing flatus. She is bottle feeding and would like the Mirena IUD for contraception. OBJECTIVE: VITAL SIGNS: Within normal limits, afebrile. GEN: Alert and oriented times three. PULM: Breath sounds clear to auscultation. CV: Heart rate: Regular rate and rhythm, no murmurs, rubs or gallops. Abdomen: Fundus firm at U-2. Soft, NTTP. ASSESSMENT: Mrs. Moise is a 25yo G4 now P3013 status post uncomplicated spontaneous vaginal delivery after presenting for an Induction of Labor who delivered on 08 Feb 2021. Patient is doing well on day 1. Vitals within normal limits, afebrile, hemodynamically stable with no evidence of infection. PLAN: 1. Tylenol and Motrin for pain. 2. Encourage breast feeding and ambulation. 3. Continue home medications, as prescribed. 4. Mirena IUD for contraception. - To be placed at 6-week PP visit 5. Routine PP visit in 6 weeks in clinic. 6. Discussed return precautions at length. VS, I&O, 24H, Fishbone Vital Signs/I&O Vital Signs Date Time Temp Pulse Resp B/P (MAP) Pulse Ox O2 Delivery O2 Flow Rate FiO2 02/09/21 06:06 97.5 86 18 116/68 (84) 02/09/21 03:10 Room Air 02/08/21 17:51 100 I&O- Last 24 Hours up to 6 AM 02/09/21 06:00 Output Total 800 ml Balance -800 ml DEREK GREENWOOD M.D. Feb 09, 2021 06:47
[2021-02-09 07:50] LABS: HEMATOCRIT 32.4 % (36.0-47.0); HEMOGLOBIN 10.3 g/dl (12.0-15.5); MEAN CORPUSCULAR HEMOGLOBIN 33.1 pg (27.0-33.0); MEAN CORPUSCULAR HGB CONC 31.8 g/dl (32.0-36.5); MEAN CORPUSCULAR VOLUME 104.2 fl (80.0-96.0); PLATELET COUNT, AUTOMATED 183 10^3/uL (150-450); RED BLOOD COUNT 3.11 10^6/uL (4.00-5.40); WHITE BLOOD COUNT 11.6 10^3/uL (4.0-10.0)
[2021-02-09] MEDS: PRENATAL VITAMINS CHEWABLE TABLET PO SCH (09:00)
[2021-02-09] MEDS: clonazePAM 0.5 MG TAB PO SCH (09:00)
[2021-02-09] MEDS: ACETAMINOPHEN 500 MG TAB PO PRN (15:01)
== END 2021-02-09 15:55 | disposition home or self-care (01) | DRG 807 ==
LOC: M LDI 13:39 → M OBS 02-08 07:43
PROVIDERS: ADMIT Obstetrics & Gynecology; ATTEND Obstetrics & Gynecology
PROC: 10E0XZZ Delivery of Products of Conception, External Approach (ICD-10-PCS; principal; 2021-02-07)
PROC: 3E033VJ Introduction of Other Hormone into Peripheral Vein, Percutaneous Approach (ICD-10-PCS; 2021-02-07)
PROC: 10907ZC Drainage of Amniotic Fluid, Therapeutic from Products of Conception, Via Natural or Artificial Opening (ICD-10-PCS; 2021-02-07)
DX: O41.03X0 Oligohydramnios, third trimester, not applicable or unspecified (principal); Z37.0 Single live birth; Z3A.38 38 weeks gestation of pregnancy; O99.344 Other mental disorders complicating childbirth; F31.9 Bipolar disorder, unspecified; O99.52 Diseases of the respiratory system complicating childbirth; J45.909 Unspecified asthma, uncomplicated; O99.334 Smoking (tobacco) complicating childbirth; F17.210 Nicotine dependence, cigarettes, uncomplicated; O99.02 Anemia complicating childbirth; D64.9 Anemia, unspecified

== ENCOUNTER → 2021-03-14 | Outpatient (CLI) | payer OTHER ==
[~2021-03-14] MED LIST changes: +CLON0.5T17 PO; +FERR325T3 PO; +SERO1TAB PO
--- NOTE | 2021-03-15 23:34 | ECWPNPC ---
PATIENT NAME: MINERVA CONLEY : 1995 GENDER: FEMALE VISIT DATE: 03/14/2021 DISCHARGE DATE: 03/14/21 1007 VISIT LOCKED DATE TIME: PHYSICIAN: EVERTON ZARAGOZA RESOURCE: EVERTON ZARAGOZA REASON FOR APPOINTMENT 1. MED MANAGEMENT/WANTS PROCEDURE HISTORY OF PRESENT ILLNESS GENERAL: HPI 25-YEAR-OLD FEMALE IN FOR CHRONIC PAIN FOLLOW-UP. SHE RATES HER PAIN CURRENTLY AT A 7 OUT OF 10 AND DESCRIBES IT ACHING, CONTINUOUS, SHARP, AND STABBING. PATIENT FEELS HER MEDICATIONS ARE HELPFUL AND DENIES MED SIDE EFFECTS AT THIS TIME. PATIENT DOES ADMIT TO A VERY SENSITIVE RAISED AREA ON HER LEFT SHOULDER THAT HAS BEEN THERE FOR APPROXIMATELY THE PAST 2 MONTHS.. -. FALL RISK SCREENING: SCREENING OVER A DOZEN FALLS REPORTED IN THE LAST YEAR WITH INJURY. PATIENT SOUGHT IMMEDIATE MEDICAL TREATMENT.. PAIN SCREENING: PATIENT HAS A COMPLAINT OF ACUTE OR CHRONIC PAIN :YES LOCATION OF PAIN:NECK, BOTH SHOULDERS, UPPER BACK, LOW BACK INTENSITY OF PAIN (SCALE OF 1 TO 10):7 WHAT DOES YOUR PAIN FEEL LIKE:ACHING, CONTINOUS, SHARP, STABBING, TENDER, THROBBING DURATION:CONTINOUS, CONSTANT, AWAKENS FROM SLEEP PAIN IS INCREASED BY:ACTIVITIES, PROLONGED STANDING PAIN IS DECREASED BY:USE OF PAIN MEDICATIONS, SITTING NURSING NOTE: -. PAIN CENTER INTAKE QUESTIONS: DO YOU HAVE A HISTORY OF MRSA? :NO DO YOU TAKE A BLOOD THINNERS? :NO DO YOU HAVE ANY BLEEDING DISORDERS? :NO ANY NEW NUMBNESS OR WEAKNESS IN YOUR LEGS OR ARMS? :YES WEAKNESS BILATERAL LEGS ANY PACEMAKER,DEFIBRILLATOR, OR DORSAL COLUMN STIMULATOR? :NO DO YOU HAVE ANY RASHES OR OPEN SORES? :NO ARE YOU ALLERGIC TO IV DYE? :NO ARE YOU DIABETIC? :NO ANY NEW PROBLEMS WITH YOUR MEDICATIONS? :NO HAVE YOU RECEIVED A VACCINE IN THE PAST 30 DAYS? :NO DO YOU PLAN TO RECEIVE A VACCINE IN THE NEXT 21 DAYS? :NO DO YOU NEED ANY PRESCRIPTION? :NO DO YOU TAKE ANY IMMUNOSUPPRESSIVE MEDICATIONS? :NO DO YOU HAVE ANY KIDNEY OR LIVER DISEASE? :NO IS THERE A CHANCE YOU COULD BE ? :NO ARE YOU BREAST FEEDING? :NO CURRENT MEDICATIONS TAKING IRON 325 (65 FE) MG TABLET 1 TABLET ORALLY ONCE A DAY TAKING TRAMADOL HCL 50 MG TABLET 1 TABLET NEEDED ORALLY FOUR TIMES DAILY NEEDED TAKING OLANZAPINE 2.5 MG TABLET 1 TABLET ORALLY ONCE A DAY TAKING IBUPROFEN 1 TAB ORAL TAKING TYLENOL 325 MG TABLET 1 TABLET NEEDED ORALLY EVERY 4 HRS NOT-TAKING HYDROCODONE-ACETAMINOPHEN 5-325 MG TABLET 1 TABLET NEEDED ORALLY EVERY 6 HRS NOT-TAKING HYDROCODONE-ACETAMINOPHEN 7.5-325 MG TABLET 1 TABLET NEEDED ORALLY EVERY 6 HRS NOT-TAKING FLEXERIL 10 MG 30 10 MG TABLETS ONE TABLET ORALLY EVERY 8 HOURS PRN PAIN, NOTES: LAST DOSE 03/07/2021 NOT-TAKING BACLOFEN 5 MG TABLET 1 TABLET WITH FOOD OR MILK ORALLY THREE TIMES A DAY PRN NOT-TAKING VITAMIN 27-0.8 MG TABLET 1 TABLET ORALLY ONCE A DAY NOT-TAKING SEROQUEL XR 150 MG TABLET EXTENDED RELEASE 24 HOUR 1 TABLET IN THE EVENING ORALLY ONCE A DAY NOT-TAKING EFFEXOR TABLET ORALLY MEDICATION LIST REVIEWED AND RECONCILED WITH THE PATIENT PAST MEDICAL HISTORY ASTHMA ALLERGIES N.K.D.A. SOCIAL HISTORY GENERAL: TOBACCO USE ARE YOU A:USES TOBACCO IN OTHER FORMS VAPE SMOKING CESSATION INFORMATION GIVEN03/14/2021 [facility] LATEX QUESTIONNAIRE LATEX ALLERGY : HAVE YOU EVER DEVELOPED ANY TYPE OF REACTION AFTER HANDLING LATEX PRODUCTS SUCH RUBBER GLOVES, CONDOMS, DIAPHRAGMS, BALLOONS, SOCKS, OR UNDERWEAR?YES REACTION TO LATEX CONDOMS LATEX ALLERGY : HAVE YOU EVER DEVELOPED ANY TYPE OF REACTION DURING OR AFTER DENTAL APPOINTMENT, VAGINAL/RECTAL EXAMINATION, SURGICAL PROCEDURE, OR ANY OTHER EXPOSURE?NO LATEX RISK : HAVE YOU EVER HAD ANY DIFFICULTY BREATHING OR HIVES AFTER EATING OR HANDLING ANY FRUITS, OR VEGETABLES; SUCH KIWI, BANANAS, STONE FRUITS, OR CHESTNUTSNO LATEX RISK : ARE YOU FREQUENTLY EXPOSED TO LATEX PRODUCTS IN YOUR OCCUPATION?NO DATE ASKED : 03/14/2021 ALCOHOL USE: NO. ALCOHOL SCREENING DID YOU HAVE A DRINK CONTAINING ALCOHOL IN THE PAST YEAR?NO POINTS0 INTERPRETATIONNEGATIVE RECREATIONAL DRUG USE DRUG USE?NO LEARNING BARRIERS / SPECIAL NEEDS CHANGE FROM LAST VISIT?NO BARRIERS TO LEARNING?NO HEARING IMPAIRED?NO VISION IMPAIRED?NO COGNITIVELY IMPAIRED?NO READINESS TO LEARN?YES LEARNING PREFERENCES?NO LEARNING CAPABILITIES PRESENT?YES EMOTIONAL BARRIERS?YES BORDERLINE PERSONALITY DISORDER, PTSD, BIPOLAR, ANXIETY SPECIAL DEVICES?NO ORCHID WORKER NEEDED?NO DOMESTIC VIOLENCE DO YOU FEEL SAFE IN YOUR ENVIRONMENT?YES - HAS THE PATIENT BEEN EDUCATED REGARDING HIS/HER PLAN OF CARE?YES HAS THE PATIENT BEEN EDUCATED REGARDING PAIN, THE RISK FOR PAIN, THE IMPORTANCE OF EFFECTIVE PAIN MANAGEMENT, AND THE PAIN ASSESSMENT PROCESS?YES ADVANCE DIRECTIVE ADVANCE DIRECTIVE DISCUSSED WITH PATIENT:NO REVIEW OF SYSTEMS CONSTITUTIONAL: ANY RECENT FEVER NO . CHILLS NO . WEIGHT CHANGE OF UNKNOWN REASONS NO . GASTROENTEROLOGY: NEW UNEXPLAINABLE CHANGES IN BOWEL CONTROL NO . CONSTIPATION NO . GENITOURINARY: ANY NEW CHANGE IN BLADDER CONTROL? NO . NEUROLOGY: NEW ONSET DIZZINESS OR NEUROLOGICAL CHANGES NOT MENTIONED NO . NEW NUMBNESS OR PAIN PATTERNS NOT MENTIONED AND PERTINENT TO TODAY'S VISIT NO . CARDIOLOGY: NEW CHEST PRESSURE NO . PATIENT DENIES NO . RESPIRATORY: UNEXPLAINABLE COUGH NO . NEW SHORTNESS OF BREATH NO . VITAL SIGNS WT 113.4 LBS, HT 58 IN, BMI 23.70 INDEX, BP 120/75 MM HG, HR 96 /MIN, RR 16 /MIN, TEMP 98.0 F, OXYGEN SAT % 96%, SAFE IN ENV? (Y/N) YES, NA INITIALS [place] 09:32, REVIEWED BY: JEANNETTE LIMON MA. EXAMINATION GENERAL EXAMINATION: GENERALNO ACUTE DISTRESS, WELL NOURISHED AND HYDRATED. PSYCHAPPROPRIATE MOOD AND AFFECT . NECK:RAISED SWOLLEN AREA NOTED ON LEFT SHOULDER AND ALONG CERVICAL SPINE, SURROUNDING SKIN SHOWS NO ERYTHEMA, ECCHYMOSIS, INCREASED WARMTH, AND/OR SKIN ERUPTIONS NOTED.. LUNGS:CLEAR TO AUSCULTATION BILATERALLY, NO WHEEZES, RHONCHI, RALES. HEART:NO MURMURS, REGULAR RATE AND RHYTHM. ASSESSMENTS CERVICALGIA - M54.2 (PRIMARY) TREATMENT [facility] MRI C SPINE W/O FOLL BY [id number] NOTES: 25-YEAR-OLD FEMALE IN FOR CHRONIC PAIN FOLLOW-UP. GIVEN PRESENTING SYMPTOMS, RESULTS OF PHYSICAL EXAMINATION, AND DISCUSSION WITH DR. LAWLER FROM RADIOLOGY RECOMMEND MRI OF THE CERVICAL SPINE WITH/WITHOUT CONTRAST POST IMAGING FOLLOW-UP. PATIENT HAS EXPRESSED UNDERSTANDING OF AND WAS IN AGREEMENT WITH TREATMENT PLAN. GIVEN TIME ASKED QUESTIONS AND EXPRESS CONCERNS. ISTOP REGISTRY REVIEWED AND DEMONSTRATES COMPLLIANCE. (REF # ) BRINGS IN MEDICATIONS WHICH IS APPROPRIATE FOR WHAT WAS DISPENSED. RECENT URINE TOXICOLOGY REVIEWED. NO UNAUTHORIZED MEDICATIONS. NO ILLICIT SUBSTANCES AND PRESCRIBED MEDICATIONS WERE PRESENT. PROCEDURE CODES [id number] ESTABILISHED PATIENT [facility] CHARGE DISPOSITION & COMMUNICATION FOLLOW UP POST IMAGING (REASON: MRI OF THE CERVICAL SPINE WITH CONTRAST) ELECTRONICALLY SIGNED BY JORGE L BHARDWAJ ON 03/15/2021 AT 08:46 AM EDT DISCLAIMER : THIS IS A VISIT SUMMARY EXTRACTED FROM THE [employer] CHART. IT IS NOT A COPY OF THE [employer] PROGRESS NOTE. [facility]
== END ==
LOC: M PAIN 09:30
PROVIDERS: ATTEND Family Medicine
DX: M54.2 Cervicalgia (principal); J45.909 Unspecified asthma, uncomplicated; Z79.1 Long term (current) use of non-steroidal anti-inflammatories (NSAID); Z79.891 Long term (current) use of opiate analgesic; Z79.899 Other long term (current) drug therapy; F17.290 Nicotine dependence, other tobacco product, uncomplicated

== ENCOUNTER 2021-04-04 11:31 | Emergency (ER) | payer OTHER ==
[~2021-04-04] VITALS: Ht 147.3 cm; Wt 50.9 kg
[~2021-04-04 11:31] MED LIST changes: +QUET1TAB17; -QUET25TA3
[2021-04-04 14:14] LABS: RSV AMPLIFICATION NEGATIVE (NEGATIVE)
[2021-04-04 14:41] VITALS: BP 126/76
== END 2021-04-04 14:44 | disposition home or self-care (01) ==
LOC: M ED 11:31
DX: J06.9 Acute upper respiratory infection, unspecified (principal); J45.909 Unspecified asthma, uncomplicated; F17.200 Nicotine dependence, unspecified, uncomplicated

== ENCOUNTER 2021-04-08 13:29 | Emergency (ER) | payer OTHER ==
[~2021-04-08] VITALS: Ht 147.3 cm; Wt 51.9 kg
[2021-04-08] MEDS ORDERED: DICL1GEL3 (14:28)
[2021-04-08] MEDS ORDERED: MIRE1IUD (14:28)
[2021-04-08] MEDS ORDERED: GABA-1171 (14:28)
[2021-04-08] MEDS ORDERED: BACL10TA2 (14:28)
[2021-04-08 14:56] LABS: BASO % 0.4 % (0.0-1.0); EOS # 0.1 10^3/uL (0.0-0.5); EOS % 1.6 % (0.0-3.0); HEMATOCRIT 30.3 % (36.0-47.0); HEMOGLOBIN 9.7 g/dl (12.0-15.5); LYMPH # 1.9 10^3/uL (1.5-5.0); LYMPH % 27.1 % (24.0-44.0); MEAN CORPUSCULAR HEMOGLOBIN 30.5 pg (27.0-33.0); MEAN CORPUSCULAR VOLUME 95.3 fl (80.0-96.0); MONO # 0.5 10^3/uL (0.0-0.8); MONO % 6.8 % (2.0-8.0); NEUTROPHILS # 4.3 10^3/uL (1.5-8.5); NEUTROPHILS % 63.1 % (36.0-66.0); PLATELET COUNT, AUTOMATED 319 10^3/uL (150-450); RED BLOOD COUNT 3.18 10^6/uL (4.00-5.40); WHITE BLOOD COUNT 6.9 10^3/uL (4.0-10.0)
[2021-04-08 15:19] LABS: ALBUMIN 3.2 GM/DL (3.2-5.2); ALT/SGPT 20 U/L (12-78); BILIRUBIN,DIRECT < 0.1 MG/DL (0.0-0.2); BILIRUBIN,TOTAL 0.3 MG/DL (0.2-1.0); BLOOD UREA NITROGEN 6 MG/DL (7-18); CALCIUM LEVEL 8.5 MG/DL (8.5-10.1); CARBON DIOXIDE LEVEL 26 MEQ/L (21-32); CHLORIDE LEVEL 113 MEQ/L (98-107); CREATININE FOR GFR 0.51 MG/DL (0.55-1.30); GLOMERULAR FILTRATION RATE > 60.0 (>60); GLUCOSE, FASTING 87 MG/DL (70-100); LIPASE 156 U/L (73-393); POTASSIUM SERUM 3.7 MEQ/L (3.5-5.1); SODIUM LEVEL 144 MEQ/L (136-145); TOTAL PROTEIN 6.2 GM/DL (6.4-8.2)
[2021-04-08 15:38] VITALS: BP 105/59
--- NOTE | 2021-04-08 15:39 | REP ---
INDICATION: RUQ pain worse with food. COMPARISON: None. TECHNIQUE: Routine ultrasound. FINDINGS: The gallbladder is fluid filled without evidence of gallstone. The wall is not thickened. The common bile duct measures 3 mm. The liver shows normal size and attenuation. The pancreas shows normal size and echo pattern. The right kidney shows normal size measuring 12 cm in length. There is no hydronephrosis, mass, cyst or calculus. IMPRESSION: Normal right upper quadrant ultrasound. <Electronically signed by Jay Olsen > 04/08/21 [id number]
[2021-04-08] MEDS ORDERED: PROT1TAB2 PO (15:43)
== END 2021-04-08 16:57 | disposition home or self-care (01) ==
LOC: M ED 13:29
DX: R10.11 Right upper quadrant pain (principal); Z79.899 Other long term (current) drug therapy

== ENCOUNTER → 2021-04-18 | Outpatient (CLI) | payer OTHER ==
[~2021-04-18] MED LIST changes: +BACL10TA2; +DICL1GEL3; +GABA-1171; +MIRE1IUD; +PROHANCE 279.3MG/ML 15ML VIAL As Ordered ONE; +PROT1TAB2 PO
--- NOTE | 2021-04-19 13:17 | REPVR ---
PROCEDURE INFORMATION: Exam: MR Cervical Spine Without and With Contrast Exam date and time: 04/18/2021 6:30 PM Age: 25 years old Clinical indication: Pain; Cervicalgia TECHNIQUE: Imaging protocol: Multiplanar magnetic resonance images of the cervical spine without and with contrast. Contrast material: PROHANCE; Contrast volume: 10 ml; Contrast route: INTRAVENOUS (IV); COMPARISON: No relevant prior studies available. FINDINGS: Vertebrae: There is no acute fracture or listhesis. Marrow signal is within normal limits. Spinal cord: Normal signal. No cord compression. No abnormal enhancement. C2-C3: There is shallow disc bulging. No significant neural foraminal or spinal stenosis. C3-C4: There is shallow disc bulging. No significant neural foraminal or spinal stenosis. C4-C5: There is shallow disc bulging. No significant neural foraminal or spinal stenosis. C5-C6: There is shallow disc bulging. There is mild facet hypertrophy. No significant neural foraminal or spinal stenosis. C6-C7: There is shallow disc bulging. There is mild facet hypertrophy. No significant neural foraminal or spinal stenosis. C7-T1: No significant disc disease. No significant spinal stenosis. Soft tissues: Unremarkable. Vertebral arteries: Expected flow voids in the vertebral arteries. IMPRESSION: Mild degenerative disc disease without canal or foraminal compromise. Electronically signed by: Sherry Stapleton On 04/19/2021 13:17:17 PM
== END ==
LOC: M RAD 17:30
PROVIDERS: ATTEND Family Medicine
DX: M54.2 Cervicalgia (principal)

== ENCOUNTER 2021-04-28 09:54 | Emergency (ER) | payer OTHER ==
[~2021-04-28] VITALS: Ht 147.3 cm; Wt 53.2 kg
[~2021-04-28 09:54] MED LIST changes: -PROHANCE 279.3MG/ML 15ML VIAL As Ordered ONE
[2021-04-28 12:17] VITALS: BP 113/69
== END 2021-04-28 12:45 | disposition home or self-care (01) ==
LOC: M ED 09:54
DX: B34.1 Enterovirus infection, unspecified (principal); J45.909 Unspecified asthma, uncomplicated; K21.9 Gastro-esophageal reflux disease without esophagitis; F41.9 Anxiety disorder, unspecified; F31.9 Bipolar disorder, unspecified; Z86.19 Personal history of other infectious and parasitic diseases; Z97.5 Presence of (intrauterine) contraceptive device; Z79.899 Other long term (current) drug therapy

== ENCOUNTER 2021-07-22 11:43 | Emergency (ER) | payer OTHER ==
[~2021-07-22] VITALS: Ht 149.9 cm; Wt 50.3 kg
[~2021-07-22 11:43] MED LIST changes: -FLUO10CA16; +FLUO10CA18
[2021-07-22] MEDS ORDERED: QUET1TAB17 (11:53)
[2021-07-22] MEDS ORDERED: TRAM50TA2 (11:53)
[2021-07-22] MEDS ORDERED: OLAN2.5T25 (11:53)
[2021-07-22] MEDS ORDERED: MORPHINE 10 MG/ML 1ML VIAL (J2270) IM ONE (13:20)
[2021-07-22 14:25] VITALS: BP 126/66
== END 2021-07-22 14:27 | disposition home or self-care (01) ==
LOC: M ED 11:43
DX: S62.346A Nondisplaced fracture of base of fifth metacarpal bone, right hand, initial encounter for closed fracture (principal); W20.8XXA Other cause of strike by thrown, projected or falling object, initial encounter; Y92.009 Unspecified place in unspecified non-institutional (private) residence as the place of occurrence of the external cause; Y93.9 Activity, unspecified; Y99.9 Unspecified external cause status; F31.9 Bipolar disorder, unspecified; Z79.899 Other long term (current) drug therapy
CPT/HCPCS: 73130; 96372; 99283; J2270

== ENCOUNTER → 2021-07-26 | Outpatient (CLI) | payer OTHER ==
[~2021-07-26] MED LIST changes: +FLUO10CA16; -FLUO10CA18; +OLAN2.5T25; +TRAM50TA2
== END ==
LOC: M PAIN 11:30
PROVIDERS: ATTEND Anesthesiology
DX: M79.18 Myalgia, other site (principal); M54.2 Cervicalgia; M47.812 Spondylosis without myelopathy or radiculopathy, cervical region; Z79.891 Long term (current) use of opiate analgesic; J45.909 Unspecified asthma, uncomplicated; F17.290 Nicotine dependence, other tobacco product, uncomplicated; Z79.899 Other long term (current) drug therapy

== ENCOUNTER → 2021-07-31 | Outpatient (CLI) | payer OTHER | LOC: M PAIN 14:45 | PROVIDERS: ATTEND Anesthesiology | DX: M54.2 Cervicalgia (principal); M79.10 Myalgia, unspecified site; J45.909 Unspecified asthma, uncomplicated; Z79.1 Long term (current) use of non-steroidal anti-inflammatories (NSAID); Z79.899 Other long term (current) drug therapy; F17.290 Nicotine dependence, other tobacco product, uncomplicated; Z91.040 Latex allergy status ==